=== PATIENT | female | born 1945 | race Caucasian/White ===

== ENCOUNTER → 2016-04-27 | Outpatient (CLI) | payer MEDICARE ==
[2016-04-27 14:48] LABS: Basophils % (A) 1 %; CHCM 33.2; Eosinophils # (A) 0.2 k/uL (0-0.7); Eosinophils % (A) 3 %; HCT 42.5 % (34.0-46.0); HDW 2.74; HGB 13.9 gm/dL (11.4-16.0); Luc # (Auto) 0.14; Luc % (Auto) 3; Lymphocytes # (A) 1.5 k/uL (1.0-4.8); Lymphocytes % (A) 27 %; MCH 29.8 pg (25.0-35.0); MCHC 32.8 g/dL (31.0-37.0); MCV 90.8 fL (80.0-100.0); Mean Platelet Volume 7.3; Monocytes # (A) 0.3 k/uL (0-1.0); Monocytes % (A) 6 %; Neutrophils # (A) 3.3 k/uL (1.3-7.7); Neutrophils % (A) 61 %; RBC 4.68 m/uL (3.80-5.40); RDW 13.5 % (11.5-15.5); WBC 5.5 k/uL (3.8-10.6); WBC (Perox) 5.78
[2016-04-27 15:21] LABS: Appearance,Urine Clear (Clear); Bilirubin,Urine Negative (Negative); Glucose,Urine (UA) 2+ (Negative); Ketones,Urine Negative (Negative); Leukocyte Esterase,Urine Moderate (Negative); Nitrite,Urine Negative (Negative); Particle Count 1279; Protein,Urine Negative (Negative); RBC,Urine <1 /hpf (0-5); Specific Gravity,Urine 1.007 (1.001-1.035); Squamous Epithelial Cell,Urine <1 /hpf (0-4); UA Billing (MACRO vs. MICRO) MICRO; Urobilinogen,Urine <2.0 mg/dL (<2.0); WBC,Urine 5 /hpf (0-5)
[2016-04-27 16:38] LABS: Calcium 9.2 mg/dL (8.4-10.2); Magnesium 2.1 mg/dL (1.6-2.3); Phosphorous 3.7 mg/dL (2.5-4.5); Potassium 4.6 mmol/L (3.5-5.1); Uric Acid 5.9 mg/dL (3.7-7.4)
[2016-04-27 16:49] LABS: % Iron Saturation 23.9 % (20-50)
== END | disposition home or self-care (01) ==
LOC: LABWHC1 14:14
PROVIDERS: ATTEND Internal Medicine Nephrology
DX: N39.0 Urinary tract infection, site not specified (principal); N18.3 Chronic kidney disease, stage 3 (moderate); D64.9 Anemia, unspecified; E55.9 Vitamin D deficiency, unspecified; E21.3 Hyperparathyroidism, unspecified; M10.9 Gout, unspecified
CPT/HCPCS: 36415; 80048; 81001; 82040; 82306; 82728; 83540; 83550; 83735; 83970; 84100; 84550; 85025; 87086

== ENCOUNTER → 2016-09-28 | Outpatient (CLI) | payer MEDICARE ==
[2016-09-28 13:48] LABS: Basophils # (A) 0.1 k/uL (0-0.2); Basophils % (A) 1 %; CH 30.5; CHCM 33.5; Eosinophils # (A) 0.2 k/uL (0-0.7); Eosinophils % (A) 3 %; HCT 44.8 % (34.0-46.0); HDW 2.69; HGB 14.9 gm/dL (11.4-16.0); Luc # (Auto) 0.12; Luc % (Auto) 2; Lymphocytes # (A) 1.3 k/uL (1.0-4.8); Lymphocytes % (A) 24 %; MCH 30.4 pg (25.0-35.0); MCHC 33.2 g/dL (31.0-37.0); MCV 91.7 fL (80.0-100.0); Mean Platelet Volume 7.2; Monocytes # (A) 0.4 k/uL (0-1.0); Monocytes % (A) 6 %; Neutrophils # (A) 3.6 k/uL (1.3-7.7); Neutrophils % (A) 64 %; RBC 4.89 m/uL (3.80-5.40); RDW 14.2 % (11.5-15.5); WBC 5.6 k/uL (3.8-10.6); WBC (Perox) 5.52
[2016-09-28 13:51] LABS: Appearance,Urine Clear (Clear); Bacteria,Urine Rare /hpf; Bilirubin,Urine Negative (Negative); Glucose,Urine (UA) 2+ (Negative); Ketones,Urine Negative (Negative); Leukocyte Esterase,Urine Large (Negative); Mucus,Urine Rare /hpf; Nitrite,Urine Negative (Negative); Particle Count 2951; Protein,Urine Negative (Negative); Specific Gravity,Urine 1.005 (1.001-1.035); Squamous Epithelial Cell,Urine 1 /hpf (0-4); UA Billing (MACRO vs. MICRO) MICRO; Urobilinogen,Urine <2.0 mg/dL (<2.0); WBC,Urine 5 /hpf (0-5)
[2016-09-28 14:05] LABS: Calcium 9.8 mg/dL (8.4-10.2); Magnesium 1.9 mg/dL (1.6-2.3); Phosphorous 4.2 mg/dL (2.5-4.5); Potassium 4.8 mmol/L (3.5-5.1); Uric Acid 6.2 mg/dL (3.7-7.4)
[2016-09-28 14:13] LABS: % Iron Saturation 23.9 % (20-50)
== END ==
LOC: LABWHC1 13:16
PROVIDERS: ATTEND Internal Medicine Nephrology
DX: E55.9 Vitamin D deficiency, unspecified (principal); D63.1 Anemia in chronic kidney disease; N18.3 Chronic kidney disease, stage 3 (moderate); M10.9 Gout, unspecified; N39.0 Urinary tract infection, site not specified
CPT/HCPCS: 36415; 80048; 81001; 82306; 82728; 83540; 83550; 83735; 83970; 84100; 84550; 85025

== ENCOUNTER → 2017-04-04 | Outpatient (CLI) | payer MEDICARE ==
[2017-04-04 14:29] LABS: Basophils # (A) 0.1 k/uL (0-0.2); Basophils % (A) 1 %; Eosinophils # (A) 0.2 k/uL (0-0.7); Eosinophils % (A) 3 %; HGB 14.6 gm/dL (11.4-16.0); Lymphocytes # (A) 1.5 k/uL (1.0-4.8); Lymphocytes % (A) 24 %; MCH 30.9 pg (25.0-35.0); MCHC 33.3 g/dL (31.0-37.0); MCV 92.9 fL (80.0-100.0); Mean Platelet Volume 6.9; Monocytes # (A) 0.3 k/uL (0-1.0); Monocytes % (A) 5 %; Neutrophils % (A) 65 %; Platelet Count 287 k/uL (150-450); RBC 4.74 m/uL (3.80-5.40); RDW 13.2 % (11.5-15.5); WBC 6.1 k/uL (3.8-10.6)
[2017-04-04 14:45] LABS: Calcium 9.4 mg/dL (8.4-10.2); Magnesium 1.8 mg/dL (1.6-2.3); Phosphorus 4.3 mg/dL (2.5-4.5); Potassium 4.4 mmol/L (3.5-5.1); Uric Acid 6.6 mg/dL (3.7-7.4)
[2017-04-04 15:07] LABS: Appearance,Urine Cloudy (Clear); Bacteria,Urine Many /hpf; Bilirubin,Urine Negative (Negative); Blood,Urine Negative (Negative); Color,Urine Yellow; Glucose,Urine (UA) 4+ (Negative); Hyaline Casts,Urine 19 /lpf (0-2); Ketones,Urine Negative (Negative); Leukocyte Esterase,Urine Moderate (Negative); Mucus,Urine Rare /hpf; Nitrite,Urine Negative (Negative); PH, Urine 5.5 (5.0-8.0); Protein,Urine Trace (Negative); RBC,Urine 1 /hpf (0-5); Squamous Epithelial Cell,Urine 9 /hpf (0-4); Urobilinogen,Urine <2.0 mg/dL (<2.0); WBC,Urine 10 /hpf (0-5)
[2017-04-04 18:58] LABS: Iron Saturation 16.67 (12.00-45.00)
[2017-04-04 20:25] LABS: Parathyroid Hormone Intact 74.2 pg/mL (14.0-72.0)
== END | disposition home or self-care (01) ==
LOC: LABWHC1 13:45
PROVIDERS: ATTEND Internal Medicine Nephrology
DX: N39.0 Urinary tract infection, site not specified (principal); D64.9 Anemia, unspecified; E55.9 Vitamin D deficiency, unspecified; E21.3 Hyperparathyroidism, unspecified; M10.9 Gout, unspecified; N18.3 Chronic kidney disease, stage 3 (moderate)
CPT/HCPCS: 36415; 80048; 81001; 82306; 82728; 83540; 83550; 83735; 83970; 84100; 84550; 85025

== ENCOUNTER → 2017-04-05 | Outpatient (CLI) | payer MEDICARE ==
--- NOTE | 2017-04-05 14:10 | XR ---
EXAMINATION TYPE: XR wrist limited LT DATE OF EXAM: 04/05/2017 CLINICAL HISTORY: Palpable mass of the left lateral aspect of the distal forearm and wrist with known arthritis. TECHNIQUE: Frontal and lateral views of the left wrist were obtained. COMPARISON: None FINDINGS: There is no acute fracture/dislocation evident in the left wrist. There is symmetric mild soft tissue swelling of the left wrist medially and laterally with obscuration of the fat planes at t he volar aspect of the wrist due to soft tissue swelling. No focal identifiable mass is noted within the soft tissues. Severe joint space narrowing, osteophytes, opposing surface sclerosis and [id number] articulation a re seen at the first carpometacarpal joint of the left hand with intercarpal distance narrowing and s mall carpal bone osseous cystic changes. Osseous subchondral cysts are also seen of the distal radius . No erosions or periosteal reaction. IMPRESSION: 1. Generalized mild soft tissue swelling of the left wrist acute fracture or dislocation. No focal so ft tissue mass. MR could be performed to evaluate for the soft tissues and further characterize the p alpable mass. 2. Extensive arthropathy of the left wrist with findings favoring osteoarthritis.
== END | disposition home or self-care (01) ==
LOC: RADXRMAIN 13:06
PROVIDERS: ATTEND Family Medicine
DX: M12.832 Other specific arthropathies, not elsewhere classified, left wrist (principal)

== ENCOUNTER → 2017-05-02 | Outpatient (CLI) | payer MEDICARE | END | disposition home or self-care (01) | LOC: RADECHMAIN 12:47 | PROVIDERS: ATTEND Family Medicine | DX: R00.2 Palpitations (principal) | CPT/HCPCS: 93270; 93271 ==

== ENCOUNTER → 2017-08-09 | Outpatient (CLI) | payer MEDICARE ==
[2017-08-09 16:24] LABS: Basophils # (A) 0.1 k/uL (0-0.2); Basophils % (A) 1 %; Eosinophils # (A) 0.3 k/uL (0-0.7); Eosinophils % (A) 4 %; HCT 38.4 % (34.0-46.0); HGB 13.1 gm/dL (11.4-16.0); Lymphocytes # (A) 1.9 k/uL (1.0-4.8); Lymphocytes % (A) 31 %; MCH 30.2 pg (25.0-35.0); MCHC 34.3 g/dL (31.0-37.0); MCV 88.2 fL (80.0-100.0); Mean Platelet Volume 6.4; Monocytes # (A) 0.4 k/uL (0-1.0); Monocytes % (A) 6 %; Neutrophils # (A) 3.3 k/uL (1.3-7.7); Neutrophils % (A) 55 %; Platelet Count 237 k/uL (150-450); RBC 4.35 m/uL (3.80-5.40); RDW 14.3 % (11.5-15.5)
[2017-08-09 16:50] LABS: Calcium 9.5 mg/dL (8.4-10.2); Potassium 4.4 mmol/L (3.5-5.1); Uric Acid 6.1 mg/dL (3.7-7.4)
[2017-08-09 16:54] LABS: Amorphous Sediment,Urine Rare /hpf; Appearance,Urine Cloudy (Clear); Bacteria,Urine Many /hpf; Bilirubin,Urine Negative (Negative); Blood,Urine Negative (Negative); Color,Urine Light Yellow; Glucose,Urine (UA) Negative (Negative); Hyaline Casts,Urine 5 /lpf (0-2); Ketones,Urine Negative (Negative); Leukocyte Esterase,Urine Moderate (Negative); Mucus,Urine Rare /hpf; Nitrite,Urine Negative (Negative); PH, Urine 5.5 (5.0-8.0); Protein,Urine Negative (Negative); Specific Gravity,Urine 1.006 (1.001-1.035); Squamous Epithelial Cell,Urine 5 /hpf (0-4); Urobilinogen,Urine <2.0 mg/dL (<2.0); WBC,Urine 18 /hpf (0-5)
[2017-08-10 01:07] LABS: Iron Saturation 16.09 (12.00-45.00)
[2017-08-10 01:11] LABS: Parathyroid Hormone Intact 56.3 pg/mL (14.0-72.0)
[2017-08-10 01:17] LABS: Vitamin D 25 Hydroxy 37.6 ng/mL (30.0-100.0)
== END | disposition home or self-care (01) ==
LOC: LABWHC1 15:21
PROVIDERS: ATTEND Nurse Practitioner Family
DX: E55.9 Vitamin D deficiency, unspecified (principal); D63.1 Anemia in chronic kidney disease; N18.3 Chronic kidney disease, stage 3 (moderate); M10.9 Gout, unspecified
CPT/HCPCS: 36415; 80048; 81001; 82306; 82728; 83540; 83550; 83970; 84550; 85025

== ENCOUNTER → 2018-07-26 | Outpatient (CLI) | payer MEDICARE ==
--- NOTE | 2018-07-27 09:11 | MM ---
Reason for exam: clinical finding. History: Patient is postmenopausal and history of other cancer. Benign excisional biopsy of the right breast, 1970. Took hormonal contraceptives for 9 years. Physical Findings: Nurse Summary: 2cm nodule in the right breast at 12 o'clock and a 2cm nodule int he left breast at 1 o'clock (nurse dw). MG 3D Diag Mammo W/Cad ARTHUR Bilateral CC and MLO view(s) were taken. No prior studies available for comparison. No comparisons. Bilateral circumscribed nodules. These results were verbally communicated with the patient and result sheet given to the patient on 07/26/18. ASSESSMENT: Incomplete: need additional imaging evaluation, BI-RAD 0 RECOMMENDATION: Ultrasound of both breasts.
--- NOTE | 2018-07-27 09:12 | USB ---
Reason for exam: additional evaluation requested from abnormal screening. History: Patient is postmenopausal and history of other cancer. Benign excisional biopsy of the right breast, 1970. Took hormonal contraceptives for 9 years. US Breast Limited BILAT Right limited breast ultrasound including focal area of concern, retroareolar and axilla demonstrates a 0.6 x 0.6 x 0.5cm oval node at 10 o'clock. Left limited breast ultrasound including focal area of concern, retroareolar and axilla demonstrates a 0.7 x 0.7 x 0.5cm oval node at 1 o'clock. These results were verbally communicated with the patient and result sheet given to the patient on 07/26/18. ASSESSMENT: Benign, BI-RAD 2 RECOMMENDATION: Routine screening mammogram of both breasts in 1 year. Manage patient on a clinical basis.
== END | disposition home or self-care (01) ==
LOC: RADMAMWWP 13:46
PROVIDERS: ATTEND Family Medicine
DX: N63.0 Unspecified lump in unspecified breast (principal); R92.8 Other abnormal and inconclusive findings on diagnostic imaging of breast
CPT/HCPCS: 77066; 76642; G0279; 77062

== ENCOUNTER → 2020-06-12 | Outpatient (CLI) | payer MEDICARE ==
--- NOTE | 2020-06-14 19:05 | US ---
EXAMINATION TYPE: US kidneys/renal and bladder DATE OF EXAM: 06/12/2020 COMPARISON: 09/11/2015 CLINICAL HISTORY: 75-year-old female N18.3 CKD stage 3. EXAM MEASUREMENTS: Right Kidney: 9.3 x 4.1 x 4.6 cm Left Kidney: 9.8 x 4.6 x 4.0 cm Right Kidney: Similar lobulated contour. No hydronephrosis. Some mild perinephric edema is noted. Left Kidney: lobular contour, prominent 1.5 cm midpole cortical lobulation, appears similar to previo us ultrasound. Given a more hypoechoic appearance here now, precautionary 6 month follow-up is recomm ended. No hydronephrosis. Bladder: wnl IMPRESSION: 1. Mild perinephric edema which may be seen with senescent change or chronic kidney disease. 2. No hydronephrosis. 3. Focal 1.5 cm mid pole contour lobulation of the left kidney. There was a similar morphology previo usly. Precautionary six-month follow-up recommended as the area appears more hypoechoic, probably on a technical basis.
== END | disposition home or self-care (01) ==
LOC: RADUSWWP 13:40
PROVIDERS: ATTEND Internal Medicine Nephrology
DX: N18.30 Chronic kidney disease, stage 3 unspecified (principal); Q63.1 Lobulated, fused and horseshoe kidney
CPT/HCPCS: 76770

== ENCOUNTER → 2020-07-22 | Outpatient (CLI) | payer MEDICARE ==
[2020-07-23 03:32] LABS: African American GFR (CKD) 29.2 (60.0-200.0); Anion Gap 10.8 mmol/L (4.00-12.00); Calcium 8.7 mg/dL (8.7-10.3); Carbon Dioxide 24.2 mmol/L (21.6-31.8); Non-African American GFR(CKD) 25.2 (60.0-200.0); Potassium 5.1 mmol/L (3.5-5.5)
== END | disposition home or self-care (01) ==
LOC: LABWHC1 13:08
PROVIDERS: ATTEND Internal Medicine Interventional Cardiology
DX: I27.20 Pulmonary hypertension, unspecified (principal); I25.10 Atherosclerotic heart disease of native coronary artery without angina pectoris
CPT/HCPCS: 36415; 80048

== ENCOUNTER → 2020-12-18 | Outpatient (CLI) | payer MEDICARE ==
--- NOTE | 2020-12-18 13:24 | XR ---
EXAMINATION TYPE: XR Hip Complete RT DATE OF EXAM: 12/18/2020 CLINICAL HISTORY: pain TECHNIQUE: AP and frogleg views of the right hip are obtained. COMPARISON: None. FINDINGS: There is no acute fracture/dislocation evident. The joint space appears within normal li mits. The overlying soft tissue appears unremarkable. IMPRESSION: 1. There is no acute fracture or dislocation. ICD 10 NO FRACTURE, INITIAL EVALUATION
== END | disposition home or self-care (01) ==
LOC: RADXRMAIN 12:53
PROVIDERS: ATTEND Family Medicine
DX: M25.551 Pain in right hip (principal)
CPT/HCPCS: 73502

== ENCOUNTER → 2021-02-25 | Outpatient (CLI) | payer MEDICARE ==
--- NOTE | 2021-02-25 19:32 | US ---
EXAMINATION TYPE: US kidneys/renal and bladder DATE OF EXAM: 02/25/2021 COMPARISON: 06/12/2020 CLINICAL HISTORY: 75-year-old female N18.30 Chronic kidney disease, stage III. TECHNIQUE: Multiple sonographic images of the kidneys and bladder are obtained. FINDINGS: EXAM MEASUREMENTS: Right Kidney: 9.1x5.2x4.2 cm Left Kidney: 11.0x5.8x4.8 cm Right Kidney: No hydronephrosis. Left Kidney: No hydronephrosis. There is a 2.2x1.5x1.4cm hypoechoic cortical lesion at the midpole, p reviously measured 1.4 cm. Bladder: wnl Bilateral Jets seen: Yes IMPRESSION: 1. Unable to exclude interval enlargement of a hypoechoic cortical lobulation at the left kidney midp ole from 1.4 cm now measuring 2.2 cm. Indolent neoplasm/RCC should be excluded. Recommend contrast en hanced renal mass protocol CT or MRI. 2. No hydronephrosis.
== END | disposition home or self-care (01) ==
LOC: RADUSWWP 14:45
PROVIDERS: ATTEND Family Medicine
DX: N18.30 Chronic kidney disease, stage 3 unspecified (principal)
CPT/HCPCS: 76770

== ENCOUNTER → 2021-03-08 | Outpatient (CLI) | payer MEDICARE | END | disposition home or self-care (01) | LOC: LABWHC1 11:53 | PROVIDERS: ATTEND Family Medicine | DX: Z20.822 Contact with and (suspected) exposure to COVID-19 (principal); J06.9 Acute upper respiratory infection, unspecified ==

== ENCOUNTER → 2021-06-24 | Outpatient (CLI) | payer MEDICARE ==
--- NOTE | 2021-06-24 16:36 | US ---
EXAMINATION TYPE: US kidneys/renal and bladder DATE OF EXAM: 06/24/2021 COMPARISON: CT abdomen 2016. Most recent ultrasound February 25, 2021 CLINICAL HISTORY: R31.9 Hematuria. Hematuria EXAM MEASUREMENTS: Right Kidney: 8.6 x 3.4 x 3.9 cm Left Kidney: 9.6 x 3.9 x 3.4 cm Right Kidney: No hydronephrosis or masses seen Left Kidney: Hypoechoic area seen upper pole measuring 2.2 x 1.3 x 1.7 cm. Bladder: anechoic Bilateral Jets seen: Yes There is no evidence for hydronephrosis at this point in time. Cortical thinning in the left kidney. Redemonstration isoechoic area laterally mid pole level left kidney felt to reflect lobulated cortex on image [address] coronal image 59. The urinary bladder is satisfactorily distended. B ilateral ureteral jets are seen. IMPRESSION: Source of hematuria is not identified. If symptoms persist further investigation with verito al protocol contrast enhanced CT or MRI would be advised.
== END | disposition home or self-care (01) ==
LOC: RADUSWWP 14:11
PROVIDERS: ATTEND Internal Medicine Nephrology
DX: R31.9 Hematuria, unspecified (principal)
CPT/HCPCS: 76770

== ENCOUNTER 2022-07-05 13:24 | Inpatient (IN) | payer MEDICARE ==
[2022-07-05] MEDS ORDERED: SODIUM CHLORIDE 0.9% 1,000 ML IV STA (14:29)
[2022-07-05] MEDS ORDERED: PANTOPRAZOLE 40 MG/10 ML VIAL IVP STA (14:30)
[2022-07-05 15:00] LABS: Anisocytosis Slight; Basophils % (A) 1 %; Eosinophils # (A) 0.3 k/uL (0-0.7); Eosinophils % (A) 5 %; HCT 22.8 % (34.0-46.0); HGB 7.2 gm/dL (11.4-16.0); Hypochromasia Marked; Lymphocytes # (A) 1.2 k/uL (1.0-4.8); Lymphocytes % (A) 23 %; MCH 31.6 pg (25.0-35.0); MCHC 31.8 g/dL (31.0-37.0); MCV 99.3 fL (80.0-100.0); Macrocytosis Slight; Mean Platelet Volume 8.2; Monocytes # (A) 0.3 k/uL (0-1.0); Monocytes % (A) 6 %; Neutrophils # (A) 3.5 k/uL (1.3-7.7); Neutrophils % (A) 64 %; Platelet Count 331 k/uL (150-450); RBC 2.29 m/uL (3.80-5.40); WBC 5.5 k/uL (3.8-10.6)
[2022-07-05] MEDS ORDERED: GABAPENTIN 100 MG CAP PO STA (15:09)
[2022-07-05] MEDS ORDERED: oxyCODONE-APAP 10-325MG 1 EACH TAB PO STA (15:09)
[2022-07-05 15:13] LABS: Albumin 3.7 g/dL (3.5-5.0); Calcium 8.1 mg/dL (8.4-10.2); Potassium 4.3 mmol/L (3.5-5.1); Total Bilirubin 0.6 mg/dL (0.2-1.3); Total Protein 6.5 g/dL (6.3-8.2)
[2022-07-05 15:15] LABS: INR 0.9 (<1.2); Partial Thromboplastin Time 20.4 sec (22.0-30.0)
[2022-07-05 15:18] LABS: Prothrombin Time 9.9 sec (9.0-12.0)
[2022-07-05] MEDS ORDERED: NALOXONE 0.4 MG/ML 1 ML VIAL IV PRN (16:54)
[2022-07-05] MEDS ORDERED: SODIUM CHLORIDE 0.9% 1,000 ML IV SCH (17:00)
--- NOTE | 2022-07-05 17:04 | ED ---
GI Bleed HPI - General Chief complaint: GI Bleed Stated complaint: Abnormal Labs Time Seen by Provider: 07/05/22 14:29 Source: patient Mode of arrival: ambulatory Limitations: no limitations - History of Present Illness Initial comments: Patient is a 77-year-old female presents to the emergency department for rectal bleeding. Patient was evaluated at [facility] on 06/23/22 for rectal bleeding. At this time hemoglobin was 7.8, very decreased from her previous on 06/16 at 11.4. Patient was given a unit of blood. Her warfarin and Plavix were stopped. Patient CT of the abdomen and pelvis which showed no acute changes. She had EGD and colonoscopy showing nonbleeding gastric ulcer, antral gastritis, non-bleeding peptic ulcer, diverticulosis, internal hemorrhoid. Apparently they did not have capsule endoscopy to visualize the small bowel. Patient was referred to Rachel Matias she has not arranged a set appointment yet. Patient continues to have intermittent rectal bleeding that she describes as bright red streaks in her stool and sometimes in the toilet. Patient has generalized pain in her abdomen which she states is unchanged. Overall patient feels very fatigued and weak. She denies fever, chills, nausea, vomiting. Patient is on Protonix. She currently is not on her warfarin or Plavix. Yesterday she got labs drawn her primary care provider she was called today and told her hemoglobin was 6.9 instructed to come to the emergency department. - Related Data Home Medications Medication Instructions Recorded Confirmed Bimatoprost [Lumigan 0.01% Ophth 1 drop BOTH EYES DAILY 06/07/21 04/29/22 Soln] Bumetanide [Bumex] 1 mg PO BID 06/07/21 04/29/22 DULoxetine HCL [Cymbalta] 60 mg PO HS 06/07/21 04/29/22 Ergocalciferol [Vitamin D2 (1250 1,250 mcg PO Q14D 06/07/21 04/29/22 Mcg = 19321 Iu)] Gabapentin [Neurontin] 100 mg PO TID 06/07/21 04/29/22 INSULIN LISPRO (humaLOG) [humaLOG] 7 units SQ AC-TID 06/07/21 04/29/22 Insulin Glargine,Hum.rec.anlog 40 units SQ HS 06/07/21 04/29/22 [Peri Duquear] Isosorbide Mononitrate ER [Imdur] 60 mg PO DAILY 06/07/21 04/29/22 Nitroglycerin 0.4 mg SUBLINGUAL Q5M PRN 06/07/21 04/29/22 Potassium Chloride ER [K-Dur 20] 20 meq PO MOWEFR 06/07/21 04/29/22 Timolol [Betimol 0.5% Ophth Soln] 1 drop RIGHT EYE BID 06/07/21 04/29/22 oxyCODONE-APAP 10-325MG [Percocet 1 tab PO Q8HR PRN 06/07/21 04/29/22 10-325 mg] calcitrioL [Calcitriol] 0.25 mcg PO WEEKLY 04/04/22 04/29/22 Cyanocobalamin (Vitamin B-12) 1,000 mcg PO DAILY 07/05/22 07/05/22 [Vitamin B-12] Pantoprazole Sodium [Protonix] 40 mg PO AC-BID 07/05/22 07/05/22 Rosuvastatin Calcium 5 mg PO DAILY 07/05/22 07/05/22 carvediloL [Coreg] 3.125 mg PO BID 07/05/22 07/05/22 Allergies Allergy/AdvReac Type Severity Reaction Status Date / Time levofloxacin Allergy Unknown Verified 07/05/22 16:25 Penicillins Allergy Rash/Hives Verified 07/05/22 16:25 pistachio nut Allergy Dyspnea Verified 07/05/22 16:25 Wyooily-EHX-GyI Reductase Allergy Unknown Verified 07/05/22 16:25 Inhibitor Sulfa (Sulfonamide Allergy Rash/Hives Verified 07/05/22 16:25 Antibiotics) Review of Systems ROS Statement: Those systems with pertinent positive or pertinent negative responses have been documented in the HPI. ROS Other: All systems not noted in ROS Statement are negative. Past Medical History Past Medical History: Diabetes Mellitus, GERD/Reflux, GI Bleed, Myocardial Infarction (MS), Osteoarthritis (OA) Additional Past Medical History / Comment(s): CHRONIC BACK PAIN. Type 2 Diabetes Last Myocardial Infarction Date:: 05/11/2021 History of Any Multi-Drug Resistant Organisms: None Reported Past Surgical History: Back Surgery, Heart Catheterization With Stent, Hernia Repair, Joint Replacement, Orthopedic Surgery Additional Past Surgical History / Comment(s): L4, L5 LAMI WITH HARDWARE. RIGHT THORACIC STEAL. LEFT HEEL SPUR. RIGHT BACKERS CYST. BILATERAL KNEE ARTHROS COPIES. LEFT CHARLY. RIGHT ACHILLES TENDON REPAIR. BILATERAL CARPAL TUNNELS. BILATERAL CATARACTS. RIGHT TOTAL KNEE REPLACEMENT. LEFT ROTATOR CUFF AND BICEP REPAIR. Cardiac cath- RCA, LAD, CIRC. 05/13/2021. Past Anesthesia/Blood Transfusion Reactions: No Reported Reaction Date of Last Stent Placement:: 05/11/2021 Past Psychological History: No Psychological Hx Reported Smoking Status: Former smoker Past Alcohol Use History: None Reported Past Drug Use History: None Reported General Exam Limitations: no limitations General appearance: alert, in no apparent distress Head exam: Present: atraumatic, normocephalic, normal inspection Eye exam: Present: normal appearance, PERRL, EOMI. Absent: scleral icterus, conjunctival injection, periorbital swelling Respiratory exam: Present: normal lung sounds bilaterally. Absent: respiratory distress, wheezes, rales, rhonchi, stridor Cardiovascular Exam: Present: regular rate, normal rhythm, normal heart sounds. Absent: systolic murmur, diastolic murmur, rubs, gallop, clicks GI/Abdominal exam: Present: soft, normal bowel sounds. Absent: distended, tenderness, guarding, rebound, rigid Rectal exam: Present: normal rectal tone, bloody stool, hemorrhoids Neurological exam: Present: alert, oriented X3, CN II-XII intact Psychiatric exam: Present: normal affect, normal mood Skin exam: Present: warm, dry, intact, normal color. Absent: rash Course Vital Signs 07/05/22 07/05/22 07/05/22 13:40 15:02 16:15 Temperature 97.7 F 98.0 F Pulse Rate 69 80 66 Respiratory 20 17 Rate Blood Pressure 116/52 160/73 O2 Sat by Pulse 100 99 Oximetry 07/05/22 17:05 Temperature 97.9 F Pulse Rate 65 Respiratory 18 Rate Blood Pressure 158/69 O2 Sat by Pulse 98 Oximetry Medical Decision Making - Medical Decision Making Was pt. sent in by a medical professional or institution (, PA, TREASURY CONSULTANT, urgent care, hospital, or fpc...) When possible be specific @ -No Did you speak to anyone other than the patient for history (EMS, parent, family, police, friend...)? What history was obtained from this source @ -No Did you review nursing and triage notes (agree or disagree)? Why? @ -I reviewed and agree with nursing and triage notes Were old charts reviewed (outside hosp., previous admission, EMS record, old EKG, old radiological studies, urgent care reports/EKG's, fpc records)? Report findings @ -Reviewed previous colonoscopy by Dr. Dyer in April after positive cologuard which showed diverticulosis Differential Diagnosis (chest pain, altered mental status, abdominal pain women, abdominal pain men, vaginal bleeding, weakness, fever, dyspnea, syncope, headache, dizziness, GI bleed, back pain, seizure, CVA, palpatations, mental health)? @ -Differential GI Bleed: Esophageal varices, aortoenteric fistula, Juju-Murphy, gastritis, peptic ulcer disease, diverticulosis, inflammatory bowel disease, hemorrhoids, fissure, colitis, malignancy, Meckels diverticulum, this is not meant to be an all- inclusive list. EKG interpreted by me (3pts min.). @ -As above X-rays interpreted by me (1pt min.). @ -None done CT interpreted by me (1pt min.). @ -None done U/S interpreted by me (1pt. min.). @ -None done What testing was considered but not performed or refused? (CT, X-rays, U/S, labs)? Why? @ -Considered CT imaging Lewis patient has mild abdominal pain unchanged with no abdominal tenderness What meds were considered but not given or refused? Why? @ -None Did you discuss the management of the patient with other professionals (pr ofessionals i.e. , PA, TREASURY CONSULTANT, lab, RT, psych nurse, social psychologist, culinary director, teacher, logistics officer, rehabilitation caseworker)? Give summary @ -Yes, Dr. Dyer. See hospital course. Was smoking cessation discussed for >3mins.? @ -No Was critical care preformed (if so, how long)? @ -No Were there social determinants of health that impacted care today? How? (Homelessness, low income, unemployed, alcoholism, drug addiction, transportation, low edu. Level, literacy, decrease access to med. care, half-way, rehab)? @ -No Was there de-escalation of care discussed even if they declined (Discuss DNR or withdrawal of care, Hospice)? DNR status @ -No What co-morbidities impacted this encounter? (DM, HTN, Smoking, COPD, CAD, Cance r, CVA, ARF, Chemo, Hep., AIDS, mental health diagnosis, sleep apnea, morbid obesity)? @ -None Was patient admitted / discharged? Hospital course, mention meds given and route, prescriptions, significant lab abnormalities, going to OR and other pertinent info. @ -Patient presenting for GI bleed. Patient resting comfortably she is hemodynamically stable. Active bleeding visualized on rectal exam. Laboratory studies obtained. Hemoglobin is 7.2. Kidney function consistent with chronic kidney disease. Patient given Protonix and IV fluids she remained stable. Discussed case with Dr. Dyer who will perform scope. Case discussed with Riana Arce from [facility] who accepts admission Dr. Dyer is on consult Undiagnosed new problem with uncertain prognosis? @ -No Drug Therapy requiring intensive monitoring for toxicity (Heparin, Nitro, Insulin, Cardizem)? @ -No Were any procedures done? @ -No Diagnosis/symptom? @ -GI bleed Acute, or Chronic, or Acute on Chronic? @ -acute Uncomplicated (without systemic symptoms) or Complicated (systemic symptoms)? @ -complicated Side effects of treatment? @ -No Exacerbation, Progression, or Severe Exacerbation? @ -No Poses a threat to life or bodily function? How? (Chest pain, USA, MS, pneumonia, PE, COPD, DKA, ARF, appy, cholecystitis, CVA, Diverticulitis, Homicidal, S uicidal, threat to staff... and all critical care pts) @ -No Dr. Horner is my attending - Lab Data Result diagrams: 07/05/22 14:50 07/05/22 14:50 Lab Results 07/05/22 07/05/22 07/05/22 Range/Units 14:50 14:50 14:50 WBC 5.5 (3.8-10.6) k/uL RBC 2.29 L (3.80-5.40) m/uL Hgb 7.2 L (11.4-16.0) gm/dL Hct 22.8 L (34.0-46.0) % MCV 99.3 (80.0-100.0) fL MCH 31.6 (25.0-35.0) pg MCHC 31.8 (31.0-37.0) g/dL RDW 17.0 H (11.5-15.5) % Plt Count 331 (150-450) k/uL MPV 8.2 Neutrophils % 64 % Lymphocytes % 23 % Monocytes % 6 % Eosinophils % 5 % Basophils % 1 % Neutrophils # 3.5 (1.3-7.7) k/uL Lymphocytes # 1.2 (1.0-4.8) k/uL Monocytes # 0.3 (0-1.0) k/uL Eosinophils # 0.3 (0-0.7) k/uL Basophils # 0.0 (0-0.2) k/uL Hypochromasia Marked Anisocytosis Slight Macrocytosis Slight PT 9.9 (9.0-12.0) sec INR 0.9 (<1.2) APTT 20.4 L (22.0-30.0) sec Sodium 138 (137-145) mmol/L Potassium 4.3 (3.5-5.1) mmol/L Chloride 101 (98-107) mmol/L Carbon Dioxide 29 (22-30) mmol/L Anion Gap 8 mmol/L BUN 23 H (7-17) mg/dL Creatinine 1.94 H (0.52-1.04) mg/dL Est GFR (CKD-EPI)AfAm 28 (>60 ml/min/1.73 sqM) Est GFR (CKD-EPI)NonAf 24 (>60 ml/min/1.73 sqM) Glucose 84 (74-99) mg/dL Calcium 8.1 L (8.4-10.2) mg/dL Total Bilirubin 0.6 (0.2-1.3) mg/dL AST 32 (14-36) U/L ALT 16 (4-34) U/L Alkaline Phosphatase 50 (38-126) U/L Total Protein 6.5 (6.3-8.2) g/dL Albumin 3.7 (3.5-5.0) g/dL Stool Occult Blood (Negative) Blood Type Blood Type Confirm Blood Type Recheck Bld Type Recheck Status Antibody Screen Spec Expiration Date 07/05/22 07/05/22 07/05/22 Range/Units 14:50 15:02 15:10 WBC (3.8-10.6) k/uL RBC (3.80-5.40) m/uL Hgb (11.4-16.0) gm/dL Hct (34.0-46.0) % MCV (80.0-100.0) fL MCH (25.0-35.0) pg MCHC (31.0-37.0) g/dL RDW (11.5-15.5) % Plt Count (150-450) k/uL MPV Neutrophils % % Lymphocytes % % Monocytes % % Eosinophils % % Basophils % % Neutrophils # (1.3-7.7) k/uL Lymphocytes # (1.0-4.8) k/uL Monocytes # (0-1.0) k/uL Eosinophils # (0-0.7) k/uL Basophils # (0-0.2) k/uL Hypochromasia Anisocytosis Macrocytosis PT (9.0-12.0) sec INR (<1.2) APTT (22.0-30.0) sec Sodium (137-145) mmol/L Potassium (3.5-5.1) mmol/L Chloride (98-107) mmol/L Carbon Dioxide (22-30) mmol/L Anion Gap mmol/L BUN (7-17) mg/dL Creatinine (0.52-1.04) mg/dL Est GFR (CKD-EPI)AfAm (>60 ml/min/1.73 sqM) Est GFR (CKD-EPI)NonAf (>60 ml/min/1.73 sqM) Glucose (74-99) mg/dL Calcium (8.4-10.2) mg/dL Total Bilirubin (0.2-1.3) mg/dL AST (14-36) U/L ALT (4-34) U/L Alkaline Phosphatase (38-126) U/L Total Protein (6.3-8.2) g/dL Albumin (3.5-5.0) g/dL Stool Occult Blood Positive H (Negative) Blood Type A Negative Blood Type Confirm A Negative Blood Type Recheck No Previous Record Bld Type Recheck Status CABO Indicated Antibody Screen NEGATIVE Spec Expiration Date 07/08/2022 - 2349 Disposition Clinical Impression: GI bleed Disposition: ADMITTED IP TO THIS [facility] Condition: Stable Referrals: Chet Ndiaye DO [Primary Care Provider] - 1-2 days
[2022-07-05] MEDS ORDERED: NITROGLYCERIN SL TABS 0.4 MG TAB SUBLINGUAL PRN (17:20)
[2022-07-05] MEDS ORDERED: ERGOCALCIFEROL 1,250 MCG (50,000 IU) CAPSULE PO SCH (17:30)
[2022-07-05] MEDS: INSULIN ASPART (NovoLOG) 100 UNIT/ML VIAL SQ SCH (18:35)
[2022-07-05] MEDS: PANTOPRAZOLE 40 MG TABLET PO SCH (18:35)
[2022-07-05 18:39] LABS: Glucose,Whole Blood 68 mg/dL (70-110)
[2022-07-05] MEDS: DEXTROSE 5%-0.9% NACL 1,000 ML IV SCH (21:28)
[2022-07-05 21:32] LABS: Glucose,Whole Blood 128 mg/dL (70-110)
[2022-07-05] MEDS: oxyCODONE-APAP 10-325MG 1 EACH TAB PO PRN (21:32)
[2022-07-05] MEDS: GABAPENTIN 100 MG CAP PO SCH (21:32)
[2022-07-05] MEDS: DULoxetine HCL 60 MG CAPSULE.DR PO SCH (21:32)
[2022-07-05] MEDS: carvediloL 3.125 MG TAB PO SCH (21:32)
[2022-07-05] MEDS: TIMOLOL 0.5% OPHTH DROPS 5 ML BTL RIGHT EYE SCH (21:33)
[2022-07-05] MEDS: LATANOPROST 0.005% OPHTH DROPS 2.5 ML BTL BOTH EYES SCH (21:33)
[2022-07-05] MEDS: INSULIN DETEMIR (LEVEMIR) 100 UNIT/ML SYR SQ SCH (22:52)
[2022-07-06] MEDS: DEXTROSE 5%-0.9% NACL 1,000 ML IV SCH ×2 (04:25→23:59)
[2022-07-06 05:42] LABS: Anisocytosis Slight; Basophils % (A) 0 %; Eosinophils # (A) 0.2 k/uL (0-0.7); Eosinophils % (A) 4 %; HCT 22.9 % (34.0-46.0); HGB 7.1 gm/dL (11.4-16.0); Hypochromasia Marked; Lymphocytes # (A) 1.5 k/uL (1.0-4.8); Lymphocytes % (A) 26 %; MCH 31.8 pg (25.0-35.0); MCV 102.5 fL (80.0-100.0); Macrocytosis Moderate; Mean Platelet Volume 8.7; Monocytes # (A) 0.3 k/uL (0-1.0); Monocytes % (A) 5 %; Neutrophils # (A) 3.7 k/uL (1.3-7.7); Neutrophils % (A) 63 %; Platelet Count 295 k/uL (150-450); RBC 2.23 m/uL (3.80-5.40); RDW 17.2 % (11.5-15.5); WBC 5.9 k/uL (3.8-10.6)
[2022-07-06 05:55] LABS: Glucose,Whole Blood 192 mg/dL (70-110)
[2022-07-06] MEDS: PANTOPRAZOLE 40 MG TABLET PO SCH ×2 (06:13→17:12)
[2022-07-06] MEDS: BUMETANIDE 1 MG TAB PO SCH ×2 (06:13→17:17)
[2022-07-06] MEDS: oxyCODONE-APAP 10-325MG 1 EACH TAB PO PRN ×2 (06:18→17:12)
[2022-07-06] MEDS: INSULIN ASPART (NovoLOG) 100 UNIT/ML VIAL SQ SCH ×3 (06:46→17:13)
[2022-07-06] MEDS: CYANOCOBALAMIN 500 MCG TAB PO SCH (08:09)
[2022-07-06] MEDS: ATORVASTATIN 10 MG TAB PO SCH (08:09)
[2022-07-06] MEDS: ISOSORBIDE MONONITRATE ER 60 MG TAB.ER.24H PO SCH (08:09)
[2022-07-06] MEDS: GABAPENTIN 100 MG CAP PO SCH ×3 (08:10→21:33)
[2022-07-06] MEDS: carvediloL 3.125 MG TAB PO SCH ×2 (08:10→21:33)
[2022-07-06] MEDS: TIMOLOL 0.5% OPHTH DROPS 5 ML BTL RIGHT EYE SCH ×2 (08:10→21:38)
[2022-07-06] MEDS ORDERED: MAGNESIUM CITRATE 296 ML BOTTLE PO ONE (09:43)
--- NOTE | 2022-07-06 10:21 | P.CONS ---
History of Present Illness - Reason for Consult Consult date: 07/06/22 GI bleed Requesting physician: Colby Horner - Chief Complaint weakness, black stools - History of Present Illness This pleasant 77-year-old female with a past medical history including diabetes mellitus, hypertension, hyperlipidemia, coronary artery disease who was previously on Plavix and Coumadin. Patient presented to the emergency department as directed by her primary care physician for low hemoglobin. Patient states she's been feeling weak and fatigued. Was recently hospitalized at [facility] June 25 through 06/28/2022 for GI bleed. States she had been having dark bloody and black stool. She had a significant drop in her hemoglobin and was given 1 unit of blood as well as was seen by general surgery Dr. Espinoza and underwent EGD and colonoscopy. EGD with findings of a nonbleeding gastric ulcer, nonbleeding peptic ulcer, and antral gastritis. Colonoscopy with findings of diverticulosis and internal hemorrhoid. Patient also had a screening colonoscopy on 04/29/[address] Dyer that showed scattered diverticulosis without any neoplasia. Patient has not taken any anticoagulation or Plavix since 06/22/2022. She denies NSAID use. Patient states she had 2 black tarry stools this week. She states she has a history of constipation and irregular bowel movements. States she usually has a bowel movement every 3-4 days. She is denying any abdominal pain at this time however states during her last hospitalization she had abdominal discomfort more on the lateral sides of her abdomen and some in the upper abdomen. She denies any nausea or vomiting, no fevers or chills. Denies chest pain or shortness of breath. Today's labs WBC 5.9 hemoglobin 7.1 hematocrit 22 platelet count 295,000 INR 0.9 sodium 138 potassium 4.3 BUN 23 creatinine 1.9 total bilirubin 0.6 AST 32 ALT 16 alkaline phosphatase 50. Stool occult blood positive Review of Systems REVIEW OF SYSTEMS: CARDIOPULMONARY: No chest pain or shortness of breath. Gastrointestinal: No abdominal pain. No nausea or vomiting. No hematemesis, coffee-ground emesis. Black tarry stool. GENITOURINARY: No dysuria or hematuria. MUSCULOSKELETAL: Reports normal range of motion. Joint pain. SKIN: No rashes. No jaundice. ENDOCRINE: No chills, fevers. No excessive weight gain or loss. No polydipsia or polyuria. PSYCHIATRIC: Unremarkable. NEUROLOGY: No change in mental status. Denies headache. ENT: Vision unremarkable. CONSTITUTIONAL: No recent weight loss. No fever, chills, night sweats. Increased weakness and fatigue. Dizziness. Past Medical History Past Medical History: Coronary Artery Disease (CAD), Heart Failure, Diabetes Mellitus, GERD/Reflux, GI Bleed, Myocardial Infarction (ME), Osteoarthritis (OA), Renal Disease Additional Past Medical History / Comment(s): CHRONIC BACK PAIN. Type 2 Diabetes, ME 05/18 Last Myocardial Infarction Date:: 05/11/2021 History of Any Multi-Drug Resistant Organisms: None Reported Past Surgical History: Back Surgery, Heart Catheterization With Stent, Hernia Repair, Joint Replacement, Orthopedic Surgery Additional Past Surgical History / Comment(s): L3-S1 LAMI WITH HARDWARE. RIGHT THORACIC STEAL. LEFT HEEL SPUR. RIGHT BAKERS CYST. BILATERAL KNEE ARTHROSCOPIES. LEFT TKA. RIGHT ACHILLES TENDON REPAIR. BILATERAL CARPAL TUNNELS. BILATERAL CATARACTS. RIGHT TOTAL KNEE REPLACEMENT. LEFT ROTATOR CUFF AND BICEP REPAIR. Cardiac cath- RCA, LAD, CIRC. 05/13/2021. Past Anesthesia/Blood Transfusion Reactions: No Reported Reaction Date of Last Stent Placement:: 05/11/2021 Past Psychological History: Depression Smoking Status: Former smoker Past Alcohol Use History: None Reported Past Drug Use History: None Reported Medications and Allergies Home Medications Medication Instructions Recorded Confirmed Type Bimatoprost [Lumigan 0.01% Ophth 1 drop BOTH EYES HS 06/07/21 07/05/22 History Soln] Bumetanide [Bumex] 1 mg PO BID@0600,1600 06/07/21 07/05/22 History DULoxetine HCL [Cymbalta] 60 mg PO HS 06/07/21 07/05/22 History Ergocalciferol [Vitamin D2 (1250 1,250 mcg PO Q14D 06/07/21 07/05/22 History Mcg = 14522 Iu)] Gabapentin [Neurontin] 100 mg PO TID 06/07/21 07/05/22 History INSULIN LISPRO (humaLOG) [humaLOG] 7 units SQ AC-TID 06/07/21 07/05/22 History Insulin Glargine,Hum.rec.anlog 50 units SQ HS 06/07/21 07/05/22 History [Toueryn Solostar] Isosorbide Mononitrate ER [Imdur] 60 mg PO DAILY 06/07/21 07/05/22 History Nitroglycerin 0.4 mg SUBLINGUAL Q5M PRN 06/07/21 07/05/22 History Potassium Chloride ER [K-Dur 20] 20 meq PO MOWEFR 06/07/21 07/05/22 History Timolol [Betimol 0.5% Ophth Soln] 1 drop RIGHT EYE BID 06/07/21 07/05/22 History oxyCODONE-APAP 10-325MG [Percocet 1 tab PO Q6H PRN 06/07/21 07/05/22 History 10-325 mg] calcitrioL [Calcitriol] 0.25 mcg PO MOFR 04/04/22 07/05/22 History Cyanocobalamin (Vitamin B-12) 1,000 mcg PO DAILY 07/05/22 07/05/22 History [Vitamin B-12] Pantoprazole Sodium [Protonix] 40 mg PO AC-BID 07/05/22 07/05/22 History Rosuvastatin Calcium 5 mg PO DAILY 07/05/22 07/05/22 History carvediloL [Coreg] 3.125 mg PO BID 07/05/22 07/05/22 History Allergies Allergy/AdvReac Type Severity Reaction Status Date / Time levofloxacin Allergy Unknown Verified 07/05/22 16:25 Penicillins Allergy Rash/Hives Verified 07/05/22 16:25 pistachio nut Allergy Dyspnea Verified 07/05/22 16:25 Flghady-ZAO-FnT Reductase Allergy Unknown Verified 07/05/22 16:25 Inhibitor Sulfa (Sulfonamide Allergy Rash/Hives Verified 07/05/22 16:25 Antibiotics) Physical Exam Vitals: Vital Signs Temp Pulse Pulse Resp BP BP Pulse Ox 07/06/22 07:05 98.7 F 63 16 127/66 93 L 07/06/22 01:43 98.4 F 84 18 125/69 88 L 07/05/22 22:15 98.2 F 70 18 163/70 96 07/05/22 20:00 96.6 F L 70 16 165/66 95 07/05/22 19:05 98.7 F 65 17 165/74 95 07/05/22 18:12 97.7 F 72 16 145/61 95 07/05/22 17:05 97.9 F 65 18 158/69 98 07/05/22 16:15 98.0 F 66 17 160/73 99 07/05/22 15:02 80 07/05/22 13:40 97.7 F 69 20 116/52 100 Intake and Output 07/05/22 07/06/22 07/06/22 22:59 06:59 14:59 Output Total 200 Balance -200 Output: Urine 200 Other: Voiding Method Toilet # Voids 3 Weight 90.718 kg 93.3 kg General appearance: The patient is alert, oriented, appears in no acute distress. HET: Head is normocephalic and atraumatic. Conjunctiva pink. Sclera anicteric. Neck: Supple without lymphadenopathy. Trachea midline. Heart: S1 S2. Regular rate and rhythm. Lungs: Clear to auscultation. Abdomen: Soft, nontender, nondistended with bowel sounds. No guarding or rigidity. Skin: No rashes. No jaundice. Extremities: Normal skin color and turgor. No pedal edema. Neurological: No focal deficits. Alert and oriented x3. Results CBC & Chem 7: 07/06/22 05:17 07/05/22 14:50 Labs: Abnormal Lab Results - Last 24 Hours (Table) 07/05/22 07/05/22 07/05/22 Range/Units 14:50 14:50 14:50 RBC 2.29 L (3.80-5.40) m/uL Hgb 7.2 L (11.4-16.0) gm/dL Hct 22.8 L (34.0-46.0) % MCV (80.0-100.0) fL RDW 17.0 H (11.5-15.5) % APTT 20.4 L (22.0-30.0) sec BUN 23 H (7-17) mg/dL Creatinine 1.94 H (0.52-1.04) mg/dL POC Glucose (mg/dL) (70-110) mg/dL Calcium 8.1 L (8.4-10.2) mg/dL Stool Occult Blood (Negative) 07/05/22 07/05/22 07/05/22 Range/Units 15:02 18:35 21:31 RBC (3.80-5.40) m/uL Hgb (11.4-16.0) gm/dL Hct (34.0-46.0) % MCV (80.0-100.0) fL RDW (11.5-15.5) % APTT (22.0-30.0) sec BUN (7-17) mg/dL Creatinine (0.52-1.04) mg/dL POC Glucose (mg/dL) 68 L 128 H (70-110) mg/dL Calcium (8.4-10.2) mg/dL Stool Occult Blood Positive H (Negative) 07/06/22 07/06/22 Range/Units 05:17 05:53 RBC 2.23 L (3.80-5.40) m/uL Hgb 7.1 L (11.4-16.0) gm/dL Hct 22.9 L (34.0-46.0) % MCV 102.5 H (80.0-100.0) fL RDW 17.2 H (11.5-15.5) % APTT (22.0-30.0) sec BUN (7-17) mg/dL Creatinine (0.52-1.04) mg/dL POC Glucose (mg/dL) 192 H (70-110) mg/dL Calcium (8.4-10.2) mg/dL Stool Occult Blood (Negative) Assessment and Plan (1) GI bleed Narrative/Plan: 77-year-old female history coronary artery disease who had previously been on Plavix and Coumadin for cardiac stents and atrial fibrillation was seen a little over a week ago at a outside hospital for concerns for GI bleed. At that time she had been reporting dark bloody stools and was noted to be anemic. She was given a unit of blood and underwent EGD colonoscopy with Dr. Espinoza. She had outpatient blood work and her physician and told her to come to the emergency department due to low hemoglobin. She continues to have symptomatic anemia and black tarry stools. Noted to have a hemoglobin of 7.1 on admission. Concerns for small bowel bleed noted and patient's discharge paperwork. We'll proceed with small bowel capsule endoscopy. Further recommendations forthcoming based on study findings. Current Visit: Yes Status: Acute Code(s): K92.2 - GASTROINTESTINAL HEMORRHAGE, UNSPECIFIED SNOMED Code(s): 43309645 (2) Coronary artery disease Current Visit: Yes Status: Acute Code(s): I25.10 - ATHSCL HEART DISEASE OF [place] CORONARY ARTERY W/O ANG PCTRS SNOMED Code(s): 87533338 (3) Symptomatic anemia Current Visit: Yes Status: Acute Code(s): D64.9 - ANEMIA, UNSPECIFIED SNOMED Code(s): 846187093 (4) Type 2 diabetes mellitus Current Visit: Yes Status: Acute Code(s): E11.9 - TYPE 2 DIABETES MELLITUS WITHOUT COMPLICATIONS SNOMED Code(s): 36569664 Plan: 1. Continue symptomatic and supportive care 2. Keep nothing by mouth other than magnesium citrate. May have clear liquid diet 2 hours post start of small bowel capsule study 3. M and just keepagnesium citrate ordered 4. Continue to hold anticoagulation/antiplatelet 5. Patient will undergo small bowel video capsule endoscopy this afternoon 6. Further recommendations forthcoming based on findings Thank you for this consultation, we will continue to follow. Dr. Slim Dyer I agree with the dictator's note, documented as a scribe by Iza Molina.
[2022-07-06] MEDS ORDERED: FUROSEMIDE 10 MG/ML 2 ML VIAL IV ONE ×2 (10:30→15:30)
[2022-07-06 11:24] LABS: Glucose,Whole Blood 185 mg/dL (70-110)
[2022-07-06] MEDS ORDERED: SIMETHICONE 40 MG/0.6 ML DROPS 2,000 MG/30 ML BOTTLE PO ONE (12:26)
--- NOTE | 2022-07-06 12:47 | HP ---
HISTORY AND PHYSICAL CHIEF COMPLAINT: History of GI bleed. HISTORY OF PRESENT ILLNESS: This is a 77-year-old woman with a past medical history of multiple medical problems including CAD, diabetes mellitus, GERD, being followed by Dr. Chet Ndiaye. The patient was recently admitted to [facility] for GI bleed. Dr. Granados performed EGD colonoscopy. Colonoscopy apparently showed some polyps. The patient is now admitted to [facility] with complaints of rectal bleeding. Hemoglobin was found to be 7.1, previously it was 7.8. There is no history of any fever, rigors, or chills. Gastroenterology is following the patient, planning a capsule endoscopy. PAST MEDICAL HISTORY: Reviewed include CAD, recent history of GI bleed, rest of the history and rest of the chart is also reviewed. HOME MEDICATIONS: Reviewed include oxycodone, dose and rest of medications noted. ALLERGIES: Reviewed include penicillin. FAMILY HISTORY: No history of heart disease or strokes in the family. SOCIAL HISTORY: Previous history of smoking. REVIEW OF SYSTEMS: A 14-point review is negative except as mentioned earlier. PHYSICAL EXAMINATION: VITAL SIGNS: Pulse 63, blood pressure 110/69, respirations 16. HEENT: Conjunctivae normal. NECK: No jugular venous distention. CARDIOVASCULAR: S1, S2 muffled. RESPIRATIONS: Diminished at the bases. No rhonchi, no crackles. ABDOMEN: Soft, nontender. No masses palpable. LEGS: No edema, no swelling. NERVOUS SYSTEM: No focal deficit. SKIN: No ulcer, rash, bleeding. JOINTS: No active deforming arthropathy. LABORATORY DATA: Hemoglobin 7.1, labs are noted. ASSESSMENT AND PLAN: 1. GI bleed with acute blood loss anemia with acute on chronic GI bleed, history of recent colonoscopy showing colonic polyps. 2. History of coronary artery disease. 3. History of DJD. 4. History of chronic back pain. RECOMMENDATIONS AND DISCUSSION: This 77-year-old woman presented with multiple complex medical issues, we will monitor the patient closely, continue the current medications, monitor the patient closely. I would recommend 1 unit transfusion. GI consultation, capsule endoscopy. Hold antiplatelet agents for now. Otherwise, guarded prognosis because of multiple complex medical issues. Further recommendations to follow. Home medication will be resumed once they are confirmed. MMODL / IJN: [id number] /
[2022-07-06 16:19] LABS: Glucose,Whole Blood 184 mg/dL (70-110)
[2022-07-06] MEDS ORDERED: POTASSIUM CHLORIDE ER 20 MEQ TAB.ER PO SCH (17:20)
[2022-07-06 19:23] LABS: Glucose,Whole Blood 198 mg/dL (70-110)
[2022-07-06] MEDS: INSULIN DETEMIR (LEVEMIR) 100 UNIT/ML SYR SQ SCH (21:33)
[2022-07-06] MEDS: DULoxetine HCL 60 MG CAPSULE.DR PO SCH (21:33)
[2022-07-06] MEDS: LATANOPROST 0.005% OPHTH DROPS 2.5 ML BTL BOTH EYES SCH (21:38)
[2022-07-07] MEDS: oxyCODONE-APAP 10-325MG 1 EACH TAB PO PRN ×2 (01:19→15:43)
[2022-07-07 05:59] LABS: Glucose,Whole Blood 110 mg/dL (70-110)
[2022-07-07] MEDS: DEXTROSE 5%-0.9% NACL 1,000 ML IV SCH (06:02)
[2022-07-07] MEDS: PANTOPRAZOLE 40 MG TABLET PO SCH (06:59)
[2022-07-07] MEDS: BUMETANIDE 1 MG TAB PO SCH ×2 (06:59→15:43)
[2022-07-07] MEDS: INSULIN ASPART (NovoLOG) 100 UNIT/ML VIAL SQ SCH ×3 (07:06→16:57)
[2022-07-07] MEDS: ATORVASTATIN 10 MG TAB PO SCH (08:13)
[2022-07-07] MEDS: CYANOCOBALAMIN 500 MCG TAB PO SCH (08:13)
[2022-07-07] MEDS: GABAPENTIN 100 MG CAP PO SCH ×2 (08:13→15:43)
[2022-07-07] MEDS: ISOSORBIDE MONONITRATE ER 60 MG TAB.ER.24H PO SCH (08:13)
[2022-07-07] MEDS: carvediloL 3.125 MG TAB PO SCH (08:13)
[2022-07-07] MEDS: TIMOLOL 0.5% OPHTH DROPS 5 ML BTL RIGHT EYE SCH (08:14)
[2022-07-07 10:01] LABS: HCT 23.9 % (37.2-46.3); HGB 7.1 g/dL (12.0-15.0); MCH 29.7 pg (27.0-32.0); MCHC 29.7 g/dL (32.0-37.0); Mean Platelet Volume 10.1 fL (9.5-12.2); NRBC Per 100 WBC 0 /100 WBCS (0.0-0.0); Platelet Count 232 X 10*3/uL (140-440); RBC 2.39 X 10*6/uL (4.10-5.20); RDW 18.5 % (11.5-14.5); WBC 7.35 X 10*3/uL (4.50-10.00)
[2022-07-07 10:34] LABS: African American GFR (CKD) 30.7 (60.0-200.0); BUN/Creat Ratio 9.61 Ratio (12.00-20.00); Blood Urea Nitrogen 17.3 mg/dL (9.0-27.0); Calcium 8.4 mg/dL (8.7-10.3); Non-African American GFR(CKD) 26.5 (60.0-200.0); Potassium 4.2 mmol/L (3.5-5.5)
[2022-07-07 11:08] LABS: Glucose,Whole Blood 103 mg/dL (70-110)
--- NOTE | 2022-07-07 12:20 | P.PN ---
Subjective Progress Note Date: 07/07/22 Principal diagnosis: GI bleed This pleasant 77-year-old female with a past medical history including diabetes mellitus, hypertension, hyperlipidemia, coronary artery disease who was previously on Plavix and Coumadin. Patient presented to the emergency department as directed by her primary care physician for low hemoglobin. Patient states she's been feeling weak and fatigued. Was recently hospitalized at [facility] June 25 through 06/28/2022 for GI bleed. States she had been having dark bloody and black stool. She had a significant drop in her hemoglobin and was given 1 unit of blood as well as was seen by general surgery Dr. Espinoza and underwent EGD and colonoscopy. EGD with findings of a nonbleeding gastric ulcer, nonbleeding peptic ulcer, and antral gastritis. Colonoscopy with findings of diverticulosis and internal hemorrhoid. Patient al so had a screening colonoscopy on 04/29/[address] Dyer that showed scattered diverticulosis without any neoplasia. Patient has not taken any anticoagulation or Plavix since 06/22/2022. She denies NSAID use. Patient states she had 2 black tarry stools this week. She states she has a history of constipation and irregular bowel movements. States she usually has a bowel movement every 3-4 days. She is denying any abdominal pain at this time however states during her last hospitalization she had abdominal discomfort more on the lateral sides of her abdomen and some in the upper abdomen. She denies any nausea or vomiting, no fevers or chills. Denies chest pain or shortness of breath. Today's labs WBC 5.9 hemoglobin 7.1 hematocrit 22 platelet count 295,000 INR 0.9 sodium 138 potassium 4.3 BUN 23 creatinine 1.9 total bilirubin 0.6 AST 32 ALT 16 alkaline phosphatase 50. Stool occult blood positive 07/07/2022: Patient was seen and examined today as a follow-up. Yesterday she underwent small bowel capsule endoscopy. She states she's had some loose stool following her magnesium citrate which were still dark. She received 1 unit of blood yesterday afternoon. She states she was feeling pretty good until she ate this morning and then she felt very tired. Repeat hemoglobin today 7.1. She denies any abdominal pain, nausea vomiting. Small bowel video capsule endoscopy revealed active bleeding in the distal small bowel/jejunum and proximal ileum. Objective - Vital Signs Vital signs: Vital Signs Temp 98.6 F 07/07/22 07:10 Pulse 71 07/07/22 07:10 Resp 16 07/07/22 07:10 BP 152/62 07/07/22 07:10 Pulse Ox 96 07/07/22 07:10 FiO2 Intake & Output 07/06/22 07/07/22 07/07/22 18:59 06:59 18:59 Intake Total 310 Balance 310 Intake: Blood Product 310 Rc As-1 Unit 310 [id number] Other: Voiding Method Toilet # Voids 1 2 - Exam General appearance: The patient is alert, oriented, appears in no acute distress. HET: Head is normocephalic and atraumatic. Conjunctiva pink. Sclera anicteric. Neck: Supple without lymphadenopathy. Abdomen: Soft, nontender, nondistended with bowel sounds. No guarding or rigidity. Extremities: Normal skin color and turgor. No pedal edema Skin: No rashes, no jaundice Neurological: No focal deficits. Alert and oriented. - Labs CBC & Chem 7: 07/07/22 03:58 07/07/22 03:58 Labs: Abnormal Lab Results - Last 24 Hours (Table) 07/05/22 07/06/22 07/06/22 Range/Units 14:50 16:18 19:22 RBC (4.10-5.20) X 10*6/uL Hgb (12.0-15.0) g/dL Hct (37.2-46.3) % MCV (80.0-97.0) fL MCHC (32.0-37.0) g/dL RDW (11.5-14.5) % Carbon Dioxide (20.0-27.5) mmol/L Anion Gap (10.00-18.00) mmol/L Creatinine (0.6-1.5) mg/dL Est GFR (CKD-EPI)AfAm (60.0-200.0) Est GFR (CKD-EPI)NonAf (60.0-200.0) BUN/Creatinine Ratio (12.00-20.00) Ratio POC Glucose (mg/dL) 184 H 198 H (70-110) mg/dL Calcium (8.7-10.3) mg/dL Crossmatch See Detail 07/07/22 07/07/22 Range/Units 03:58 03:58 RBC 2.39 L (4.10-5.20) X 10*6/uL Hgb 7.1 L (12.0-15.0) g/dL Hct 23.9 L (37.2-46.3) % MCV 100.0 H (80.0-97.0) fL MCHC 29.7 L (32.0-37.0) g/dL RDW 18.5 H (11.5-14.5) % Carbon Dioxide 28.0 H (20.0-27.5) mmol/L Anion Gap 9.00 L (10.00-18.00) mmol/L Creatinine 1.8 H (0.6-1.5) mg/dL Est GFR (CKD-EPI)AfAm 30.7 L (60.0-200.0) Est GFR (CKD-EPI)NonAf 26.5 L (60.0-200.0) BUN/Creatinine Ratio 9.61 L (12.00-20.00) Ratio POC Glucose (mg/dL) (70-110) mg/dL Calcium 8.4 L (8.7-10.3) mg/dL Crossmatch Assessment and Plan (1) GI bleed Narrative/Plan: 77-year-old female history coronary artery disease who had previously been on Plavix and Coumadin for cardiac stents and atrial fibrillation was seen a little over a week ago at a outside hospital for concerns for GI bleed. At that time she had been reporting dark bloody stools and was noted to be anemic. She was given a unit of blood and underwent EGD colonoscopy with Dr. Espinoza. She had outpatient blood work and her physician and told her to come to the emergency department due to low hemoglobin. She continues to have symptomatic anemia and black tarry stools. Noted to have a hemoglobin of 7.1 on admission. Concerns for small bowel bleed noted and patient's discharge paperwork. We'll proceed with small bowel capsule endoscopy. Further recommendations forthcoming based on study findings. Small bowel video capsule endoscopy with active bleeding in the distal small bowel/jejunum, proximal ileum. Recommend transfer to tertiary center for advanced gastroenterology services and possible CT angiogram with interventional radiology for embolization. Will transfuse 1 unit, continue to hold any anticoagulation. Current Visit: Yes Status: Acute Code(s): K92.2 - GASTROINTESTINAL HEMORRHAGE, UNSPECIFIED SNOMED Code(s): 63170403 (2) Coronary artery disease Current Visit: Yes Status: Acute Code(s): I25.10 - ATHSCL HEART DISEASE OF [place] CORONARY ARTERY W/O ANG PCTRS SNOMED Code(s): 81517671 (3) Symptomatic anemia Current Visit: Yes Status: Acute Code(s): D64.9 - ANEMIA, UNSPECIFIED SNOMED Code(s): 772871567 (4) Type 2 diabetes mellitus Current Visit: Yes Status: Acute Code(s): E11.9 - TYPE 2 DIABETES MELLITUS WITHOUT COMPLICATIONS SNOMED Code(s): 63022567 Plan: 1. Continue symptomatic and supportive care 2. Clear liquid diet 3. Daily CBC, transfuse for hemoglobin less than 7 4. Transfuse 1 unit of blood 5. Continue to hold anticoagulation 6. Patient is status post small bowel video capsule endoscopy with active bleeding in the distal small bowel. Discussed with primary medicine recommend transfer to tertiary center with advanced gastroenterology and interventional radiology for possible embolization. Patient agreeable for transfer. Thank you for this consultation, we will continue to follow. Dr. Slim Dyer I agree with the dictator's note, documented as a scribe by Iza Molina.
[2022-07-07 13:53] VITALS: RESP 16
[2022-07-07] MEDS ORDERED: FUROSEMIDE 10 MG/ML 2 ML VIAL IV ONE (14:22)
--- NOTE | 2022-07-07 14:32 | P.DS ---
Providers Date of admission: 07/06/22 10:30 Expected date of discharge: 07/07/22 Attending physician: Malia Whatley Consults: 07/05/22 16:54 Consult Physician Routine Consulting Provider: Waleska Dyer Consult Reason/Comments: GI bleed Do you want consulting provider notified?: Already Contacted Primary care physician: Chet Senthil [facility] Course: Final diagnosis GI bleed with acute blood loss anemia with acute on chronic GI bleed, history of recent colonoscopy showing colonic polyps, internal hemorrhoid Status post small bowel capsule study showing active bleeding in the distal small bowel/jejunum and proximal ileum History of coronary artery disease history of degenerative joint disease History of chronic back pain Diabetes mellitus, type II, insulin-dependent History of heart failure, unknown EF GERD Chronic renal disease History of depression GI prophylaxis DVT prophylaxis Full code Discharge disposition Patient is being transferred in a stable condition with guarded prognosis to [facility]. Patient has been accepted by Dr. Castelan and will be evaluated by GI with interventional radiology. Patient will follow-up with Dr. Ndiaye in the outpatient setting upon discharge. Patient is to currently to continue holding Plavix and Coumadin. Total time taken is greater than 35 minutes. Hospital course This is a 77-year-old female who was recently admitted with lower abdominal pain dark stools and GI bleed. Patient recently was at [facility] and discharged after surgery evaluated and underwent EGD/colonoscopy showing gastritis with duodenal ulcer nonbleeding and had been instructed to hold Coumadin and Plavix. Patient was having repeat labs and a follow-up for low hemoglobin and sent to the hospital for further evaluation. Hemoglobin was 7.1 and received 1 unit of PRBCs yesterday. Patient underwent small Bowel Study Showing an Active Distal Small Bowel Bleed at the Proximal Ileum and GI Dr. Dyer agreeable and recommending transfer to tertiary treatment center for possible interventional radiology embolization with advanced GI services. Transfer team was contacted and transfer was initiated for [facility] and accepted by Dr. Castelan. Currently awaiting a bed assignment. Patient's hemoglobin today is 7.1 again and currently receiving a unit of PRBC and will follow-up on repeat he moglobin and will continue to monitor closely and transfuse. Patients vitals are currently stable and patient does have some dull aching although denies pain at this time. Patient is maintained on IV Protonix twice daily and will continue with close monitoring of hemoglobin. Currently no reports of chest pain, shortness of breath, or palpitations. Patient is afebrile. No reports of nausea or vomiting and patient is tolerating clear liquid diet. Patient will be transferred to [facility] once a bed becomes available. Transfer team will contact unit when a bed is available. Physical exam: Gen: This is a 77-year-old female who is awake, alert and oriented 3, well- developed, well-nourished, obese HEENT: Head is atraumatic, normocephalic. Pupils equal, round. Sclerae is a nicteric. NECK: Supple. No JVD. No lymphadenopathy. No thyromegaly. LUNGS: Clear to auscultation. No wheezes or rhonchi. No intercostal retractions. HEART: S1, S2 are muffled ABDOMEN: Soft. Bowel sounds are present. No masses. No tenderness. EXTREMITIES: No pedal edema. No calf tenderness. NEUROLOGICAL: Patient is awake, alert and oriented x3. Cranial nerves 2 through 12 are grossly intact. Please refer to medication reconciliation sheet for a list of medications. The impression and plan of care has been dictated by Alina Frausto, Nurse Practitioner as directed. Dr. Chacorta MD I have performed a history and examination and MDM of this patient, discussed the same with the dictator, and agree with the dictator's assessment and plan as written ,documented as a scribe. Based on total visit time, I have performed more than 50% of the visit. Patient Condition at Discharge: Stable Plan - Discharge Summary Discharge Rx Participant: No New Discharge Prescriptions: No Action Insulin Glargine,Hum.rec.anlog [Toubarbrao Solostar] 50 units SQ HS INSULIN LISPRO (humaLOG) [humaLOG] 7 units SQ AC-TID oxyCODONE-APAP 10-325MG [Percocet 10-325 mg] 1 tab PO Q6H PRN PRN Reason: Pain Potassium Chloride ER [K-Dur 20] 20 meq PO MOWEFR DULoxetine HCL [Cymbalta] 60 mg PO HS calcitrioL [Calcitriol] 0.25 mcg PO MOFR carvediloL [Coreg] 3.125 mg PO BID Cyanocobalamin (Vitamin B-12) [Vitamin B-12] 1,000 mcg PO DAILY Nitroglycerin 0.4 mg SUBLINGUAL Q5M PRN PRN Reason: Chest Pain Gabapentin [Neurontin] 100 mg PO TID Ergocalciferol [Vitamin D2 (1250 Mcg = 47210 Iu)] 1,250 mcg PO Q14D Isosorbide Mononitrate ER [Imdur] 60 mg PO DAILY Bumetanide [Bumex] 1 mg PO BID@0600,1600 Timolol [Betimol 0.5% Ophth Soln] 1 drop RIGHT EYE BID Bimatoprost [Lumigan 0.01% Ophth Soln] 1 drop BOTH EYES HS Rosuvastatin Calcium 5 mg PO DAILY Pantoprazole Sodium [Protonix] 40 mg PO AC-BID Discharge Medication List Bimatoprost [Lumigan 0.01% Ophth Soln] 1 drop BOTH EYES HS 06/07/21 [History] Bumetanide [Bumex] 1 mg PO BID@0600,1600 06/07/21 [History] DULoxetine HCL [Cymbalta] 60 mg PO HS 06/07/21 [History] Ergocalciferol [Vitamin D2 (1250 Mcg = 32012 Iu)] 1,250 mcg PO Q14D 06/07/21 [History] Gabapentin [Neurontin] 100 mg PO TID 06/07/21 [History] INSULIN LISPRO (humaLOG) [humaLOG] 7 units SQ AC-TID 06/07/21 [History] Insulin Glargine,Hum.rec.anlog [Toujeo Solostar] 50 units SQ HS 06/07/21 [History] Isosorbide Mononitrate ER [Imdur] 60 mg PO DAILY 06/07/21 [History] Nitroglycerin 0.4 mg SUBLINGUAL Q5M PRN 06/07/21 [History] Potassium Chloride ER [K-Dur 20] 20 meq PO MOWEFR 06/07/21 [History] Timolol [Betimol 0.5% Ophth Soln] 1 drop RIGHT EYE BID 06/07/21 [History] oxyCODONE-APAP 10-325MG [Percocet 10-325 mg] 1 tab PO Q6H PRN 06/07/21 [History] calcitrioL [Calcitriol] 0.25 mcg PO MOFR 04/04/22 [History] Cyanocobalamin (Vitamin B-12) [Vitamin B-12] 1,000 mcg PO DAILY 07/05/22 [History] Pantoprazole Sodium [Protonix] 40 mg PO AC-BID 07/05/22 [History] Rosuvastatin Calcium 5 mg PO DAILY 07/05/22 [History] carvediloL [Coreg] 3.125 mg PO BID 07/05/22 [History] Follow up Appointment(s)/Referral(s): Chet Ndiaye DO [Primary Care Provider] - 07/14/22 1:30 pm Discharge Disposition: OTHER INSTITUTION NOT DEFINED
[2022-07-07 15:47] VITALS: BP 171/70; PULSE 68; TEMP 98
[2022-07-07 16:16] LABS: Glucose,Whole Blood 181 mg/dL (70-110)
[2022-07-07 17:02] LABS: Anisocytosis Slight; Basophils % (A) 1 %; Eosinophils # (A) 0.2 k/uL (0-0.7); Eosinophils % (A) 3 %; HCT 28.5 % (34.0-46.0); Hypochromasia Moderate; Lymphocytes # (A) 1.2 k/uL (1.0-4.8); Lymphocytes % (A) 18 %; MCH 30.5 pg (25.0-35.0); MCHC 32.1 g/dL (31.0-37.0); Macrocytosis Slight; Mean Platelet Volume 8.8; Monocytes # (A) 0.5 k/uL (0-1.0); Monocytes % (A) 7 %; Neutrophils # (A) 4.8 k/uL (1.3-7.7); Neutrophils % (A) 70 %; Platelet Count 282 k/uL (150-450); Poikilocytosis Slight; RBC 3.01 m/uL (3.80-5.40); RDW 16.9 % (11.5-15.5); WBC 6.9 k/uL (3.8-10.6)
[2022-07-07 17:04] LABS: HGB 9.2 gm/dL (11.4-16.0)
[2022-07-07] MEDS ORDERED: PANTOPRAZOLE 40 MG/10 ML VIAL IVP SCH (21:00)
== END 2022-07-07 18:51 | disposition short-term general hospital (02) | DRG 378 ==
LOC: EC 13:24 → 4SSUR 17:42 → OBSVTOIN 07-06 10:30
PROVIDERS: ADMIT Hospitalist; ATTEND Hospitalist
PROC: 30233N1 Transfusion of Nonautologous Red Blood Cells into Peripheral Vein, Percutaneous Approach (ICD-10-PCS; 2022-07-06)
PROC: 0DJ07ZZ Inspection of Upper Intestinal Tract, Via Natural or Artificial Opening (ICD-10-PCS; principal; 2022-07-07)
DX: K92.2 Gastrointestinal hemorrhage, unspecified (principal); D62 Acute posthemorrhagic anemia; I13.0 Hypertensive heart and chronic kidney disease with heart failure and stage 1 through stage 4 chronic kidney disease, or unspecified chronic kidney disease; I50.9 Heart failure, unspecified; E11.22 Type 2 diabetes mellitus with diabetic chronic kidney disease; F32.A Depression, unspecified; K92.1 Melena; N18.9 Chronic kidney disease, unspecified; G89.29 Other chronic pain; I25.10 Atherosclerotic heart disease of native coronary artery without angina pectoris; K21.9 Gastro-esophageal reflux disease without esophagitis; M19.90 Unspecified osteoarthritis, unspecified site; K59.00 Constipation, unspecified; I48.91 Unspecified atrial fibrillation; E78.5 Hyperlipidemia, unspecified; K64.8 Other hemorrhoids; K63.5 Polyp of colon; M54.9 Dorsalgia, unspecified; Z96.653 Presence of artificial knee joint, bilateral; Z87.891 Personal history of nicotine dependence; I25.2 Old myocardial infarction; Z88.2 Allergy status to sulfonamides; Z88.0 Allergy status to penicillin; Z91.018 Allergy to other foods; Z88.8 Allergy status to other drugs, medicaments and biological substances; Z79.899 Other long term (current) drug therapy; Z79.4 Long term (current) use of insulin; Z79.891 Long term (current) use of opiate analgesic; Z87.19 Personal history of other diseases of the digestive system; Z95.5 Presence of coronary angioplasty implant and graft
CPT/HCPCS: 36415; 80048; 80053; 82272; 85025; 85027; 85610; 85730; 86850; 86900; 86901; 86920; 87635; 91110; 96361; 96374; 99285

== ENCOUNTER 2023-03-21 13:02 | Inpatient (IN) | payer MEDICARE ==
--- NOTE | 2023-03-21 13:53 | ED ---
General Adult HPI - General Chief complaint: Weakness Stated complaint: SOB weakness Time Seen by Provider: 03/21/23 13:25 Source: patient, family, RN notes reviewed, old records reviewed Mode of arrival: wheelchair Limitations: no limitations - History of Present Illness Initial comments: This is a 77-year-old female who presents to the emergency department complaining of generalized weakness and shortness of breath. Patient states she was just released from [facility] yesterday he she was admitted there overnight for lip cellulitis as well as a urinary tract infection. Patient is currently on antibiotics for urinary tract infection. Patient is so weak it is hard for her to even get up and help her daughter move her around. Patient states she is much more short of breath with any exertion. Patient denies any chest pain or palpitations. Patient has abdominal pain patient is nausea vomiting diarrhea. Patient denies any headache patient has numbness weakness - Related Data Home Medications Medication Instructions Recorded Confirmed Bimatoprost [Lumigan 0.01% Ophth 1 drop BOTH EYES HS 06/07/21 07/05/22 Soln] Bumetanide [Bumex] 1 mg PO BID@0600,1600 06/07/21 07/05/22 DULoxetine HCL [Cymbalta] 60 mg PO HS 06/07/21 07/05/22 Ergocalciferol [Vitamin D2 (1250 1,250 mcg PO Q14D 06/07/21 07/05/22 Mcg = 16775 Iu)] Gabapentin [Neurontin] 100 mg PO TID 06/07/21 07/05/22 INSULIN LISPRO (humaLOG) [humaLOG] 7 units SQ AC-TID 06/07/21 07/05/22 Insulin Glargine,Hum.rec.anlog 50 units SQ HS 06/07/21 07/05/22 [Peri Goinsostjeanna] Isosorbide Mononitrate ER [Imdur] 60 mg PO DAILY 06/07/21 07/05/22 Nitroglycerin 0.4 mg SUBLINGUAL Q5M PRN 06/07/21 07/05/22 Potassium Chloride ER [K-Dur 20] 20 meq PO MOWEFR 06/07/21 07/05/22 Timolol [Betimol 0.5% Ophth Soln] 1 drop RIGHT EYE BID 06/07/21 07/05/22 oxyCODONE-APAP 10-325MG [Percocet 1 tab PO Q6H PRN 06/07/21 07/05/22 10-325 mg] calcitrioL [Calcitriol] 0.25 mcg PO MOFR 04/04/22 07/05/22 Cyanocobalamin (Vitamin B-12) 1,000 mcg PO DAILY 07/05/22 07/05/22 [Vitamin B-12] Pantoprazole Sodium [Protonix] 40 mg PO AC-BID 07/05/22 07/05/22 Rosuvastatin Calcium 5 mg PO DAILY 07/05/22 07/05/22 carvediloL [Coreg] 3.125 mg PO BID 07/05/22 07/05/22 Allergies Allergy/AdvReac Type Severity Reaction Status Date / Time levofloxacin Allergy Unknown Verified 03/21/23 13:09 Penicillins Allergy Rash/Hives Verified 03/21/23 13:09 pistachio nut Allergy Dyspnea Verified 03/21/23 13:09 Imimcie-XJO-ZeC Reductase Allergy Unknown Verified 03/21/23 13:09 Inhibitor Sulfa (Sulfonamide Allergy Rash/Hives Verified 03/21/23 13:09 Antibiotics) Review of Systems ROS Statement: Those systems with pertinent positive or pertinent negative responses have been documented in the HPI. ROS Other: All systems not noted in ROS Statement are negative. Past Medical History Past Medical History: Coronary Artery Disease (CAD), Heart Failure, Diabetes Mellitus, GERD/Reflux, GI Bleed, Myocardial Infarction (VA), Osteoarthritis (OA), Renal Disease Additional Past Medical History / Comment(s): CHRONIC BACK PAIN. Type 2 Diabetes, VA 05/18 Last Myocardial Infarction Date:: 05/11/2021 History of Any Multi-Drug Resistant Organisms: None Reported Past Surgical History: Back Surgery, Heart Catheterization With Stent, Hernia Repair, Joint Replacement, Orthopedic Surgery Additional Past Surgical History / Comment(s): L3-S1 LAMI WITH HARDWARE. RIGHT THORACIC STEAL. LEFT HEEL SPUR. RIGHT BAKERS CYST. BILATERAL KNEE ARTHROSCOPIES. LEFT TKA. RIGHT ACHILLES TENDON REPAIR. BILATERAL CARPAL TUNNELS. BILATERAL CATARACTS. RIGHT TOTAL KNEE REPLACEMENT. LEFT ROTATOR CUFF AND BICEP REPAIR. Cardiac cath- RCA, LAD, CIRC. 05/13/2021. Past Anesthesia/Blood Transfusion Reactions: No Reported Reaction Date of Last Stent Placement:: 05/11/2021 Past Psychological History: Depression Smoking Status: Former smoker Past Alcohol Use History: None Reported Past Drug Use History: None Reported General Exam - General Exam Comments Initial Comments: GENERAL: Patient is well-developed and well-nourished. Patient is nontoxic and well-hydr ated and is in mild distress. ENT: Neck is soft and supple. No significant lymphadenopathy is noted. Oropharynx is clear. Moist mucous membranes. Neck has full range of motion without eliciting any pain. EYES: The sclera were anicteric and conjunctiva were pink and moist. Extraocular movements were intact and pupils were equal round and reactive to light. Eyelids were unremarkable. PULMONARY: Unlabored respirations. Good breath sounds bilaterally. Patient has crackles in the bases bilaterally CARDIOVASCULAR: There is a regular rate and rhythm without any murmurs gallops or rubs. ABDOMEN: Soft and nontender with normal bowel sounds. No palpable organomegaly was noted. There is no palpable pulsatile mass. SKIN: Skin is clear with no lesions or rashes and otherwise unremarkable. NEUROLOGIC: Patient is alert and oriented x3. Cranial nerves II through XII are grossly int act. Motor and sensory are also intact. Normal speech, volume and content. Symmetrical smile. MUSCULOSKELETAL: Normal extremities with adequate strength and full range of motion. LYMPHATICS: No significant lymphadenopathy is noted PSYCHIATRIC: Normal psychiatric evaluation. Limitations: no limitations Course Vital Signs 03/21/23 13:09 Temperature 97.4 F L Pulse Rate 104 H Respiratory 18 Rate Blood Pressure 153/78 O2 Sat by Pulse 96 Oximetry Medical Decision Making - Medical Decision Making EKG as interpreted by myself EKG shows atrial fibrillation at 88 bpm QRS 95 QT interval 374 QTc is 420. Patient's EKG shows no ST segment ovation or depression. Was pt. sent in by a medical professional or institution (, PA, COMPUTER REPAIR INSTRUCTOR, urgent care, hospital, or [facility]...) When possible be specific @ -No Did you speak to anyone other than the patient for history (EMS, parent, family, police, friend...)? What history was obtained from this source @ -Patient's daughter gave most of the history Did you review nursing and triage notes (agree or disagree)? Why? @ -I reviewed and agree with nursing and triage notes Were old charts reviewed (outside hosp., previous admission, EMS record, old EKG, old radiological studies, urgent care reports/EKG's, [facility] records)? Report findings @ -I reviewed prior charts and lab work on the patient Differential Diagnosis (chest pain, altered mental status, abdominal pain women, abdominal pain men, vaginal bleeding, weakness, fever, dyspnea, syncope, headache, dizziness, GI bleed, back pain, seizure, CVA, palpatations, mental health, musculoskeletal)? @ -Differential Weakness: Hypoglycemia, shock, sepsis, hyponatremia, anemia, infection, VA, ETOH, adverse medicine reaction, overdose, stroke, this is not meant to be an all-inclusive list. Differential Dyspnea: Coronary syndrome, arrhythmia, tamponade, asthma, COPD, pulmonary embolism, pneumonia, pneumothorax, pulmonary effusion, anaphylaxis, diabetic ketoacidosis, flailed chest, pulmonary contusion, diaphragmatic rupture, anemia, ne uromuscular, this is not meant to be an all-inclusive list. EKG interpreted by me (3pts min.). @ -As above X-rays interpreted by me (1pt min.). @ -Patient's chest x-ray is consistent with pulmonary edema CT interpreted by me (1pt min.). @ -None done U/S interpreted by me (1pt. min.). @ -None done What testing was considered but not performed or refused? (CT, X-rays, U/S, labs)? Why? @ -None What meds were considered but not given or refused? Why? @ -None Did you discuss the management of the patient with other professionals (professionals i.e. , PA, COMPUTER REPAIR INSTRUCTOR, lab, RT, psych nurse, social scientist, insurance commissioner, teacher, admissions officer, caseworker)? Give summary @ -I spoke with Dr. Hartley he agreed to admit the patient admit the patient wrote awaiting Was smoking cessation discussed for >3mins.? @ -No Was critical care preformed (if so, how long)? @ -35 minutes Were there social determinants of health that impacted care today? How? (Homelessness, low income, unemployed, alcoholism, drug addiction, transportation, low edu. Level, literacy, decrease access to med. care, care home, rehab)? @ -No Was there de-escalation of care discussed even if they declined (Discuss DNR or withdrawal of care, Hospice)? DNR status @ -No What co-morbidities impacted this encounter? (DM, HTN, Smoking, COPD, CAD, C ancer, CVA, ARF, Chemo, Hep., AIDS, mental health diagnosis, sleep apnea, morbid obesity)? @ -None Was patient admitted / discharged? Hospital course, mention meds given and route, prescriptions, significant lab abnormalities, going to OR and other pertinent info. @ -Patient was given Lasix for the congestive heart failure and placed nitroglycerin. Patient also had A-fib which she states is new onset. Patient did not want to start on blood thinners until she spoke with cardiology because she had a GI bleed in the past which was quite significant. Patient also has influenza A. Undiagnosed new problem with uncertain prognosis? @ -No Drug Therapy requiring intensive monitoring for toxicity (Heparin, Nitro, Insulin, Cardizem)? @ -No Were any procedures done? @ -No Diagnosis/symptom? @ -Influenza A Acute, or Chronic, or Acute on Chronic? @ -Acute Uncomplicated (without systemic symptoms) or Complicated (systemic symptoms)? @ -Uncomplicated Side effects of treatment? @ -No Exacerbation, Progression, or Severe Exacerbation? @ -No Poses a threat to life or bodily function? How? (Chest pain, USA, VA, pneumonia, PE, COPD, DKA, ARF, appy, cholecystitis, CVA, Diverticulitis, Homicidal, Suic idal, threat to staff... and all critical care pts) @ -No Diagnosis/symptom? @ -Acute pulmonary edema Acute, or Chronic, or Acute on Chronic? @ -Acute Uncomplicated (without systemic symptoms) or Complicated (systemic symptoms)? @ -Complicated Side effects of treatment? @ -None Exacerbation, Progression, or Severe Exacerbation] @ -No Poses a threat to life or bodily function? @ -Yes this can lead to hypoxia and endorgan dysfunction Diagnosis/symptom? @ -New onset A-fib Acute, or Chronic, or Acute on Chronic? @ -Acute Uncomplicated (without systemic symptoms) or Complicated (systemic symptoms)? @ -Complicated Side effects of treatment? @ -None Exacerbation, Progression, or Severe Exacerbation] @ -No Poses a threat to life or bodily function? @ -Yes this could lead to the production of blood clots and possible stroke - Lab Data Result diagrams: 03/21/23 13:56 03/21/23 13:56 Lab Results 03/21/23 03/21/23 03/21/23 Range/Units 13:56 13:56 13:56 WBC 10.8 H (3.8-10.6) k/uL RBC 3.84 (3.80-5.40) m/uL Hgb 11.5 (11.4-16.0) gm/dL Hct 35.7 (34.0-46.0) % MCV 93.0 (80.0-100.0) fL MCH 30.1 (25.0-35.0) pg MCHC 32.3 (31.0-37.0) g/dL RDW 15.4 (11.5-15.5) % Plt Count 306 (150-450) k/uL MPV 7.5 Neutrophils % 86 % Lymphocytes % 6 % Monocytes % 5 % Eosinophils % 2 % Basophils % 0 % Neutrophils # 9.3 H (1.3-7.7) k/uL Lymphocytes # 0.6 L (1.0-4.8) k/uL Monocytes # 0.5 (0-1.0) k/uL Eosinophils # 0.3 (0-0.7) k/uL Basophils # 0.0 (0-0.2) k/uL Hypochromasia Moderate PT 11.9 (10.0-12.5) sec INR 1.1 (<1.2) APTT 24.7 (22.0-30.0) sec D-Dimer 2.41 H (<0.60) mg/L FEU Sodium 135 L (137-145) mmol/L Potassium 4.5 (3.5-5.1) mmol/L Chloride 103 (98-107) mmol/L Carbon Dioxide 21 L (22-30) mmol/L Anion Gap 11 mmol/L BUN 53 H (7-17) mg/dL Creatinine 2.61 H (0.52-1.04) mg/dL Est GFR (CKD-EPI)AfAm 20 (>60 ml/min/1.73 sqM) Est GFR (CKD-EPI)NonAf 17 (>60 ml/min/1.73 sqM) Glucose 177 H (74-99) mg/dL Plasma Lactic Acid Walt (0.7-2.0) mmol/L Calcium 7.8 L (8.4-10.2) mg/dL Magnesium 2.2 (1.6-2.3) mg/dL Total Bilirubin 0.6 (0.2-1.3) mg/dL AST 38 H (14-36) U/L ALT 47 H (4-34) U/L Alkaline Phosphatase 101 (38-126) U/L Troponin I (0.000-0.034) ng/mL NT-Pro-B Natriuret Pep 09573 pg/mL Total Protein 6.7 (6.3-8.2) g/dL Albumin 3.4 L (3.5-5.0) g/dL Influenza Type A (PCR) (Not Detectd) Influenza Type B (PCR) (Not Detectd) RSV (PCR) (Not Detectd) SARS-CoV-2 (PCR) (Not Detectd) 03/21/23 03/21/23 03/21/23 Range/Units 13:56 13:56 13:56 WBC (3.8-10.6) k/uL RBC (3.80-5.40) m/uL Hgb (11.4-16.0) gm/dL Hct (34.0-46.0) % MCV (80.0-100.0) fL MCH (25.0-35.0) pg MCHC (31.0-37.0) g/dL RDW (11.5-15.5) % Plt Count (150-450) k/uL MPV Neutrophils % % Lymphocytes % % Monocytes % % Eosinophils % % Basophils % % Neutrophils # (1.3-7.7) k/uL Lymphocytes # (1.0-4.8) k/uL Monocytes # (0-1.0) k/uL Eosinophils # (0-0.7) k/uL Basophils # (0-0.2) k/uL Hypochromasia PT (10.0-12.5) sec INR (<1.2) APTT (22.0-30.0) sec D-Dimer (<0.60) mg/L FEU Sodium (137-145) mmol/L Potassium (3.5-5.1) mmol/L Chloride (98-107) mmol/L Carbon Dioxide (22-30) mmol/L Anion Gap mmol/L BUN (7-17) mg/dL Creatinine (0.52-1.04) mg/dL Est GFR (CKD-EPI)AfAm (>60 ml/min/1.73 sqM) Est GFR (CKD-EPI)NonAf (>60 ml/min/1.73 sqM) Glucose (74-99) mg/dL Plasma Lactic Acid Walt 1.1 (0.7-2.0) mmol/L Calcium (8.4-10.2) mg/dL Magnesium (1.6-2.3) mg/dL Total Bilirubin (0.2-1.3) mg/dL AST (14-36) U/L ALT (4-34) U/L Alkaline Phosphatase (38-126) U/L Troponin I <0.012 (0.000-0.034) ng/mL NT-Pro-B Natriuret Pep pg/mL Total Protein (6.3-8.2) g/dL Albumin (3.5-5.0) g/dL Influenza Type A (PCR) Detected A (Not Detectd) Influenza Type B (PCR) Not Detected (Not Detectd) RSV (PCR) Not Detected (Not Detectd) SARS-CoV-2 (PCR) Not Detected (Not Detectd) Critical Care Time Critical Care Time: Yes Total Critical Care Time: 35 Disposition Clinical Impression: Acute pulmonary edema, Influenza, New onset a-fib, Acute on chronic renal failure Disposition: ADMITTED IP TO THIS HOSP Referrals: Chet Ndiaye DO [Primary Care Provider] - 1-2 days Time of Disposition: 14:59
[2023-03-21 14:07] LABS: Basophils % (A) 0 %; Eosinophils # (A) 0.3 k/uL (0-0.7); Eosinophils % (A) 2 %; HCT 35.7 % (34.0-46.0); HGB 11.5 gm/dL (11.4-16.0); Hypochromasia Moderate; Lymphocytes # (A) 0.6 k/uL (1.0-4.8); Lymphocytes % (A) 6 %; MCH 30.1 pg (25.0-35.0); MCHC 32.3 g/dL (31.0-37.0); Mean Platelet Volume 7.5; Monocytes # (A) 0.5 k/uL (0-1.0); Monocytes % (A) 5 %; Neutrophils # (A) 9.3 k/uL (1.3-7.7); Neutrophils % (A) 86 %; Platelet Count 306 k/uL (150-450); RBC 3.84 m/uL (3.80-5.40); RDW 15.4 % (11.5-15.5); WBC 10.8 k/uL (3.8-10.6)
[2023-03-21 14:21] LABS: INR 1.1 (<1.2); Partial Thromboplastin Time 24.7 sec (22.0-30.0); Prothrombin Time 11.9 sec (10.0-12.5)
[2023-03-21 14:23] LABS: ALT 47 U/L (4-34); AST 38 U/L (14-36); African American GFR (CKD) 20 (>60 ml/min/1.73 sqM); Albumin 3.4 g/dL (3.5-5.0); Alkaline Phosphatase 101 U/L (38-126); Anion Gap 11 mmol/L; Blood Urea Nitrogen 53 mg/dL (7-17); Calcium 7.8 mg/dL (8.4-10.2); Carbon Dioxide 21 mmol/L (22-30); Chloride 103 mmol/L (98-107); Glucose 177 mg/dL (74-99); Magnesium 2.2 mg/dL (1.6-2.3); Non-African American GFR(CKD) 17 (>60 ml/min/1.73 sqM); Potassium 4.5 mmol/L (3.5-5.1); Sodium 135 mmol/L (137-145); Total Bilirubin 0.6 mg/dL (0.2-1.3); Total Protein 6.7 g/dL (6.3-8.2)
[2023-03-21 14:32] LABS: NT-Pro-B-Type Natriuretic Pept 20100 pg/mL
--- NOTE | 2023-03-21 14:34 | XR ---
EXAMINATION TYPE: XR chest 2V DATE OF EXAM: 03/21/2023 2:09 PM CLINICAL INDICATION:Female, 77 years old with history of Weakness; COMPARISON: Chest radiographs from 03/21/2014 TECHNIQUE: XR chest 2V Frontal and lateral views of the chest. FINDINGS: Lungs/Pleura: There is no evidence of pleural effusion, focal consolidation, or pneumothorax. Pulmonary vascularity: Unremarkable. Heart/mediastinum: Cardiomediastinal silhouette is enlarged and stable. Musculoskeletal: No acute osseous pathology. IMPRESSION: Low lung volumes with a generalized hazy appearance which could represent atelectasis versus pulmonar y edema correlate with serum BNP.
[2023-03-21] MEDS ORDERED: FUROSEMIDE 10 MG/ML 4 ML VIAL IV STA (14:44)
[2023-03-21] MEDS: FUROSEMIDE 10 MG/ML 4 ML VIAL IV SCH (15:13)
[2023-03-21 17:13] LABS: Glucose,Whole Blood 147 mg/dL (70-110)
[2023-03-21] MEDS ORDERED: FERROUS SULFATE 325 MG TAB PO PRN (18:55)
[2023-03-21] MEDS ORDERED: guaiFENesin SYRUP 100MG/5ML 200 MG/10 ML CUP PO PRN (18:57)
[2023-03-21] MEDS ORDERED: ONDANSETRON 4 MG/2 ML VIAL IVP PRN (18:57)
[2023-03-21] MEDS ORDERED: ACETAMINOPHEN TAB 325 MG TAB PO PRN (18:57)
[2023-03-21] MEDS ORDERED: DEXTROSE 50% SYRINGE 50 ML IVP PRN ×2 (18:58)
[2023-03-21] MEDS ORDERED: ERGOCALCIFEROL 1,250 MCG (50,000 IU) CAPSULE PO SCH (19:00)
[2023-03-21 20:02] LABS: Glucose,Whole Blood 159 mg/dL (70-110)
[2023-03-21] MEDS ORDERED: carvediloL 6.25 MG TAB PO SCH (21:00)
[2023-03-21] MEDS ORDERED: TIMOLOL 0.5% OPHTH DROPS 5 ML BTL RIGHT EYE SCH (21:00)
[2023-03-21] MEDS: NON FORMULARY DRUG (Rosuvastatin Calcium [Rosuvastatin Calcium] 5 MG Tablet) PO SCH (21:08)
[2023-03-21] MEDS: INSULIN ASPART (NovoLOG) 100 UNIT/ML VIAL SQ SCH (21:11)
[2023-03-21] MEDS: DULoxetine HCL 60 MG CAPSULE.DR PO SCH (21:11)
[2023-03-21] MEDS: GABAPENTIN 100 MG CAP PO SCH (21:11)
[2023-03-21] MEDS: LATANOPROST 0.005% OPHTH DROPS 2.5 ML BTL BOTH EYES SCH (21:11)
[2023-03-21] MEDS: HEPARIN SODIUM,PORCINE 5,000 UNIT/ML 1 ML VIAL SQ SCH (21:12)
[2023-03-21] MEDS: INSULIN DETEMIR (LEVEMIR) 100 UNIT/ML SYR SQ SCH (21:12)
[2023-03-21] MEDS: TIMOLOL 0.25% OPHTH DROPS 5 ML BTL BOTH EYES SCH (21:19)
[2023-03-22] MEDS: FUROSEMIDE 10 MG/ML 4 ML VIAL IV SCH ×3 (00:17→17:20)
--- NOTE | 2023-03-22 00:41 | P.HPIM ---
History of Present Illness H&P Date: 03/21/23 Chief Complaint: Shortness of breath Patient is a 77-year-old female with a past medical history of coronary artery disease status post stent placement, hypertension, diabetes type 2 insulin- dependent, history of GI bleed, osteoarthritis, chronic back pain, depression prior history of smoking presents to ER with complaints of generalized weakness and shortness of breath. Patient states that she was released from [facility] yesterday. She was admitted overnight for lip cellulitis as well as urinary tract infection. Patient is currently on Keflex for urinary tract infection. Patient went home and felt very weak and unable to get out of the bed With the help of her daughter. She became more short of breath especially with exertion. Denies any chest pain or palpitations. No nausea vomiting or diarrhea. No fever no chills. Chest x-ray showed low lung volumes with generalized hazy appearance which could represent atelectasis versus pulmonary edema correlate with serum BNP. EKG showed atrial fibrillation with low voltage QRS. Ventricular rate 88. Laboratory data showed WBC 10.8 hemoglobin 11.5 and platelets 306 D-dimer 2.41, sodium 135 potassium 4.5 chloride 103 BUN 53 and creatinine 2.61 and blood sugar 177 AST 38 ALT 47 alk phos 101 troponin x 1 [place] [id number] Influenza A detected. Review of Systems Constitutional: Patient denies any fever or chills . Generalized weakness and fatigue.. Abdomen: Patient denied any nausea or vomiting or abd. pain Cardiovascular: Patient denies any chest pain. Patient does have short of breath no palpitations. No leg swelling. Respiratory: patient does have cough without o sputum production. Positive for shortness of breath Neurologic: Patient denied any numbness or tingling or headache. Musculoskeletal: Patient denies any complaints of joint swelling or deformity. Skin: Negative Psychiatric: Negative Endocrine: No heat or cold intolerance. No recent weight gain. Genitourinary: No dysuria or hematuria. All other 14 point ROS negative except the above Past Medical History Past Medical History: Coronary Artery Disease (CAD), Heart Failure, Diabetes Mellitus, GERD/Reflux, GI Bleed, Myocardial Infarction (MD), Osteoarthritis (OA), Renal Disease Additional Past Medical History / Comment(s): CHRONIC BACK PAIN. Type 2 Diabetes, [place] 05/18 Last Myocardial Infarction Date:: 05/11/2021 History of Any Multi-Drug Resistant Organisms: None Reported Past Surgical History: Back Surgery, Heart Catheterization With Stent, Hernia Repair, Joint Replacement, Orthopedic Surgery Additional Past Surgical History / Comment(s): L3-S1 LAMI WITH HARDWARE. RIGHT THORACIC STEAL. LEFT HEEL SPUR. RIGHT BAKERS CYST. BILATERAL KNEE ARTHROSCOPIES. LEFT TKA. RIGHT ACHILLES TENDON REPAIR. BILATERAL CARPAL TUNNELS. BILATERAL CATARACTS. RIGHT TOTAL KNEE REPLACEMENT. LEFT ROTATOR CUFF AND BICEP REPAIR. Cardiac cath- RCA, LAD, CIRC. 05/13/2021. Past Anesthesia/Blood Transfusion Reactions: No Reported Reaction Date of Last Stent Placement:: 05/11/2021 Past Psychological History: Depression Smoking Status: Former smoker Past Alcohol Use History: None Reported Past Drug Use History: None Reported - Past Family History Father Family Medical History: Liver Disease Additional Family Medical History / Comment(s): Liver cirrhosis Mother Family Medical History: Congestive Heart Failure (CHF), Renal Disease Medications and Allergies Home Medications Medication Instructions Recorded Confirmed Type Bimatoprost [Lumigan 0.01% Ophth 1 drop BOTH EYES HS 06/07/21 03/21/23 History Soln] Bumetanide [Bumex] 1 mg PO BID@0600,1600 06/07/21 03/21/23 History DULoxetine HCL [Cymbalta] 60 mg PO HS 06/07/21 03/21/23 History INSULIN LISPRO (humaLOG) [humaLOG] 7 - 10 units SQ AC-TID 06/07/21 03/21/23 History Isosorbide Mononitrate ER [Imdur] 60 mg PO DAILY 06/07/21 03/21/23 History Nitroglycerin 0.4 mg SL Q5M PRN 06/07/21 03/21/23 History Potassium Chloride ER [K-Dur 20] 20 meq PO MOWEFR 06/07/21 03/21/23 History Timolol [Betimol 0.5% Ophth Soln] 1 drop RIGHT EYE BID 06/07/21 03/21/23 History oxyCODONE-APAP 10-325MG [Percocet 1 tab PO Q6H PRN 06/07/21 03/21/23 History 10-325 mg] calcitrioL [Calcitriol] 0.25 mcg PO MOWEFR 04/04/22 03/21/23 History Rosuvastatin Calcium 5 mg PO HS 05/09/23 01/23/24 History Aspirin EC [Ecotrin Low Dose] 81 mg PO DAILY 03/21/23 03/21/23 History Cephalexin [Keflex] 500 mg PO BID 03/21/23 03/21/23 History Cetirizine HCl 10 mg PO DAILY 03/21/23 03/21/23 History Cholecalciferol (Vitamin D3) 1,250 mcg PO Q7D 03/21/23 03/21/23 History [Vitamin D3] Clopidogrel [Plavix] 75 mg PO DAILY 03/21/23 03/21/23 History Ferrous Sulfate [Feosol] 325 mg PO DAILY PRN 03/21/23 03/21/23 History Gabapentin 300 mg PO TID@0600,1400,2200 03/21/23 03/21/23 History Insulin Glargine,Hum.rec.anlog 40 units PO HS 03/21/23 03/21/23 History [Toujeo Max Solostar] Metoprolol Succinate (ER) [Toprol 50 mg PO DAILY 03/21/23 03/21/23 History Xl] NIFEdipine XL [Procardia Xl] 30 mg PO DAILY 03/21/23 03/21/23 History Pantoprazole Sodium [Protonix] 20 mg PO DAILY 03/21/23 03/21/23 History carvediloL [Coreg] 6.25 mg PO HS 03/21/23 03/21/23 History carvediloL [Coreg] 12.5 mg PO DAILY 03/21/23 03/21/23 History clindamycin HCL 300 mg PO Q6H 03/21/23 03/21/23 History timoloL maleate [timoloL maleate 1 drop BOTH EYES BID 03/21/23 03/21/23 History 0.25%] Allergies Allergy/AdvReac Type Severity Reaction Status Date / Time levofloxacin Allergy Unknown Verified 03/21/23 17:01 Penicillins Allergy Rash/Hives Verified 03/21/23 17:01 pistachio nut Allergy Dyspnea Verified 03/21/23 17:01 [id number] Reductase Allergy Unknown Verified 03/21/23 17:01 Inhibitor Sulfa (Sulfonamide Allergy Rash/Hives Verified 03/21/23 17:01 Antibiotics) Physical Exam Vitals: Vital Signs Temp Pulse Resp BP Pulse Ox 03/21/23 15:00 99.5 F 87 18 142/83 03/21/23 13:09 97.4 F L 104 H 18 153/78 96 Intake and Output 03/21/23 03/21/23 03/21/23 06:59 14:59 22:59 Other: Weight 86.183 kg PHYSICAL EXAMINATION: Patient is lying in the bed , no acute distress, awake alert and oriented.. HEENT: Normocephalic. Neck is supple. Pupils reactive. Nostrils clear. Oral cavity is moist. Neck reveals no JVD, carotid bruits, or thyromegaly. CHEST EXAMINATION: Trachea is central. Symmetrical expansion. Patient does have diffuse crackles and coarse breath sounds. Nonlabored breathing. CARDIAC: Normal S1, S2 with no gallops. No murmurs ABDOMEN: Soft. Bowel sounds present. Nontender. No organomegaly. No abdominal bruits. Extremities: reveal no edema. No clubbing or cyanosis Neurologically awake, alert, oriented x2-3. No gross focal deficits noted Skin: No rash or skin lesions. Psychiatric: Coperative. Nonsuicidal, Musculoskeletal: No joint swelling or deformity. Normal range of motion. Results CBC & Chem 7: 03/21/23 13:56 03/21/23 13:56 Labs: Abnormal Lab Results - Last 24 Hours (Table) 03/21/23 03/21/23 03/21/23 Range/Units 13:56 13:56 13:56 WBC 10.8 H (3.8-10.6) k/uL Neutrophils # 9.3 H (1.3-7.7) k/uL Lymphocytes # 0.6 L (1.0-4.8) k/uL D-Dimer 2.41 H (<0.60) mg/L FEU Sodium 135 L (137-145) mmol/L Carbon Dioxide 21 L (22-30) mmol/L BUN 53 H (7-17) mg/dL Creatinine 2.61 H (0.52-1.04) mg/dL Glucose 177 H (74-99) mg/dL Calcium 7.8 L (8.4-10.2) mg/dL AST 38 H (14-36) U/L ALT 47 H (4-34) U/L Albumin 3.4 L (3.5-5.0) g/dL Influenza Type A (PCR) (Not Detectd) 03/21/23 Range/Units 13:56 WBC (3.8-10.6) k/uL Neutrophils # (1.3-7.7) k/uL Lymphocytes # (1.0-4.8) k/uL D-Dimer (<0.60) mg/L FEU Sodium (137-145) mmol/L Carbon Dioxide (22-30) mmol/L BUN (7-17) mg/dL Creatinine (0.52-1.04) mg/dL Glucose (74-99) mg/dL Calcium (8.4-10.2) mg/dL AST (14-36) U/L ALT (4-34) U/L Albumin (3.5-5.0) g/dL Influenza Type A (PCR) Detected A (Not Detectd) Thrombosis Risk Factor Assmnt - DVT/VTE Prophylaxis DVT/VTE Prophylaxis: Pharmacologic Prophylaxis ordered Assessment and Plan Assessment: Acute influenza A infection Acute CHF. Ejection fraction not known. Atrial fibrillation. New onset. Heart rate controlled. Acute on chronic renal disease stage IV. Baseline creatinine 1.8 and creatinine 2.61 on admission History of GI bleed in June 2022 Coronary artery disease with history of stent placement on 05/11/2021 Diabetes type 2 insulin-dependent Uncontrolled hypertension GERD History of MD Osteoarthritis Depression Prior history of smoking Chronic back pain DVT prophylaxis with heparin subcu. GI prophylax with PPI Plan: Patient will be continued on telemonitoring. Continue with IV diuresis and monitor renal function closely. Patient was started back on blood pressure medications Coreg, nifedipine. Currently dizziness sliding scale and Levemir. Patient does not want to be anticoagulated due to history of prior GI bleed. Cardiology was consulted for evaluation. Continue to follow closely. Prognosis is guarded. Time with Patient: Greater than 30
[2023-03-22 06:09] LABS: Glucose,Whole Blood 156 mg/dL (70-110)
[2023-03-22 06:29] LABS: Appearance,Urine Clear (Clear); Bilirubin,Urine Negative (Negative); Blood,Urine Trace (Negative); Color,Urine Colorless; Glucose,Urine (UA) 3+ (Negative); Ketones,Urine Negative (Negative); Leukocyte Esterase,Urine Negative (Negative); Nitrite,Urine Negative (Negative); PH, Urine 6.5 (5.0-8.0); Protein,Urine 3+ (Negative); RBC,Urine 2 /hpf (0-5); Specific Gravity,Urine 1.012 (1.001-1.035); Squamous Epithelial Cell,Urine <1 /hpf (0-4); Urobilinogen,Urine <2.0 mg/dL (<2.0); WBC,Urine 3 /hpf (0-5)
[2023-03-22] MEDS: PANTOPRAZOLE 40 MG TABLET PO SCH (06:34)
[2023-03-22] MEDS: INSULIN ASPART (NovoLOG) 100 UNIT/ML VIAL SQ SCH ×4 (06:34→20:47)
[2023-03-22 08:18] LABS: Basophils % (A) 0 %; Eosinophils # (A) 0.1 k/uL (0-0.7); Eosinophils % (A) 1 %; HGB 11.4 gm/dL (11.4-16.0); Hypochromasia Moderate; Lymphocytes # (A) 0.5 k/uL (1.0-4.8); Lymphocytes % (A) 5 %; MCH 29.4 pg (25.0-35.0); MCHC 31.6 g/dL (31.0-37.0); MCV 93.1 fL (80.0-100.0); Mean Platelet Volume 7.8; Monocytes # (A) 0.5 k/uL (0-1.0); Monocytes % (A) 5 %; Neutrophils # (A) 9.3 k/uL (1.3-7.7); Neutrophils % (A) 88 %; Platelet Count 234 k/uL (150-450); RBC 3.87 m/uL (3.80-5.40); RDW 15.7 % (11.5-15.5); WBC 10.5 k/uL (3.8-10.6)
[2023-03-22 08:35] LABS: African American GFR (CKD) 21 (>60 ml/min/1.73 sqM); Anion Gap 8 mmol/L; Blood Urea Nitrogen 49 mg/dL (7-17); Calcium 7.8 mg/dL (8.4-10.2); Carbon Dioxide 25 mmol/L (22-30); Chloride 101 mmol/L (98-107); Glucose 167 mg/dL (74-99); Non-African American GFR(CKD) 18 (>60 ml/min/1.73 sqM); Potassium 3.8 mmol/L (3.5-5.1); Sodium 134 mmol/L (137-145)
--- NOTE | 2023-03-22 08:37 | CT ---
EXAMINATION TYPE: CT brain wo con DATE OF EXAM: 03/21/2023 COMPARISON: None INDICATION: Confusion, AMS, headache DLP: 1183.4 mGycm, Automated exposure control for dose reduction was used. CONTRAST: None CT of the brain is performed utilizing 3 mm thick sections through the posterior fossa and 3 mm thick sections through the remaining calvarium. Study is performed within 24 hours of arrival to the hosp ital. No abnormal hyperdensity is present to suggest an acute intracranial hemorrhage. No mass lesion is evident. No acute infarcts are evident. There may be some mild periventricular white matter hypodensity, likel y on the basis of chronic white matter ischemic changes. Ventricles and sulci are appropriate for the patient age. Paranasal sinuses and mastoid air cells within the [id number] are clear. IMPRESSION: 1. Suggestion of mild chronic-appearing periventricular white matter ischemic changes. 2. No acute intracranial process. Follow-up MRI can be performed as clinically indicated.
[2023-03-22] MEDS ORDERED: METOPROLOL SUCCINATE (ER) 50 MG TAB.ER.24H PO SCH (09:00)
[2023-03-22] MEDS ORDERED: carvediloL 12.5 MG TAB PO SCH (09:00)
--- NOTE | 2023-03-22 09:01 | P.CRDCN ---
History of Present Illness History of present illness: HISTORY OF PRESENT ILLNESS: This is a 77-year-old female with a past medical history significant for hypertension, hyperlipidemia, atrial fibrillation, congestive heart failure, GI bleed, coronary artery disease with previous stenting, and recent Watchman device. Patient follows with a assistant federal public defender at [facility]. We have been asked to see the patient in consultation for congestive heart failure. Patient examined at the bedside. Patient's daughter is at the bedside and providing the majority of the history as the patient is feeling unwell this morning. Patient's daughter states that she was hospitalized at [facility] a couple days ago for cellulitis of the lip versus angioedema. She was treated with antibiotic therapy. She also reports she had altered mental status at that time and was treated for urinary tract infection. She was discharged home in stable condition. The daughter states yesterday the patient became very weak and lethargic and was feeling generally unwell. They state that she was complaining of shortness of breath. She was brought to the emergency room for further evaluation. She was found to be positive for influenza A. Patient does report shortness of breath this morning. She denies any chest pain or pressure. Telemetry reveals atrial fibrillation with controlled ventricular rate. Patient's blood pressures have been elevated since admission with systolics ranging between [id number]. The patient's daughter reports that she had a Watchman procedure performed at [facility] approximately 5 months ago. She states that she was told to continue her Aspirin and Plavix for 1 more month by her assistant federal public defender. She denies ever having an ablation or cardioversion. She does report having stents in her heart with the last one being placed in 2021. She denies any history of cardiomyopathy to her knowledge. DIAGNOSTICS: EKG reveals atrial fibrillation with controlled ventricular rate Chest xray low lung volumes with generalized hazy appearance which could represent atelectasis versus pulmonary edema Laboratory data: WBC 10.5. Hemoglobin 11.4. Platelet count 234. Sodium 134. Potassium 3.8. BUN 49. Creatinine 2.49. Troponin negative x 1. proBNP 20,100. Current home cardiac medications include carvedilol 6.25 mg at night and 12.5 mg in the morning, rosuvastatin 5 mg at night, nifedipine 30 mg daily, metoprol ol succinate 50 mg daily, Imdur 60 mg daily, Plavix 75 mg daily, Bumex 1 mg twice a day, and aspirin 81 mg daily REVIEW OF SYSTEMS: At the time of my exam: CONSTITUTIONAL: Denies fever or chills. Reports feeling unwell HEENT: Denies blurred vision, vision changes, or eye pain. Denies hemoptysis CARDIOVASCULAR: Denies chest pain. Denies orthopnea. Denies PND. Denies palpitations RESPIRATORY: Reports shortness of breath. GASTROINTESTINAL: Denies abdominal pain. Denies nausea or vomiting. HEMATOLOGIC: Denies bleeding disorders. GENITOURINARY: Denies any blood in urine. SKIN: Denies pruitis. Denies rash. PHYSICAL EXAM: VITAL SIGNS: Reviewed. GENERAL: Well-developed in no acute distress. Diaphoretic. HEENT: Head is normocephalic. Pupils are equal, round. Sclerae anicteric. Mucous membranes of the mouth are moist. Neck supple. No JVD or thyromegaly LUNGS: Respirations even and unlabored. Lungs diminished with expiratory wheezing and rhonchi noted. Bibasilar crackles. HEART: Irregular rate and rhythm. S1 and S2 heard. ABDOMEN: Soft. Nondistended. Nontender. EXTREMITIES: Normal range of motion. No clubbing or cyanosis. Peripheral pulses intact. Bilateral lower extremity edema noted, worse at the ankles NEUROLOGIC: Awake and alert. Oriented x 3. ASSESSMENT: Shortness of breath Acute influenza A Acute on chronic heart failure, EF unknown, echo pending Acute on chronic kidney disease Atrial fibrillation with controlled ventricular rate, paroxysmal versus persistent History of recent Watchman device Coronary artery disease with previous PCI, most recently in 2021 Hypertension Hyperlipidemia History of GI bleeding PLAN: Obtain 2D echo to assess cardiac structure and function Resume home cardiac medications Increase carvedilol to 12.5 mg twice a day Continue telemetry monitoring Add hydralazine 25 mg 3 times daily for optimal blood pressure control Would benefit from Farxiga when AUDREY improves Nephrology has been consulted for evaluation. Await recommendations Continue with aspirin and Plavix at this time. Patient does not require anticoagulation due to recent Watchman procedure performed at [facility] Obtain records from patients primary assistant federal public defender Further recommendations pending patient course Nurse practitioner note has been reviewed by physician. Signing provider agrees with the documented findings, assessment, and plan of care documented by [employer] as a scribe. Past Medical History Past Medical History: Coronary Artery Disease (CAD), Heart Failure, Diabetes Mellitus, GERD/Reflux, GI Bleed, Myocardial Infarction (NC), Osteoarthritis (OA), Renal Disease Additional Past Medical History / Comment(s): CHRONIC BACK PAIN. Type 2 Diabetes, [place] 05/18 Last Myocardial Infarction Date:: 05/11/2021 History of Any Multi-Drug Resistant Organisms: None Reported Past Surgical History: Back Surgery, Heart Catheterization With Stent, Hernia Repair, Joint Replacement, Orthopedic Surgery Additional Past Surgical History / Comment(s): L3-S1 LAMI WITH HARDWARE. RIGHT THORACIC STEAL. LEFT HEEL SPUR. RIGHT BAKERS CYST. BILATERAL KNEE ARTHROSCOPIES. LEFT TKA. RIGHT ACHILLES TENDON REPAIR. BILATERAL CARPAL TUNNELS. BILATERAL CATARACTS. RIGHT TOTAL KNEE REPLACEMENT. LEFT ROTATOR CUFF AND BICEP REPAIR. Cardiac cath- RCA, LAD, CIRC. 05/13/2021. Past Anesthesia/Blood Transfusion Reactions: No Reported Reaction Date of Last Stent Placement:: 05/11/2021 Past Psychological History: Depression Smoking Status: Former smoker Past Alcohol Use History: None Reported Past Drug Use History: None Reported - Past Family History Father Family Medical History: Liver Disease Additional Family Medical History / Comment(s): Liver cirrhosis Mother Family Medical History: Congestive Heart Failure (CHF), Renal Disease Medications and Allergies Home Medications Medication Instructions Recorded Confirmed Type Bimatoprost [Lumigan 0.01% Ophth 1 drop BOTH EYES HS 06/07/21 03/21/23 History Soln] Bumetanide [Bumex] 1 mg PO BID@0600,1600 06/07/21 03/21/23 History DULoxetine HCL [Cymbalta] 60 mg PO HS 06/07/21 03/21/23 History INSULIN LISPRO (humaLOG) [humaLOG] 7 - 10 units SQ AC-TID 06/07/21 03/21/23 History Isosorbide Mononitrate ER [Imdur] 60 mg PO DAILY 06/07/21 03/21/23 History Nitroglycerin 0.4 mg SL Q5M PRN 06/07/21 03/21/23 History Potassium Chloride ER [K-Dur 20] 20 meq PO MOWEFR 06/07/21 03/21/23 History Timolol [Betimol 0.5% Ophth Soln] 1 drop RIGHT EYE BID 06/07/21 03/21/23 History oxyCODONE-APAP 10-325MG [Percocet 1 tab PO Q6H PRN 06/07/21 03/21/23 History 10-325 mg] calcitrioL [Calcitriol] 0.25 mcg PO MOWEFR 04/04/22 03/21/23 History Rosuvastatin Calcium 5 mg PO HS 07/05/22 03/21/23 History Aspirin EC [Ecotrin Low Dose] 81 mg PO DAILY 03/21/23 03/21/23 History Cephalexin [Keflex] 500 mg PO BID 03/21/23 03/21/23 History Cetirizine HCl 10 mg PO DAILY 03/21/23 03/21/23 History Cholecalciferol (Vitamin D3) 1,250 mcg PO Q7D 03/21/23 03/21/23 History [Vitamin D3] Clopidogrel [Plavix] 75 mg PO DAILY 03/21/23 03/21/23 History Ferrous Sulfate [Feosol] 325 mg PO DAILY PRN 03/21/23 03/21/23 History Gabapentin 300 mg PO TID@0600,1400,2200 03/21/23 03/21/23 History Insulin Glargine,Hum.rec.anlog 40 units PO HS 03/21/23 03/21/23 History [Toujeo Max Solostar] Metoprolol Succinate (ER) [Toprol 50 mg PO DAILY 03/21/23 03/21/23 History Xl] NIFEdipine XL [Procardia Xl] 30 mg PO DAILY 03/21/23 03/21/23 History Pantoprazole Sodium [Protonix] 20 mg PO DAILY 03/21/23 03/21/23 History carvediloL [Coreg] 6.25 mg PO HS 03/21/23 03/21/23 History carvediloL [Coreg] 12.5 mg PO DAILY 03/21/23 03/21/23 History clindamycin HCL 300 mg PO Q6H 03/21/23 03/21/23 History timoloL maleate [timoloL maleate 1 drop BOTH EYES BID 03/21/23 03/21/23 History 0.25%] Allergies Allergy/AdvReac Type Severity Reaction Status Date / Time levofloxacin Allergy Unknown Verified 03/21/23 17:01 Penicillins Allergy Rash/Hives Verified 03/21/23 17:01 pistachio nut Allergy Dyspnea Verified 03/21/23 17:01 [id number] Reductase Allergy Unknown Verified 03/21/23 17:01 Inhibitor Sulfa (Sulfonamide Allergy Rash/Hives Verified 03/21/23 17:01 Antibiotics) Physical Exam Vitals: Vital Signs Temp Pulse Pulse Resp BP BP Pulse Ox 03/22/23 04:00 98.3 F 87 18 161/84 96 03/22/23 00:00 98.2 F 92 18 159/84 95 03/21/23 20:00 98.6 F 101 H 18 180/100 96 03/21/23 16:16 98.0 F 75 18 169/92 99 03/21/23 15:00 99.5 F 87 18 142/83 03/21/23 13:09 97.4 F L 104 H 18 153/78 96 Intake and Output 03/21/23 03/22/23 03/22/23 22:59 06:59 14:59 Intake Total 118 Output Total 1200 Balance 118 -1200 Intake: Oral 118 Output: Urine 1200 Other: Voiding Method External Catheter External Catheter # Voids 1 1 Weight 86.183 kg 91 kg Results 03/22/23 07:38 03/22/23 07:38 Cardiac Enzymes 03/21/23 03/21/23 Range/Units 13:56 13:56 AST 38 H (14-36) U/L Troponin I <0.012 (0.000-0.034) ng/mL Coagulation 03/21/23 Range/Units 13:56 PT 11.9 (10.0-12.5) sec APTT 24.7 (22.0-30.0) sec CBC 03/21/23 Range/Units 13:56 WBC 10.8 H (3.8-10.6) k/uL RBC 3.84 (3.80-5.40) m/uL Hgb 11.5 (11.4-16.0) gm/dL Hct 35.7 (34.0-46.0) % Plt Count 306 (150-450) k/uL Comprehensive Metabolic Panel 03/21/23 Range/Units 13:56 Sodium 135 L (137-145) mmol/L Potassium 4.5 (3.5-5.1) mmol/L Chloride 103 (98-107) mmol/L Carbon Dioxide 21 L (22-30) mmol/L BUN 53 H (7-17) mg/dL Creatinine 2.61 H (0.52-1.04) mg/dL Glucose 177 H (74-99) mg/dL Calcium 7.8 L (8.4-10.2) mg/dL AST 38 H (14-36) U/L ALT 47 H (4-34) U/L Alkaline Phosphatase 101 (38-126) U/L Total Protein 6.7 (6.3-8.2) g/dL Albumin 3.4 L (3.5-5.0) g/dL Current Medications Generic Name Dose Route Start Last Admin Trade Name Freq PRN Reason Stop Dose Admin Acetaminophen 650 mg 03/21/23 18:57 03/22/23 06:34 Acetaminophen Tab 325 Mg Tab PO 650 mg Q6HR PRN Administration Fever and/ or Pain Aspirin 81 mg 03/22/23 09:00 Aspirin 81 Mg PO DAILY HUANG Benzocaine/Menthol 1 each 03/21/23 18:57 Benzocaine/Menthol Lozeng 1 Each Lozenge MUCOUS MEM Q4HR PRN Cough Calcitriol 0.25 mcg 03/22/23 09:00 Calcitriol 0.25 Mcg Cap PO MOWEFR [facility] Carvedilol 6.25 mg 03/21/23 21:00 03/21/23 21:11 Carvedilol 6.25 Mg Tab PO 6.25 mg HS HUANG Administration Carvedilol 12.5 mg 03/22/23 09:00 Carvedilol 12.5 Mg Tab PO DAILY HUANG Clopidogrel Bisulfate 75 mg 03/22/23 09:00 Clopidogrel 75 Mg Tab PO DAILY HUANG Dextrose/Water 25 ml 03/21/23 18:58 Dextrose 50% Syringe 50 Ml IVP PER PROTOCOL PRN Hypoglycemia Protocol Dextrose/Water 50 ml 03/21/23 18:58 Dextrose 50% Syringe 50 Ml IVP PER PROTOCOL PRN Hypoglycemia Protocol Duloxetine HCl 60 mg 03/21/23 21:00 03/21/23 21:11 Duloxetine Hcl 60 Mg Capsule.Dr PO 60 mg HS HUANG Administration Ergocalciferol 1,250 mcg 03/21/23 19:00 03/21/23 21:19 Ergocalciferol 1,250 Mcg (50,000 Iu) Capsule PO 1,250 mcg Q7D HUANG Administration Ferrous Sulfate 325 mg 03/21/23 18:55 Ferrous Sulfate 325 Mg Tab PO DAILY PRN supplement Furosemide 40 mg 03/21/23 16:00 03/22/23 00:17 Furosemide 10 Mg/Ml 4 Ml Vial IV 40 mg Q8H HUANG Administration Gabapentin 100 mg 03/21/23 21:00 03/21/23 21:11 Gabapentin 100 Mg Cap PO 100 mg BID [facility] Administration Guaifenesin 200 mg 03/21/23 18:57 Guaifenesin Syrup 100mg/5ml 200 Mg/10 Ml Cup PO Q6HR PRN Cough Heparin Sodium (Porcine) 5,000 unit 03/21/23 21:00 03/21/23 21:12 Heparin Sodium,Porcine 5,000 Unit/Ml 1 Ml Vial SQ 5,000 unit Q12HR [facility] Administration Insulin Aspart 0 unit 03/21/23 21:00 03/22/23 06:34 Insulin Aspart (Novolog) 100 Unit/Ml Vial SQ 1 unit ACHS [facility] Administration Protocol Insulin Detemir 12 unit 03/21/23 21:00 03/21/23 21:12 Insulin Detemir (Levemir) 100 Unit/Ml Syr SQ 12 unit HS [facility] Administration Isosorbide Mononitrate 60 mg 03/22/23 09:00 Isosorbide Mononitrate Er 60 Mg Tab.Er.24h PO DAILY [facility] Latanoprost 1 drops 03/21/23 21:00 03/21/23 21:11 Latanoprost 0.005% Ophth Drops 2.5 Ml Btl BOTH EYES 1 drops HS [facility] Administration Loratadine 10 mg 03/22/23 09:00 Loratadine 10 Mg Tab PO DAILY [facility] Nifedipine 30 mg 03/22/23 09:00 Nifedipine Xl 30 Mg Tab.Er.24 PO DAILY [facility] Nitroglycerin 1 inch 03/22/23 18:00 Nitroglycerin Oint 1 Inch/Gm Packet TOPICAL QID [facility] Non-Formulary Medication 5 mg 03/21/23 21:00 03/21/23 21:08 Rosuvastatin Calcium [Rosuvastatin Calcium] PO Not Given HS [facility] Ondansetron HCl 4 mg 03/21/23 18:57 Ondansetron 4 Mg/2 Ml Vial IVP Q6HR PRN Nausea And Vomiting Oxycodone/Acetaminophen 1 each 03/21/23 18:55 Oxycodone-Apap 10-325mg 1 Each Tab PO Q6H PRN Pain Pantoprazole Sodium 40 mg 03/22/23 07:30 03/22/23 06:34 Pantoprazole 40 Mg Tablet PO 40 mg [id number] HUANG Administration Timolol Maleate 1 drops 03/21/23 21:00 03/21/23 21:19 Timolol 0.25% Ophth Drops 5 Ml Btl BOTH EYES 1 drops BID HUANG Administration Intake and Output 03/21/23 03/22/23 03/22/23 22:59 06:59 14:59 Intake Total 118 Output Total 1200 Balance 118 -1200 Intake: Oral 118 Output: Urine 1200 Other: Voiding Method External Catheter External Catheter # Voids 1 1 Weight 86.183 kg 91 kg 03/21/23 13:56 03/21/23 13:56
[2023-03-22] MEDS: CLOPIDOGREL 75 MG TAB PO SCH (09:09)
[2023-03-22] MEDS: NIFEdipine XL 30 MG TAB.ER.24 PO SCH (09:09)
[2023-03-22] MEDS: GABAPENTIN 100 MG CAP PO SCH ×2 (09:09→20:47)
[2023-03-22] MEDS: ASPIRIN 81 MG PO SCH (09:09)
[2023-03-22] MEDS: ISOSORBIDE MONONITRATE ER 60 MG TAB.ER.24H PO SCH (09:09)
[2023-03-22] MEDS: hydrALAZINE HCL 25 MG TAB PO SCH ×3 (09:09→20:48)
[2023-03-22] MEDS: LORATADINE 10 MG TAB PO SCH (09:09)
[2023-03-22] MEDS: HEPARIN SODIUM,PORCINE 5,000 UNIT/ML 1 ML VIAL SQ SCH ×2 (09:10→20:47)
[2023-03-22] MEDS: carvediloL 12.5 MG TAB PO SCH ×2 (09:12→17:20)
[2023-03-22] MEDS: TIMOLOL 0.25% OPHTH DROPS 5 ML BTL BOTH EYES SCH ×2 (09:13→20:48)
--- NOTE | 2023-03-22 09:23 | XR ---
EXAMINATION TYPE: XR chest 1V DATE OF EXAM: 03/22/2023 COMPARISON: 03/21/2023 HISTORY: 77-year-old female CHF TECHNIQUE: Single frontal view of the chest is obtained. FINDINGS: Some type of clips, stent material, or occluder device projects near the left AP window re gion. Clinically correlate. Low lung volumes. Heart mildly enlarged. Interstitial density persists. P atchy left basilar opacity is increased. No sizable pleural effusion. IMPRESSION: Hypoventilatory changes with ongoing mild pulmonary vascular congestion. Patchy densitie s have increased at the left base.
[2023-03-22 10:45] VITALS: BMI 34.4
--- NOTE | 2023-03-22 10:51 | P.NPCON ---
History of Present Illness - Reason for Consult chronic renal failure - History of Present Illness Patient is a 77-year-old female with CKD and Stage IV with baseline creatinine recently increased to around 2.8 to 3 mg/dL. Patient was recently discharged from [facility] after admission for lip cellulitis. Serum creatinine around the time of discharge was 3.2. Patient is readmitted here with complaints of shortness of breath. He has also been weak. Noted to be in fluid overload and is currently being diuresed. Serum creatinine was 2.6 yesterday and decreased to 2.49. Urine output charted at 1200 cc. Blood pressure is not low. Overall patient states she is feeling slightly better. Patient was scheduled for outpatient dialysis education. She is leaning towards PD. Review of Systems As per HPI Past Medical History Past Medical History: Coronary Artery Disease (CAD), Heart Failure, Diabetes Mellitus, GERD/Reflux, GI Bleed, Myocardial Infarction ([place]), Osteoarthritis (OA), Renal Disease Additional Past Medical History / Comment(s): CHRONIC BACK PAIN. Type 2 Diabetes, [place] 05/18 Last Myocardial Infarction Date:: 05/11/2021 History of Any Multi-Drug Resistant Organisms: None Reported Past Surgical History: Back Surgery, Heart Catheterization With Stent, Hernia Repair, Joint Replacement, Orthopedic Surgery Additional Past Surgical History / Comment(s): L3-S1 LAMI WITH HARDWARE. RIGHT THORACIC STEAL. LEFT HEEL SPUR. RIGHT BAKERS CYST. BILATERAL KNEE ARTHROSCOPIES. LEFT TKA. RIGHT ACHILLES TENDON REPAIR. BILATERAL CARPAL TUNNELS. BILATERAL CATARACTS. RIGHT TOTAL KNEE REPLACEMENT. LEFT ROTATOR CUFF AND BICEP REPAIR. Cardiac cath- RCA, LAD, CIRC. 05/13/2021. Past Anesthesia/Blood Transfusion Reactions: No Reported Reaction Date of Last Stent Placement:: 05/11/2021 Past Psychological History: Depression Smoking Status: Former smoker Past Alcohol Use History: None Reported Past Drug Use History: None Reported - Past Family History Father Family Medical History: Liver Disease Additional Family Medical History / Comment(s): Liver cirrhosis Mother Family Medical History: Congestive Heart Failure (CHF), Renal Disease Medications and Allergies Home Medications Medication Instructions Recorded Confirmed Type Bimatoprost [Lumigan 0.01% Ophth 1 drop BOTH EYES HS 06/07/21 03/21/23 History Soln] Bumetanide [Bumex] 1 mg PO BID@0600,1600 06/07/21 03/21/23 History DULoxetine HCL [Cymbalta] 60 mg PO HS 06/07/21 03/21/23 History INSULIN LISPRO (humaLOG) [humaLOG] 7 - 10 units SQ AC-TID 06/07/21 03/21/23 History Isosorbide Mononitrate ER [Imdur] 60 mg PO DAILY 06/07/21 03/21/23 History Nitroglycerin 0.4 mg SL Q5M PRN 06/07/21 03/21/23 History Potassium Chloride ER [K-Dur 20] 20 meq PO MOWEFR 06/07/21 03/21/23 History Timolol [Betimol 0.5% Ophth Soln] 1 drop RIGHT EYE BID 06/07/21 03/21/23 History oxyCODONE-APAP 10-325MG [Percocet 1 tab PO Q6H PRN 06/07/21 03/21/23 History 10-325 mg] calcitrioL [Calcitriol] 0.25 mcg PO MOWEFR 04/04/22 03/21/23 History Rosuvastatin Calcium 5 mg PO HS 07/05/22 03/21/23 History Aspirin EC [Ecotrin Low Dose] 81 mg PO DAILY 03/21/23 03/21/23 History Cephalexin [Keflex] 500 mg PO BID 03/21/23 03/21/23 History Cetirizine HCl 10 mg PO DAILY 03/21/23 03/21/23 History Cholecalciferol (Vitamin D3) 1,250 mcg PO Q7D 03/21/23 03/21/23 History [Vitamin D3] Clopidogrel [Plavix] 75 mg PO DAILY 03/21/23 03/21/23 History Ferrous Sulfate [Feosol] 325 mg PO DAILY PRN 03/21/23 03/21/23 History Gabapentin 300 mg PO TID@0600,1400,2200 03/21/23 03/21/23 History Insulin Glargine,Hum.rec.anlog 40 units PO HS 03/21/23 03/21/23 History [Toujeo Max Solostar] Metoprolol Succinate (ER) [Toprol 50 mg PO DAILY 03/21/23 03/21/23 History Xl] NIFEdipine XL [Procardia Xl] 30 mg PO DAILY 03/21/23 03/21/23 History Pantoprazole Sodium [Protonix] 20 mg PO DAILY 03/21/23 03/21/23 History carvediloL [Coreg] 6.25 mg PO HS 03/21/23 03/21/23 History carvediloL [Coreg] 12.5 mg PO DAILY 03/21/23 03/21/23 History clindamycin HCL 300 mg PO Q6H 03/21/23 03/21/23 History timoloL maleate [timoloL maleate 1 drop BOTH EYES BID 03/21/23 03/21/23 History 0.25%] Allergies Allergy/AdvReac Type Severity Reaction Status Date / Time levofloxacin Allergy Unknown Verified 03/21/23 17:01 Penicillins Allergy Rash/Hives Verified 03/21/23 17:01 pistachio nut Allergy Dyspnea Verified 03/21/23 17:01 [id number] Reductase Allergy Unknown Verified 03/21/23 17:01 Inhibitor Sulfa (Sulfonamide Allergy Rash/Hives Verified 03/21/23 17:01 Antibiotics) Physical Exam Vitals: Vital Signs Temp Pulse Pulse Resp BP BP Pulse Ox 03/22/23 08:00 98.6 F 77 16 141/68 97 03/22/23 04:00 98.3 F 87 18 161/84 96 03/22/23 00:00 98.2 F 92 18 159/84 95 03/21/23 20:00 98.6 F 101 H 18 180/100 96 03/21/23 16:16 98.0 F 75 18 169/92 99 03/21/23 15:00 99.5 F 87 18 142/83 03/21/23 13:09 97.4 F L 104 H 18 153/78 96 Intake and Output 03/21/23 03/22/23 03/22/23 22:59 06:59 14:59 Intake Total 118 110 Output Total 1200 Balance 118 -1200 110 Intake: Oral 118 110 Output: Urine 1200 Other: Voiding Method External Catheter External Catheter Toilet External Catheter # Voids 1 1 Weight 86.183 kg 91 kg 91 kg Patient is awake, comfortable, no acute distress Examination of the heart S1 and S2 Examination of the lungs bilateral breath sounds are heard Abdomen is soft nontender Examination lower extremity shows edema 2+ bilaterally BROADCASTER exam grossly intact Results - Lab Results Most recent lab results Calcium 7.8 mg/dL (8.4-10.2) L 03/22/23 07:38 Magnesium 2.2 mg/dL (1.6-2.3) 03/21/23 13:56 03/22/23 07:38 03/22/23 07:38 Assessment and Plan Assessment: 1. Chronic kidney disease and Stage IV with baseline creatinine recently around 3 mg/dL with plans for preparation for renal replacement therapy as outpatient. Serum creatinine this admission was 2.6 and decreased to 2.4 today. Currently patient is being diuresed. 2. Component of acute kidney injury mostly cardiorenal. 3. Status post recent hospitalization for lip cellulitis and urinary tract infection. Maintained on Keflex. 4. CKD mineral bone disorder 5. Hypertension with CKD stage IV 6. Volume overload 7. CHF acute on chronic with unknown ejection fraction Plan: Continue with current dose of Lasix Continue calcitriol Repeat labs in a.m. Monitor urine output closely Briefly discussed renal replacement therapy. At this time renal function is improving therefore we will continue to monitor. Thank you for the consultation. Will continue to follow the patient with you during her hospitalization.
[2023-03-22 11:30] LABS: Glucose,Whole Blood 218 mg/dL (70-110)
[2023-03-22] MEDS: IPRATROPIUM-ALBUTEROL 3 ML NEB INHALATION PRN (14:48)
[2023-03-22 16:21] LABS: Glucose,Whole Blood 162 mg/dL (70-110)
[2023-03-22] MEDS: AZITHROMYCIN 500 MG in SODIUM CHLORIDE 0.9% 250 ML IVPB SCH (17:20)
[2023-03-22] MEDS ORDERED: NITROGLYCERIN OINT 1 INCH/GM PACKET TOPICAL SCH (18:00)
[2023-03-22 20:19] LABS: Glucose,Whole Blood 225 mg/dL (70-110)
[2023-03-22] MEDS: INSULIN DETEMIR (LEVEMIR) 100 UNIT/ML SYR SQ SCH (20:46)
[2023-03-22] MEDS: oxyCODONE-APAP 10-325MG 1 EACH TAB PO PRN (20:47)
[2023-03-22] MEDS: DULoxetine HCL 60 MG CAPSULE.DR PO SCH (20:48)
[2023-03-22] MEDS: LATANOPROST 0.005% OPHTH DROPS 2.5 ML BTL BOTH EYES SCH (20:48)
[2023-03-22] MEDS: NON FORMULARY DRUG (Rosuvastatin Calcium [Rosuvastatin Calcium] 5 MG Tablet) PO SCH (20:49)
--- NOTE | 2023-03-22 22:04 | P.PN ---
Subjective Progress Note Date: 03/22/23 Patient is a 77-year-old female with a past medical history of coronary artery disease status post stent placement, hypertension, diabetes type 2 insulin- dependent, history of GI bleed, osteoarthritis, chronic back pain, depression prior history of smoking presents to ER with complaints of generalized weakness and shortness of breath. Patient states that she was released from [facility] yesterday. She was admitted overnight for lip cellulitis as well as urinary tract infection. Patient is currently on Keflex for urinary tract infection. Patient went home and felt very weak and unable to get out of the bed With the help of her daughter. She became more short of breath especially with exertion. Denies any chest pain or palpitations. No nausea vomiting or diarrhea. No fever no chills. Chest x-ray showed low lung volumes with generalized hazy appearance which could represent atelectasis versus pulmonary edema correlate with serum BNP. EKG showed atrial fibrillation with low voltage QRS. Ventricular rate 88. Laboratory data showed WBC 10.8 hemoglobin 11.5 and platelets 306 D-dimer 2.41, sodium 135 potassium 4.5 chloride 103 BUN 53 and creatinine 2.61 and blood sugar 177 AST 38 ALT 47 alk phos 101 troponin x 1 [place] [address] Influenza A detected. 03/22/2023 Patient is lying in the bed. Awake and alert seems to be lethargic. Able to open her eyes with verbal stimuli and follows simple commands. No complaints of chest pain. Shortness of breath is improving. Currently on room air. Otherwise patient has been afebrile. No nausea or vomiting.. Oral input is minimal. Leg swelling is much improved. Repeat chest x-ray this morning showed hypoventilatory changes with ongoing mild pulmonary vascular congestion. Patchy densities have increased at the lung base. CT head showed suggestion of mild chronic appearing periventricular white matter ischemic changes. No acute intracranial process. Laboratory showed WBC 10.5 hemoglobin 11.4 and platelets 234 BUN 49 creatinine 2.49, A1c 7.9 and calcium 7.8. Patient is being continued on IV Lasix changed to twice daily. Current medications reviewed. Objective - Vital Signs Vital signs: Vital Signs Temp 97.3 F L 03/22/23 11:59 Pulse 74 03/22/23 11:59 Resp 18 03/22/23 11:59 BP 110/54 03/22/23 11:59 Pulse Ox 100 03/22/23 11:59 FiO2 Intake & Output 03/21/23 03/22/23 03/22/23 18:59 06:59 18:59 Intake Total 118 110 Output Total 1200 Balance 118 -1200 110 Weight 86.183 kg 91 kg 91 kg Intake: Oral 118 110 Output: Urine 1200 Other: Voiding Method External Catheter Toilet External Catheter # Voids 1 1 - Exam PHYSICAL EXAMINATION: Patient is lying in the bed , no acute distress, awake alert but patient is lethargic and drowsy... HEENT: Normocephalic. Neck is supple. Pupils reactive. Nostrils clear. Oral cavity is moist. Neck reveals no JVD, carotid bruits, or thyromegaly. CHEST EXAMINATION: Trachea is central. Symmetrical expansion. Bibasilar diminished sounds and scattered coarse sounds.. Nonlabored breathing. CARDIAC: Normal S1, S2 with no gallops. No murmurs ABDOMEN: Soft. Bowel sounds present. Nontender. No organomegaly. No abdominal bruits. Extremities: reveal no edema. No clubbing or cyanosis Neurologically awake, alert, oriented x2-3. No gross focal deficits noted Skin: No rash or skin lesions. Psychiatric: Coperative. Could not patient is completely, Musculoskeletal: No joint swelling or deformity. - Labs CBC & Chem 7: 03/22/23 07:38 03/22/23 07:38 Labs: Abnormal Lab Results - Last 24 Hours (Table) 03/21/23 03/21/23 03/21/23 Range/Units 13:56 13:56 13:56 WBC 10.8 H (3.8-10.6) k/uL RDW (11.5-15.5) % Neutrophils # 9.3 H (1.3-7.7) k/uL Lymphocytes # 0.6 L (1.0-4.8) k/uL D-Dimer 2.41 H (<0.60) mg/L FEU Sodium 135 L (137-145) mmol/L Carbon Dioxide 21 L (22-30) mmol/L BUN 53 H (7-17) mg/dL Creatinine 2.61 H (0.52-1.04) mg/dL Glucose 177 H (74-99) mg/dL POC Glucose (mg/dL) (70-110) mg/dL Hemoglobin A1c (<=6.0) % Calcium 7.8 L (8.4-10.2) mg/dL AST 38 H (14-36) U/L ALT 47 H (4-34) U/L Albumin 3.4 L (3.5-5.0) g/dL Procalcitonin (0.02-0.09) ng/mL Urine Protein (Negative) Urine Glucose (UA) (Negative) Urine Blood (Negative) Influenza Type A (PCR) (Not Detectd) 03/21/23 03/21/23 03/21/23 Range/Units 13:56 17:11 19:58 WBC (3.8-10.6) k/uL RDW (11.5-15.5) % Neutrophils # (1.3-7.7) k/uL Lymphocytes # (1.0-4.8) k/uL D-Dimer (<0.60) mg/L FEU Sodium (137-145) mmol/L Carbon Dioxide (22-30) mmol/L BUN (7-17) mg/dL Creatinine (0.52-1.04) mg/dL Glucose (74-99) mg/dL POC Glucose (mg/dL) 147 H 159 H (70-110) mg/dL Hemoglobin A1c (<=6.0) % Calcium (8.4-10.2) mg/dL AST (14-36) U/L ALT (4-34) U/L Albumin (3.5-5.0) g/dL Procalcitonin (0.02-0.09) ng/mL Urine Protein (Negative) Urine Glucose (UA) (Negative) Urine Blood (Negative) Influenza Type A (PCR) Detected A (Not Detectd) 03/22/23 03/22/23 03/22/23 Range/Units 00:59 05:23 06:05 WBC (3.8-10.6) k/uL RDW (11.5-15.5) % Neutrophils # (1.3-7.7) k/uL Lymphocytes # (1.0-4.8) k/uL D-Dimer (<0.60) mg/L FEU Sodium (137-145) mmol/L Carbon Dioxide (22-30) mmol/L BUN (7-17) mg/dL Creatinine (0.52-1.04) mg/dL Glucose (74-99) mg/dL POC Glucose (mg/dL) 156 H (70-110) mg/dL Hemoglobin A1c (<=6.0) % Calcium (8.4-10.2) mg/dL AST (14-36) U/L ALT (4-34) U/L Albumin (3.5-5.0) g/dL Procalcitonin 0.22 H (0.02-0.09) ng/mL Urine Protein 3+ H (Negative) Urine Glucose (UA) 3+ H (Negative) Urine Blood Trace H (Negative) Influenza Type A (PCR) (Not Detectd) 03/22/23 03/22/23 03/22/23 Range/Units 07:38 07:38 07:38 WBC (3.8-10.6) k/uL RDW 15.7 H (11.5-15.5) % Neutrophils # 9.3 H (1.3-7.7) k/uL Lymphocytes # 0.5 L (1.0-4.8) k/uL D-Dimer (<0.60) mg/L FEU Sodium 134 L (137-145) mmol/L Carbon Dioxide (22-30) mmol/L BUN 49 H (7-17) mg/dL Creatinine 2.49 H (0.52-1.04) mg/dL Glucose 167 H (74-99) mg/dL POC Glucose (mg/dL) (70-110) mg/dL Hemoglobin A1c 7.9 H (<=6.0) % Calcium 7.8 L (8.4-10.2) mg/dL AST (14-36) U/L ALT (4-34) U/L Albumin (3.5-5.0) g/dL Procalcitonin (0.02-0.09) ng/mL Urine Protein (Negative) Urine Glucose (UA) (Negative) Urine Blood (Negative) Influenza Type A (PCR) (Not Detectd) 03/22/23 Range/Units 11:29 WBC (3.8-10.6) k/uL RDW (11.5-15.5) % Neutrophils # (1.3-7.7) k/uL Lymphocytes # (1.0-4.8) k/uL D-Dimer (<0.60) mg/L FEU Sodium (137-145) mmol/L Carbon Dioxide (22-30) mmol/L BUN (7-17) mg/dL Creatinine (0.52-1.04) mg/dL Glucose (74-99) mg/dL POC Glucose (mg/dL) 218 H (70-110) mg/dL Hemoglobin A1c (<=6.0) % Calcium (8.4-10.2) mg/dL AST (14-36) U/L ALT (4-34) U/L Albumin (3.5-5.0) g/dL Procalcitonin (0.02-0.09) ng/mL Urine Protein (Negative) Urine Glucose (UA) (Negative) Urine Blood (Negative) Influenza Type A (PCR) (Not Detectd) Assessment and Plan Assessment: Acute influenza A infection Possible bacterial pneumonia. Chest x-ray showed patchy densities have increased to the lung base. Procalcitonin level 0.22. Acute CHF. Ejection fraction not known. Atrial fibrillation. New onset. Heart rate controlled. Acute on chronic renal disease stage IV. Baseline creatinine 1.8 and creatinine 2.61 on admission History of GI bleed in June 2022 Coronary artery disease with history of stent placement on 05/11/2021 Diabetes type 2 insulin-dependent Uncontrolled hypertension GERD History of MS Osteoarthritis Depression Prior history of smoking Chronic back pain DVT prophylaxis with heparin subcu. GI prophylax with PPI Plan: Patient will be continued on telemonitoring. Continue with IV diuresis and monitor renal function closely. Patient was started back on blood pressure medications Coreg, nifedipine. Currently insulin sliding scale and Levemir. Patient was started on Tamiflu 30 mg. Day 1 out of 5 Continue with antibiotics ceftriaxone azithromycin for 5 days. Encourage incentive spirometry Patient does not want to be anticoagulated due to history of prior GI bleed. Cardiology was consulted for evaluation. Continue to follow closely. Prognosis is guarded. Time with Patient: Greater than 30
[2023-03-22] MEDS: BENZOCAINE/MENTHOL LOZENG 1 EACH LOZENGE MUCOUS MEM PRN (22:20)
[2023-03-22] MEDS: OSELTAMIVIR 60 MG/10 ML ORAL SYRINGE PO SCH (22:25)
[2023-03-23] MEDS: IPRATROPIUM-ALBUTEROL 3 ML NEB INHALATION PRN ×5 (03:46→20:59)
[2023-03-23] MEDS: oxyCODONE-APAP 10-325MG 1 EACH TAB PO PRN ×2 (05:04→21:54)
[2023-03-23] MEDS: FUROSEMIDE 10 MG/ML 4 ML VIAL IV SCH (05:04)
[2023-03-23 06:07] LABS: Glucose,Whole Blood 113 mg/dL (70-110)
[2023-03-23] MEDS: INSULIN ASPART (NovoLOG) 100 UNIT/ML VIAL SQ SCH ×4 (06:09→21:03)
[2023-03-23] MEDS: PANTOPRAZOLE 40 MG TABLET PO SCH (06:38)
[2023-03-23] MEDS: carvediloL 12.5 MG TAB PO SCH ×2 (06:38→17:25)
[2023-03-23 07:47] LABS: Basophils % (A) 0 %; Eosinophils # (A) 0.2 k/uL (0-0.7); Eosinophils % (A) 4 %; HCT 33.2 % (34.0-46.0); HGB 10.5 gm/dL (11.4-16.0); Hypochromasia Moderate; Lymphocytes # (A) 0.5 k/uL (1.0-4.8); Lymphocytes % (A) 8 %; MCH 29.9 pg (25.0-35.0); MCHC 31.8 g/dL (31.0-37.0); Mean Platelet Volume 7.7; Monocytes # (A) 0.4 k/uL (0-1.0); Monocytes % (A) 6 %; Neutrophils # (A) 4.9 k/uL (1.3-7.7); Neutrophils % (A) 81 %; Platelet Count 217 k/uL (150-450); RBC 3.53 m/uL (3.80-5.40); RDW 15.6 % (11.5-15.5); WBC 6.1 k/uL (3.8-10.6)
[2023-03-23 07:53] LABS: African American GFR (CKD) 17 (>60 ml/min/1.73 sqM); Anion Gap 4 mmol/L; Blood Urea Nitrogen 49 mg/dL (7-17); Calcium 7.7 mg/dL (8.4-10.2); Carbon Dioxide 29 mmol/L (22-30); Chloride 101 mmol/L (98-107); Glucose 99 mg/dL (74-99); Non-African American GFR(CKD) 15 (>60 ml/min/1.73 sqM); Sodium 134 mmol/L (137-145)
[2023-03-23] MEDS: hydrALAZINE HCL 25 MG TAB PO SCH ×3 (09:11→21:04)
[2023-03-23] MEDS: ISOSORBIDE MONONITRATE ER 60 MG TAB.ER.24H PO SCH (09:11)
[2023-03-23] MEDS: NIFEdipine XL 30 MG TAB.ER.24 PO SCH (09:11)
[2023-03-23] MEDS: ASPIRIN 81 MG PO SCH (09:11)
[2023-03-23] MEDS: HEPARIN SODIUM,PORCINE 5,000 UNIT/ML 1 ML VIAL SQ SCH ×2 (09:11→21:03)
[2023-03-23] MEDS: LORATADINE 10 MG TAB PO SCH (09:11)
[2023-03-23] MEDS: GABAPENTIN 100 MG CAP PO SCH ×2 (09:11→21:04)
[2023-03-23] MEDS: CLOPIDOGREL 75 MG TAB PO SCH (09:11)
[2023-03-23] MEDS: TIMOLOL 0.25% OPHTH DROPS 5 ML BTL BOTH EYES SCH ×2 (09:12→21:04)
--- NOTE | 2023-03-23 10:26 | CA ---
Transthoracic Echo Report Name: Cinthia Anderson Age: 77 Gender: F : 1945 Exam Date: 03/22/2023 11:31 Exam Location: [facility] Ht (in): 64 Wt (lb): 200 Ordering Physician: Monalisa Dickerson Attending/Referring Phys: [id number], Tuan [employer] Suellen Gonzalez Procedure CPT: Indications: LV function, CHF, influenza A Cardiac Hx: Technical Quality: Fair Contrast 1: Total Dose (mL): Contrast 2: Total Dose (mL): MEASUREMENTS (Male / Female) Normal Values 2D ECHO LV Diastolic Diameter PLAX 4.7 cm 4.2 - 5.9 / 3.9 - 5.3 cm LV Systolic Diameter PLAX 3.3 cm IVS Diastolic Thickness 1.4 cm 0.6 - 1.0 / 0.6 - 0.9 cm LVPW Diastolic Thickness 1.2 cm 0.6 - 1.0 / 0.6 - 0.9 cm LV Relative Wall Thickness 0.5 RV Internal Dim ED PLAX 3.0 cm LVOT Diameter 2.0 cm Aortic Root Diameter 2.7 cm LA Systolic Diameter LX 2.9 cm 3.0 - 4.0 / 2.7 - 3.8 cm LV Diastolic Volume MOD BP 37.8 cm??? 67 - 155 / 56 - 104 cm??? LV Systolic Volume MOD BP 20.7 cm??? 22 - 58 / 19 - 49 cm??? LV Ejection Fraction MOD BP 45.1 % >= 55 % LV Cardiac Index MOD BP 579.6 cm???/min???m??? LV Diastolic Volume MOD 4C 42.6 cm??? LV Systolic Volume MOD 4C 25.1 cm??? LV Ejection Fraction MOD 4C 41.1 % LV Cardiac Index MOD 4C 593.9 cm???/min???m??? LV Diastolic Length 4C 5.9 cm LV Systolic Length 4C 5.3 cm LV Diastolic Volume MOD 2C 32.9 cm??? LV Systolic Volume MOD 2C 16.7 cm??? LV Ejection Fraction MOD 2C 49.4 % LV Cardiac Index MOD 2C 552.4 cm???/min???m??? LV Diastolic Length 2C 5.7 cm LV Systolic Length 2C 5.5 cm LA Volume 44.0 cm??? 18 - 58 / 22 - 52 cm??? LA Volume Index 21.3 cm???/m??? 16 - 28 cm???/m??? Ascending Aorta Diameter 2.7 cm DOPPLER AV Peak Velocity 108.6 cm/s AV Peak Gradient 4.7 mmHg AI Peak Velocity 257.8 cm/s AI Peak Gradient 26.6 mmHg AI Pressure Half Time 492.0 ms LVOT Peak Velocity 74.9 cm/s LVOT Peak Gradient 2.2 mmHg LVOT Velocity Time Integral 15.1 cm LVOT Stroke Volume 47.3 cm??? LVOT Stroke Volume Index 24.2 ml/m??? LVOT Cardiac Index 1606.3 cm???/min???m??? AV Area Cont Eq pk 2.2 cm??? MV Peak Velocity 103.1 cm/s MV Peak Gradient 4.3 mmHg MV Mean Velocity 50.1 cm/s MV Mean Gradient 1.4 mmHg MV Velocity Time Integral 22.5 cm MR Peak Velocity 381.3 cm/s MR Peak Gradient 58.2 mmHg Mitral E Point Velocity 90.2 cm/s Mitral A Point Velocity 29.8 cm/s Mitral E to A Ratio 3.0 MV Deceleration Time 229.3 ms TR Peak Velocity 247.5 cm/s TR Peak Gradient 24.5 mmHg Right Ventricular Systolic Press 34.5 mmHg PV Peak Velocity 72.8 cm/s PV Peak Gradient 2.1 mmHg FINDINGS Left Ventricle Normal LV size. Mild to moderate concentric LVH. Left ventricular ejection fraction is estimated at 50-55 %. Right Ventricle Dilated RV. RVSP= 34mmHg. Right Atrium Mild right atrial dilatation. Left Atrium Mild left atrial dilatation. LA volume index= 22ml/m2 Mitral Valve Structurally normal mitral valve. Moderate MR. Aortic Valve Trileaflet aortic valve. Mild to moderate calcification. Mild to moderate AI. Tricuspid Valve Structurally normal tricuspid valve. Moderate to severe TR. Pulmonic Valve Pulmonic valve not well visualized. No pulmonic regurgitation. Pericardium Normal pericardium. Aorta Normal size aortic root. CONCLUSIONS Technically difficult study for interpretation Normal LV systolic function Moderate mitral regurgitation Mild to moderate aortic insufficiency Mild pulmonary hypertension Dilated right ventricle Moderate tricuspid regurgitation Previewed by: Dr. Ike Quintero MD (Electronically Signed) Final Date: 23 March 2023 10:25
--- NOTE | 2023-03-23 11:23 | P.PN ---
Subjective Patient is seen for follow-up for chronic kidney disease and Stage IV. She is admitted to the hospital with weakness, shortness of breath and volume overload. Patient was maintained on IV Lasix. She has diuresed with improvement in volume status. Shortness of breath has improved. Weight is down by about 2 kg Serum creatinine has increased to 2.8 mg/dL. Patient's serum creatinine as outpatient was around 3 mg/dL prior to admission. Objective - Vital Signs Vital signs: Vital Signs Temp 96.3 F L 03/23/23 08:00 Pulse 80 03/23/23 08:06 Resp 16 03/23/23 08:00 BP 101/60 03/23/23 08:00 Pulse Ox 98 03/23/23 08:00 FiO2 Intake & Output 03/22/23 03/23/23 03/23/23 18:59 06:59 18:59 Intake Total 220 10 123 Output Total 1000 400 Balance -780 -390 123 Weight 91 kg 88.5 kg Intake: IV 10 5 Invasive Line 2 10 5 Oral 220 0 118 Output: Urine 1000 400 Other: Voiding Method Toilet Toilet Toilet External Catheter External Catheter - Exam Patient is awake, comfortable, no acute distress Examination of the heart S1 and S2 Examination of the lungs bilateral breath sounds are heard Abdomen is soft nontender Examination lower extremity shows edema 2+ bilaterally MEDICATION SPECIALIST exam grossly intact - Labs CBC & Chem 7: 03/23/23 07:05 03/23/23 07:05 Labs: Abnormal Lab Results - Last 24 Hours (Table) 03/22/23 03/22/23 03/22/23 Range/Units 11:29 16:17 20:18 RBC (3.80-5.40) m/uL Hgb (11.4-16.0) gm/dL Hct (34.0-46.0) % RDW (11.5-15.5) % Lymphocytes # (1.0-4.8) k/uL Sodium (137-145) mmol/L BUN (7-17) mg/dL Creatinine (0.52-1.04) mg/dL POC Glucose (mg/dL) 218 H 162 H 225 H (70-110) mg/dL Calcium (8.4-10.2) mg/dL 03/23/23 03/23/23 03/23/23 Range/Units 06:05 07:05 07:05 RBC 3.53 L (3.80-5.40) m/uL Hgb 10.5 L (11.4-16.0) gm/dL Hct 33.2 L (34.0-46.0) % RDW 15.6 H (11.5-15.5) % Lymphocytes # 0.5 L (1.0-4.8) k/uL Sodium 134 L (137-145) mmol/L BUN 49 H (7-17) mg/dL Creatinine 2.87 H (0.52-1.04) mg/dL POC Glucose (mg/dL) 113 H (70-110) mg/dL Calcium 7.7 L (8.4-10.2) mg/dL Assessment and Plan Assessment: 1. Chronic kidney disease and Stage IV with baseline creatinine recently around 3 mg/dL with plans for preparation for renal replacement therapy as outpatient. Serum creatinine this admission was 2.6 and decreased to 2.4. It is 2.8 today with diuresis.. Currently patient is being diuresed. 2. Component of acute kidney injury mostly cardiorenal. 3. Status post recent hospitalization for lip cellulitis and urinary tract infection. Maintained on Keflex. 4. CKD mineral bone disorder 5. Hypertension with CKD stage IV 6. Volume overload 7. CHF acute on chronic with ejection fraction of 50 to 55% 8. Influenza A infection Plan: IV Lasix has been switched to oral Bumex which we can continue for now. Patient remains with significant edema but improved from yesterday. Continue calcitriol Repeat labs in a.m. Monitor urine output closely Briefly discussed renal replacement therapy if renal function continues to worsen with no improvement in volume status.
[2023-03-23 11:49] LABS: Glucose,Whole Blood 192 mg/dL (70-110)
--- NOTE | 2023-03-23 12:32 | P.PN ---
Subjective HISTORY OF PRESENT ILLNESS: This is a 77-year-old female with a past medical history significant for hypertension, hyperlipidemia, atrial fibrillation, congestive heart failure, GI bleed, coronary artery disease with previous stenting, and recent Watchman device. Patient follows with a buffing wheel presser at [facility]. We have been asked to see the patient in consultation for congestive heart failure. Patient examined at the bedside. Patient's daughter is at the bedside and providing the majority of the history as the patient is feeling unwell this morning. Patient's daughter states that she was hospitalized at [facility] a couple days ago for cellulitis of the lip versus angioedema. She was treated with antibiotic therapy. She also reports she had altered mental status at that time and was treated for urinary tract infection. She was discharged home in stable condition. The daughter states yesterday the patient became very weak and lethargic and was feeling generally unwell. They state that she was complaining of shortness of breath. She was brought to the emergency room for further evaluation. She was found to be positive for influenza A. Patient does report shortness of breath this morning. She denies any chest pain or pressure. Telemetry reveals atrial fibrillation with controlled ventricular rate. Patien t's blood pressures have been elevated since admission with systolics ranging between [id number]. The patient's daughter reports that she had a Watchman procedure performed at [facility] approximately 5 months ago. She states that she was told to continue her Aspirin and Plavix for 1 more month by her buffing wheel presser. She denies ever having an ablation or cardioversion. She does report having stents in her heart with the last one being placed in 2021. She denies any history of cardiomyopathy to her knowledge. DIAGNOSTICS: EKG reveals atrial fibrillation with controlled ventricular rate Chest xray low lung volumes with generalized hazy appearance which could represent atelectasis versus pulmonary edema Laboratory data: WBC 10.5. Hemoglobin 11.4. Platelet count 234. Sodium 134. Potassium 3.8. BUN 49. Creatinine 2.49. Troponin negative x 1. proBNP 20,100. Current home cardiac medications include carvedilol 6.25 mg at night and 12.5 mg in the morning, rosuvastatin 5 mg at night, nifedipine 30 mg daily, metoprolol succinate 50 mg daily, Imdur 60 mg daily, Plavix 75 mg daily, Bumex 1 mg twice a day, and aspirin 81 mg daily August 22, 2023 Patient examined this morning. She sitting up in the chair. There is no family present. Patient clinically appears to be improving today. She denies any chest pain or pressure. She currently denies shortness of breath. Remains on IV diuretics. Vital signs are stable. Telemetry reveals atrial fibrillation with controlled ventricular rate. Blood pressure stable. Most recent reading 101/60. She is afebrile. Echocardiogram completed revealing ejection fraction 50 to 55%, mild to moderate aortic insufficiency, moderate MR, moderate to severe TR,, and mild pulmonary hypertension. Records from patient's primary buffing wheel presser, Dr. Mack, out of [facility] were received and have been reviewed. The patient did have an echocardiogram performed in 2021 with an EF of 35 to 40%, akinetic inferior septal and anterior septal wall, hypokinetic apex, and mild MR. She underwent cardiac catheterization in May 11, 2021 with PCI to the proximal LAD and ostial LAD. She also underwent stenting to the circumflex. She underwent repeat heart catheterization on May 13, 2021 with successful shockwave and PCI of the RCA. She underwent Watchman procedure in November 2022. She underwent MELISSA in December 2022 which revealed well-seated Watchman device questionable leak that was later ruled out. Ejection fraction 45%. PHYSICAL EXAM: VITAL SIGNS: Reviewed. GENERAL: Well-developed in no acute distress. HEENT: Head is normocephalic. Pupils are equal, round. Sclerae anicteric. Mucous membranes of the mouth are moist. Neck supple. No JVD or thyromegaly LUNGS: Respirations even and unlabored. Lungs diminished bilaterally. HEART: Irregular rate and rhythm. S1 and S2 heard. ABDOMEN: Soft. Nondistended. Nontender. EXTREMITIES: Normal range of motion. No clubbing or cyanosis. Peripheral pulses intact. 1-2+ bilateral lower extremity edema, improved from yesterday. NEUROLOGIC: Awake and alert. Oriented x 3. 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 Begin oral Bumex 1 mg twice a day Continue to monitor kidney function Continue additional cardiac medications Would benefit from Farxiga when AUDREY improves Continue with aspirin and Plavix at this time. Patient does not require anticoagulation due to recent Watchman procedure performed at [facility] Further recommendations pending patient course Nurse practitioner note has been reviewed by physician. Signing provider agrees with the documented findings, assessment, and plan of care documented by RADIO REPAIRER DOMESTIC as a scribe. Objective - Vital Signs Vital signs: Vital Signs Temp 96.3 F L 03/23/23 08:00 Pulse 80 03/23/23 08:06 Resp 16 03/23/23 08:00 BP 101/60 03/23/23 08:00 Pulse Ox 98 03/23/23 08:00 FiO2 Intake & Output 03/22/23 03/23/23 03/23/23 18:59 06:59 18:59 Intake Total 220 10 123 Output Total 1000 400 Balance -780 -390 123 Weight 91 kg 88.5 kg Intake: IV 10 5 Invasive Line 2 10 5 Oral 220 0 118 Output: Urine 1000 400 Other: Voiding Method Toilet Toilet Toilet External Catheter External Catheter - Labs CBC & Chem 7: 03/23/23 07:05 03/23/23 07:05 Labs: Abnormal Lab Results - Last 24 Hours (Table) 03/22/23 03/22/23 03/22/23 Range/Units 07:38 11:29 16:17 RBC (3.80-5.40) m/uL Hgb (11.4-16.0) gm/dL Hct (34.0-46.0) % RDW (11.5-15.5) % Lymphocytes # (1.0-4.8) k/uL Sodium (137-145) mmol/L BUN (7-17) mg/dL Creatinine (0.52-1.04) mg/dL POC Glucose (mg/dL) 218 H 162 H (70-110) mg/dL Hemoglobin A1c 7.9 H (<=6.0) % Calcium (8.4-10.2) mg/dL 03/22/23 03/23/23 03/23/23 Range/Units 20:18 06:05 07:05 RBC (3.80-5.40) m/uL Hgb (11.4-16.0) gm/dL Hct (34.0-46.0) % RDW (11.5-15.5) % Lymphocytes # (1.0-4.8) k/uL Sodium 134 L (137-145) mmol/L BUN 49 H (7-17) mg/dL Creatinine 2.87 H (0.52-1.04) mg/dL POC Glucose (mg/dL) 225 H 113 H (70-110) mg/dL Hemoglobin A1c (<=6.0) % Calcium 7.7 L (8.4-10.2) mg/dL 03/23/23 Range/Units 07:05 RBC 3.53 L (3.80-5.40) m/uL Hgb 10.5 L (11.4-16.0) gm/dL Hct 33.2 L (34.0-46.0) % RDW 15.6 H (11.5-15.5) % Lymphocytes # 0.5 L (1.0-4.8) k/uL Sodium (137-145) mmol/L BUN (7-17) mg/dL Creatinine (0.52-1.04) mg/dL POC Glucose (mg/dL) (70-110) mg/dL Hemoglobin A1c (<=6.0) % Calcium (8.4-10.2) mg/dL
[2023-03-23] MEDS: AZITHROMYCIN 500 MG in SODIUM CHLORIDE 0.9% 250 ML IVPB SCH (13:10)
[2023-03-23 16:59] LABS: Glucose,Whole Blood 261 mg/dL (70-110)
[2023-03-23] MEDS: BUMETANIDE 1 MG TAB PO SCH (17:25)
[2023-03-23 20:15] LABS: Glucose,Whole Blood 294 mg/dL (70-110)
[2023-03-23] MEDS: INSULIN DETEMIR (LEVEMIR) 100 UNIT/ML SYR SQ SCH (21:03)
[2023-03-23] MEDS: DULoxetine HCL 60 MG CAPSULE.DR PO SCH (21:03)
[2023-03-23] MEDS: NON FORMULARY DRUG (Rosuvastatin Calcium [Rosuvastatin Calcium] 5 MG Tablet) PO SCH (21:04)
[2023-03-23] MEDS: LATANOPROST 0.005% OPHTH DROPS 2.5 ML BTL BOTH EYES SCH (21:04)
[2023-03-23] MEDS ORDERED: BENZONATATE 100 MG CAP PO PRN (21:34)
[2023-03-23] MEDS: BENZOCAINE/MENTHOL LOZENG 1 EACH LOZENGE MUCOUS MEM PRN (21:54)
[2023-03-23] MEDS: OSELTAMIVIR 60 MG/10 ML ORAL SYRINGE PO SCH (21:55)
[2023-03-24] MEDS: carvediloL 12.5 MG TAB PO SCH ×2 (06:46→17:14)
[2023-03-24] MEDS: PANTOPRAZOLE 40 MG TABLET PO SCH (06:46)
[2023-03-24] MEDS: INSULIN ASPART (NovoLOG) 100 UNIT/ML VIAL SQ SCH ×7 (06:47→21:34)
[2023-03-24] MEDS: IPRATROPIUM-ALBUTEROL 3 ML NEB INHALATION PRN ×4 (09:13→22:10)
[2023-03-24 09:17] LABS: Basophils % (A) 1 %; Eosinophils # (A) 0.5 k/uL (0-0.7); Eosinophils % (A) 12 %; HCT 33.5 % (34.0-46.0); HGB 10.6 gm/dL (11.4-16.0); Hypochromasia Marked; Lymphocytes # (A) 0.7 k/uL (1.0-4.8); Lymphocytes % (A) 14 %; MCHC 31.5 g/dL (31.0-37.0); Mean Platelet Volume 8.5; Monocytes # (A) 0.3 k/uL (0-1.0); Monocytes % (A) 7 %; Neutrophils % (A) 64 %; Platelet Count 190 k/uL (150-450); RBC 3.52 m/uL (3.80-5.40); RDW 15.8 % (11.5-15.5); WBC 4.7 k/uL (3.8-10.6)
[2023-03-24] MEDS: oxyCODONE-APAP 10-325MG 1 EACH TAB PO PRN ×2 (09:44→21:40)
[2023-03-24] MEDS: HEPARIN SODIUM,PORCINE 5,000 UNIT/ML 1 ML VIAL SQ SCH ×2 (09:45→21:34)
[2023-03-24] MEDS: ISOSORBIDE MONONITRATE ER 60 MG TAB.ER.24H PO SCH (09:45)
[2023-03-24] MEDS: hydrALAZINE HCL 25 MG TAB PO SCH ×3 (09:45→21:34)
[2023-03-24] MEDS: BUMETANIDE 1 MG TAB PO SCH ×2 (09:45→16:07)
[2023-03-24] MEDS: GABAPENTIN 100 MG CAP PO SCH ×2 (09:45→21:34)
[2023-03-24] MEDS: NIFEdipine XL 30 MG TAB.ER.24 PO SCH (09:45)
[2023-03-24] MEDS: ASPIRIN 81 MG PO SCH (09:45)
[2023-03-24] MEDS: LORATADINE 10 MG TAB PO SCH (09:45)
[2023-03-24] MEDS: CLOPIDOGREL 75 MG TAB PO SCH (09:45)
[2023-03-24] MEDS: TIMOLOL 0.25% OPHTH DROPS 5 ML BTL BOTH EYES SCH ×2 (09:46→21:35)
[2023-03-24 10:12] LABS: African American GFR (CKD) 16 (>60 ml/min/1.73 sqM); Anion Gap 8 mmol/L; Blood Urea Nitrogen 48 mg/dL (7-17); Calcium 7.5 mg/dL (8.4-10.2); Carbon Dioxide 27 mmol/L (22-30); Chloride 101 mmol/L (98-107); Glucose 198 mg/dL (74-99); Non-African American GFR(CKD) 14 (>60 ml/min/1.73 sqM); Potassium 4.4 mmol/L (3.5-5.1); Sodium 136 mmol/L (137-145)
[2023-03-24 11:50] LABS: Glucose,Whole Blood 217 mg/dL (70-110)
[2023-03-24] MEDS: AZITHROMYCIN 500 MG in SODIUM CHLORIDE 0.9% 250 ML IVPB SCH (11:58)
--- NOTE | 2023-03-24 13:28 | P.PN ---
Subjective HISTORY OF PRESENT ILLNESS: This is a 77-year-old female with a past medical history significant for hypertension, hyperlipidemia, atrial fibrillation, congestive heart failure, GI bleed, coronary artery disease with previous stenting, and recent Watchman device. Patient follows with a community planning technician at [facility]. We have been asked to see the patient in consultation for congestive heart failure. Patient examined at the bedside. Patient's daughter is at the bedside and providing the majority of the history as the patient is feeling unwell this morning. Patient's daughter states that she was hospitalized at [facility] a couple days ago for cellulitis of the lip versus angioedema. She was treated with antibiotic therapy. She also reports she had altered mental status at that time and was treated for urinary tract infection. She was discharged home in stable condition. The daughter states yesterday the patient became very weak and lethargic and was feeling generally unwell. They state that she was complaining of shortness of breath. She was brought to the emergency room for further evaluation. She was found to be positive for influenza A. Patient does report shortness of breath this morning. She denies any chest pain or pressure. Telemetry reveals atrial fibrillation with controlled ventricular rate. Patien t's blood pressures have been elevated since admission with systolics ranging between [id number]. The patient's daughter reports that she had a Watchman procedure performed at [facility] approximately 5 months ago. She states that she was told to continue her Aspirin and Plavix for 1 more month by her community planning technician. She denies ever having an ablation or cardioversion. She does report having stents in her heart with the last one being placed in 2021. She denies any history of cardiomyopathy to her knowledge. DIAGNOSTICS: EKG reveals atrial fibrillation with controlled ventricular rate Chest xray low lung volumes with generalized hazy appearance which could represent atelectasis versus pulmonary edema Laboratory data: WBC 10.5. Hemoglobin 11.4. Platelet count 234. Sodium 134. Potassium 3.8. BUN 49. Creatinine 2.49. Troponin negative x 1. proBNP 20,100. Current home cardiac medications include carvedilol 6.25 mg at night and 12.5 mg in the morning, rosuvastatin 5 mg at night, nifedipine 30 mg daily, metoprolol succinate 50 mg daily, Imdur 60 mg daily, Plavix 75 mg daily, Bumex 1 mg twice a day, and aspirin 81 mg daily August 22, 2023 Patient examined this morning. She sitting up in the chair. There is no family present. Patient clinically appears to be improving today. She denies any chest pain or pressure. She currently denies shortness of breath. Remains on IV diuretics. Vital signs are stable. Telemetry reveals atrial fibrillation with controlled ventricular rate. Blood pressure stable. Most recent reading 101/60. She is afebrile. Echocardiogram completed revealing ejection fraction 50 to 55%, mild to moderate aortic insufficiency, moderate MR, moderate to severe TR,, and mild pulmonary hypertension. Records from patient's primary community planning technician, Dr. Mack, out of [facility] were received and have been reviewed. The patient did have an echocardiogram performed in 2021 with an EF of 35 to 40%, akinetic inferior septal and anterior septal wall, hypokinetic apex, and mild MR. She underwent cardiac catheterization in May 11, 2021 with PCI to the proximal LAD and ostial LAD. She also underwent stenting to the circumflex. She underwent repeat heart catheterization on May 13, 2021 with successful shockwave and PCI of the RCA. She underwent Watchman procedure in November 2022. She underwent MELISSA in December 2022 which revealed well-seated Watchman device questionable leak that was later ruled out. Ejection fraction 45%. March 24, 2023 Patient examined this morning at the bedside. Patient currently denies chest pain or pressure. She denies shortness of breath at the time examination. She continues to report a frequent nonproductive cough. Bedside telemetry reveals atrial fibrillation with a heart in the 80s. Creatinine today 3.07. PHYSICAL EXAM: VITAL SIGNS: Reviewed. GENERAL: Well-developed in no acute distress. HEENT: Head is normocephalic. Pupils are equal, round. Sclerae anicteric. Mucous membranes of the mouth are moist. Neck supple. No JVD or thyromegaly LUNGS: Respirations even and unlabored. Lungs diminished bilaterally. HEART: Irregular rate and rhythm. S1 and S2 heard. ABDOMEN: Soft. Nondistended. Nontender. EXTREMITIES: Normal range of motion. No clubbing or cyanosis. Peripheral pulses intact. 1-2+ bilateral lower extremity edema, improved from yesterday. NEUROLOGIC: Awake and alert. Oriented x 3. 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 Patient does not require anticoa gulation due to recent Watchman procedure performed at [facility] Further recommendations pending patient course Nurse practitioner note has been reviewed by physician. Signing provider agrees with the documented findings, assessment, and plan of care documented by PLANT OPERATIONS MANAGER as a scribe. Objective - Vital Signs Vital signs: Vital Signs Temp 97.5 F L 03/24/23 09:39 Pulse 74 03/24/23 13:14 Resp 16 03/24/23 12:02 BP 131/64 03/24/23 12:02 Pulse Ox 99 03/24/23 12:02 FiO2 Intake & Output 03/23/23 03/24/23 03/24/23 18:59 06:59 18:59 Intake Total 364 100 240 Output Total 600 Balance 364 -500 240 Weight 86.5 kg Intake: IV 10 Invasive Line 2 10 Oral 354 100 240 Output: Urine 600 Other: Voiding Method Toilet Toilet Toilet - Labs CBC & Chem 7: 03/24/23 08:45 03/24/23 08:45 Labs: Abnormal Lab Results - Last 24 Hours (Table) 03/23/23 03/23/23 03/24/23 Range/Units 16:57 20:13 08:45 RBC (3.80-5.40) m/uL Hgb (11.4-16.0) gm/dL Hct (34.0-46.0) % RDW (11.5-15.5) % Lymphocytes # (1.0-4.8) k/uL Sodium 136 L (137-145) mmol/L BUN 48 H (7-17) mg/dL Creatinine 3.07 H (0.52-1.04) mg/dL Glucose 198 H (74-99) mg/dL POC Glucose (mg/dL) 261 H 294 H (70-110) mg/dL Calcium 7.5 L (8.4-10.2) mg/dL 03/24/23 03/24/23 Range/Units 08:45 11:45 RBC 3.52 L (3.80-5.40) m/uL Hgb 10.6 L (11.4-16.0) gm/dL Hct 33.5 L (34.0-46.0) % RDW 15.8 H (11.5-15.5) % Lymphocytes # 0.7 L (1.0-4.8) k/uL Sodium (137-145) mmol/L BUN (7-17) mg/dL Creatinine (0.52-1.04) mg/dL Glucose (74-99) mg/dL POC Glucose (mg/dL) 217 H (70-110) mg/dL Calcium (8.4-10.2) mg/dL
[2023-03-24 16:45] LABS: Glucose,Whole Blood 83 mg/dL (70-110)
[2023-03-24 17:04] LABS: Glucose,Whole Blood 247 mg/dL (70-110)
--- NOTE | 2023-03-24 19:08 | P.PN ---
Subjective Patient is seen for follow-up for chronic kidney disease and Stage IV. She is admitted to the hospital with weakness, shortness of breath and volume overload. Patient was maintained on IV Lasix. She has diuresed with improvement in volume status. Shortness of breath has improved. Weight is down. Serum creatinine has increased to 3.0 mg/dL. It was lower on initial admission secondary to significant volume overload. Patient's serum creatinine as outpatient was around 3 mg/dL prior to admission. Overall feeling much better with improvement in fatigue as well. Objective - Vital Signs Vital signs: Vital Signs Temp 97.5 F L 03/24/23 09:39 Pulse 95 03/24/23 16:53 Resp 17 03/24/23 16:08 BP 130/60 03/24/23 16:08 Pulse Ox 98 03/24/23 16:08 FiO2 Intake & Output 03/24/23 03/24/23 03/25/23 06:59 18:59 06:59 Intake Total 100 480 Output Total 600 Balance -500 480 Weight 86.5 kg Intake: Oral 100 480 Output: Urine 600 Other: Voiding Method Toilet Toilet - Exam Patient is awake, comfortable, no acute distress Examination of the heart S1 and S2 Examination of the lungs bilateral breath sounds are heard Abdomen is soft nontender Examination lower extremity shows edema 1+ bilaterally MECHANIC CHIEF exam grossly intact - Labs CBC & Chem 7: 03/24/23 08:45 03/24/23 08:45 Labs: Abnormal Lab Results - Last 24 Hours (Table) 03/23/23 03/24/23 03/24/23 Range/Units 20:13 08:45 08:45 RBC 3.52 L (3.80-5.40) m/uL Hgb 10.6 L (11.4-16.0) gm/dL Hct 33.5 L (34.0-46.0) % RDW 15.8 H (11.5-15.5) % Lymphocytes # 0.7 L (1.0-4.8) k/uL Sodium 136 L (137-145) mmol/L BUN 48 H (7-17) mg/dL Creatinine 3.07 H (0.52-1.04) mg/dL Glucose 198 H (74-99) mg/dL POC Glucose (mg/dL) 294 H (70-110) mg/dL Calcium 7.5 L (8.4-10.2) mg/dL 03/24/23 03/24/23 Range/Units 11:45 16:57 RBC (3.80-5.40) m/uL Hgb (11.4-16.0) gm/dL Hct (34.0-46.0) % RDW (11.5-15.5) % Lymphocytes # (1.0-4.8) k/uL Sodium (137-145) mmol/L BUN (7-17) mg/dL Creatinine (0.52-1.04) mg/dL Glucose (74-99) mg/dL POC Glucose (mg/dL) 217 H 247 H (70-110) mg/dL Calcium (8.4-10.2) mg/dL Assessment and Plan Assessment: 1. Chronic kidney disease and Stage IV with baseline creatinine recently around 3 mg/dL with plans for preparation for renal replacement therapy as outpatient. Currently being diuresed. Diuretics have been switched to oral. 2. Component of acute kidney injury mostly cardiorenal. 3. Status post recent hospitalization for lip cellulitis and urinary tract infection. Maintained on Keflex. 4. CKD mineral bone disorder 5. Hypertension with CKD stage IV 6. Volume overload 7. CHF acute on chronic with ejection fraction of 50 to 55% 8. Influenza A infection Plan: Continue current dose of Bumex Continue calcitriol Repeat labs in a.m. Monitor urine output closely Can hold renal replacement therapy as volume status has improved with improvement in overall status. Serum creatinine is at baseline.
[2023-03-24 20:20] LABS: Glucose,Whole Blood 166 mg/dL (70-110)
[2023-03-24] MEDS: DULoxetine HCL 60 MG CAPSULE.DR PO SCH (21:34)
[2023-03-24] MEDS: INSULIN DETEMIR (LEVEMIR) 100 UNIT/ML SYR SQ SCH (21:34)
[2023-03-24] MEDS: LATANOPROST 0.005% OPHTH DROPS 2.5 ML BTL BOTH EYES SCH (21:35)
[2023-03-24] MEDS: OSELTAMIVIR 60 MG/10 ML ORAL SYRINGE PO SCH (21:55)
[2023-03-24] MEDS: NON FORMULARY DRUG (Rosuvastatin Calcium [Rosuvastatin Calcium] 5 MG Tablet) PO SCH (22:08)
--- NOTE | 2023-03-25 01:45 | P.PN ---
Subjective Progress Note Date: 03/23/23 Patient is a 77-year-old female with a past medical history of coronary artery disease status post stent placement, hypertension, diabetes type 2 insulin- dependent, history of GI bleed, osteoarthritis, chronic back pain, depression prior history of smoking presents to ER with complaints of generalized weakness and shortness of breath. Patient states that she was released from [facility] yesterday. She was admitted overnight for lip cellulitis as well as urinary tract infection. Patient is currently on Keflex for urinary tract infection. Patient went home and felt very weak and unable to get out of the bed With the help of her daughter. She became more short of breath especially with exertion. Denies any chest pain or palpitations. No nausea vomiting or diarrhea. No fever no chills. Chest x-ray showed low lung volumes with generalized hazy appearance which could represent atelectasis versus pulmonary edema correlate with serum BNP. EKG showed atrial fibrillation with low voltage QRS. Ventricular rate 88. Laboratory data showed WBC 10.8 hemoglobin 11.5 and platelets 306 D-dimer 2.41, sodium 135 potassium 4.5 chloride 103 BUN 53 and creatinine 2.61 and blood sugar 177 AST 38 ALT 47 alk phos 101 troponin x 1 [place] [id number] Influenza A detected. 03/22/2023 Patient is lying in the bed. Awake and alert seems to be lethargic. Able to open her eyes with verbal stimuli and follows simple commands. No complaints of chest pain. Shortness of breath is improving. Currently on room air. Otherwise patient has been afebrile. No nausea or vomiting.. Oral input is minimal. Leg swelling is much improved. Repeat chest x-ray this morning showed hypoventilatory changes with ongoing mild pulmonary vascular congestion. Patchy densities have increased at the lung base. CT head showed suggestion of mild chronic appearing periventricular white matter ischemic changes. No acute intracranial process. Laboratory showed WBC 10.5 hemoglobin 11.4 and platelets 234 BUN 49 creatinine 2.49, A1c 7.9 and calcium 7.8. Patient is being continued on IV Lasix changed to twice daily. 03/23/2023 Patient is currently able to sit in the chair. Seems to be more awake and oriented. No complaints of chest pain. Patient's pain is improving. No leg swelling. No nausea vomiting or abdominal pain or diarrhea. IV Lasix changed to Bumex p.o. Patient has been afebrile. Cough did improve. Patient remains on antibiotics and also on Tamiflu. Laboratory data showed WBC 6.1 hemoglobin 10.5 and platelets 217 BUN 49 creatinine 2.87 and calcium 7.7. Cardiology and nephrology is on board. 2D echocardiogram showed technically difficult study with normal LV systolic function. Moderate MR, mild to moderate AR and mild pulmonary hypertension and dilated right ventricle and moderate TR. Current medications reviewed. Objective - Vital Signs Vital signs: Vital Signs Temp 96 F L 03/23/23 16:00 Pulse 80 03/23/23 21:11 Resp 11 L 03/23/23 16:00 BP 128/70 03/23/23 16:00 Pulse Ox 96 03/23/23 16:00 FiO2 Intake & Output 03/23/23 03/23/23 03/24/23 06:59 18:59 06:59 Intake Total 10 364 100 Output Total 400 300 Balance -390 364 -200 Weight 88.5 kg Intake: IV 10 10 Invasive Line 2 10 10 Oral 0 354 100 Output: Urine 400 300 Other: Voiding Method Toilet Toilet External Catheter - Exam PHYSICAL EXAMINATION: Patient is lying in the bed , no acute distress, awake alert and oriented.. HEENT: Normocephalic. Neck is supple. Pupils reactive. Nostrils clear. Oral cavity is moist. Neck reveals no JVD, carotid bruits, or thyromegaly. CHEST EXAMINATION: Trachea is central. Symmetrical expansion. Bilateral improved air entry. Scattered coarse breath sounds... Nonlabored breathing. CARDIAC: Normal S1, S2 with no gallops. No murmurs ABDOMEN: Soft. Bowel sounds present. Nontender. No organomegaly. No abdominal bruits. Extremities: reveal no edema. No clubbing or cyanosis Neurologically awake, alert, oriented x2-3. No gross focal deficits noted Skin: No rash or skin lesions. Psychiatric: Coperative. , Musculoskeletal: No joint swelling or deformity. - Labs CBC & Chem 7: 03/24/23 08:45 03/24/23 08:45 Labs: Abnormal Lab Results - Last 24 Hours (Table) 03/23/23 03/23/23 03/23/23 Range/Units 06:05 07:05 07:05 RBC 3.53 L (3.80-5.40) m/uL Hgb 10.5 L (11.4-16.0) gm/dL Hct 33.2 L (34.0-46.0) % RDW 15.6 H (11.5-15.5) % Lymphocytes # 0.5 L (1.0-4.8) k/uL Sodium 134 L (137-145) mmol/L BUN 49 H (7-17) mg/dL Creatinine 2.87 H (0.52-1.04) mg/dL POC Glucose (mg/dL) 113 H (70-110) mg/dL Calcium 7.7 L (8.4-10.2) mg/dL 03/23/23 03/23/23 03/23/23 Range/Units 11:47 16:57 20:13 RBC (3.80-5.40) m/uL Hgb (11.4-16.0) gm/dL Hct (34.0-46.0) % RDW (11.5-15.5) % Lymphocytes # (1.0-4.8) k/uL Sodium (137-145) mmol/L BUN (7-17) mg/dL Creatinine (0.52-1.04) mg/dL POC Glucose (mg/dL) 192 H 261 H 294 H (70-110) mg/dL Calcium (8.4-10.2) mg/dL Assessment and Plan Assessment: Acute influenza A infection Possible bacterial pneumonia. Chest x-ray showed patchy densities have increased to the lung base. Procalcitonin level 0.22. Acute CHF preserved EF. Paroxysmal Atrial fibrillation. Heart rate controlled.Recent history of Watchman procedure Acute on chronic renal disease stage IV. Baseline creatinine 1.8 and creatinine 2.61 on admission History of GI bleed in June 2022 Coronary artery disease with history of stent placement on 05/11/2021 Diabetes type 2 insulin-dependent Uncontrolled hypertension GERD History of [place] Osteoarthritis Depression Prior history of smoking Chronic back pain DVT prophylaxis with heparin subcu. GI prophylax with PPI Plan: Patient will be continued on telemonitoring. Patient was continued on IV diuresis with Lasix and changed to Bumex 1 mg p.o. twice daily. Patient was started back on blood pressure medications Coreg, nifedipine. Currently insulin sliding scale and Levemir. Patient was started on Tamiflu 30 mg. Day 2 out of 5 Continue with antibiotics ceftriaxone azithromycin for 2/5 days. Encourage incentive spirometry Patient does not want to be anticoagulated due to history of prior GI bleed. Patient did have Watchman procedure recently. Cardiology and nephrology is on board. Continue to follow closely. Prognosis is guarded. Time with Patient: Greater than 30
--- NOTE | 2023-03-25 01:48 | P.PN ---
Subjective Progress Note Date: 03/24/23 Patient is a 77-year-old female with a past medical history of coronary artery disease status post stent placement, hypertension, diabetes type 2 insulin- dependent, history of GI bleed, osteoarthritis, chronic back pain, depression prior history of smoking presents to ER with complaints of generalized weakness and shortness of breath. Patient states that she was released from [facility] yesterday. She was admitted overnight for lip cellulitis as well as urinary tract infection. Patient is currently on Keflex for urinary tract infection. Patient went home and felt very weak and unable to get out of the bed With the help of her daughter. She became more short of breath especially with exertion. Denies any chest pain or palpitations. No nausea vomiting or diarrhea. No fever no chills. Chest x-ray showed low lung volumes with generalized hazy appearance which could represent atelectasis versus pulmonary edema correlate with serum BNP. EKG showed atrial fibrillation with low voltage QRS. Ventricular rate 88. Laboratory data showed WBC 10.8 hemoglobin 11.5 and platelets 306 D-dimer 2.41, sodium 135 potassium 4.5 chloride 103 BUN 53 and creatinine 2.61 and blood sugar 177 AST 38 ALT 47 alk phos 101 troponin x 1 [place] [address] Influenza A detected. 03/22/2023 Patient is lying in the bed. Awake and alert seems to be lethargic. Able to open her eyes with verbal stimuli and follows simple commands. No complaints of chest pain. Shortness of breath is improving. Currently on room air. Otherwise patient has been afebrile. No nausea or vomiting.. Oral input is minimal. Leg swelling is much improved. Repeat chest x-ray this morning showed hypoventilatory changes with ongoing mild pulmonary vascular congestion. Patchy densities have increased at the lung base. CT head showed suggestion of mild chronic appearing periventricular white matter ischemic changes. No acute intracranial process. Laboratory showed WBC 10.5 hemoglobin 11.4 and platelets 234 BUN 49 creatinine 2.49, A1c 7.9 and calcium 7.8. Patient is being continued on IV Lasix changed to twice daily. 03/23/2023 Patient is currently able to sit in the chair. Seems to be more awake and oriented. No complaints of chest pain. Patient's pain is improving. No leg swelling. No nausea vomiting or abdominal pain or diarrhea. IV Lasix changed to Bumex p.o. Patient has been afebrile. Cough did improve. Patient remains on antibiotics and also on Tamiflu. Laboratory data showed WBC 6.1 hemoglobin 10.5 and platelets 217 BUN 49 creatinine 2.87 and calcium 7.7. Cardiology and nephrology is on board. 2D echocardiogram showed technically difficult study with normal LV systolic function. Moderate MR, mild to moderate AR and mild pulmonary hypertension and dilated right ventricle and moderate TR. 03/24/2023 Patient is currently sitting in the bed. Awake alert and oriented. Was able to walk with walker. No complaints of chest pain or shortness of breath. Patient does have cough without any sputum production. Continued on breathing treatments and Pulmicort was added. Otherwise patient is maintained on Tamiflu and antibiotics for possible bacterial pneumonia also. Patient has been afebrile. No nausea vomiting or abdominal pain or diarrhea. Laboratory data showed WBC 4.7 hemoglobin 10.6 and platelets 190, BUN 48 and creatinine slightly increasing to 3.07 and blood sugar 198. Calcium 7.5. Cardiology and nephrology is on board. Current medications reviewed. Objective - Vital Signs Vital signs: Vital Signs Temp 97.9 F 03/24/23 19:50 Pulse 93 03/24/23 19:50 Resp 18 03/24/23 19:50 BP 141/64 03/24/23 19:50 Pulse Ox 100 03/24/23 19:50 FiO2 Intake & Output 03/24/23 03/24/23 03/25/23 06:59 18:59 06:59 Intake Total 100 480 10 Output Total 600 Balance -500 480 10 Weight 86.5 kg Intake: IV 10 Invasive Line 3 10 Oral 100 480 Output: Urine 600 Other: Voiding Method Toilet Toilet Toilet - Exam PHYSICAL EXAMINATION: Patient is lying in the bed , no acute distress, awake alert and oriented.. HEENT: Normocephalic. Neck is supple. Pupils reactive. Nostrils clear. Oral cavity is moist. Neck reveals no JVD, carotid bruits, or thyromegaly. CHEST EXAMINATION: Trachea is central. Symmetrical expansion. Bilateral improved air entry. Scattered coarse breath sounds... Nonlabored breathing. CARDIAC: Normal S1, S2 with no gallops. No murmurs ABDOMEN: Soft. Bowel sounds present. Nontender. No organomegaly. No abdominal bruits. Extremities: reveal no edema. No clubbing or cyanosis Neurologically awake, alert, oriented x2-3. No gross focal deficits noted Skin: No rash or skin lesions. Psychiatric: Coperative. , Musculoskeletal: No joint swelling or deformity. - Labs CBC & Chem 7: 03/24/23 08:45 03/24/23 08:45 Labs: Abnormal Lab Results - Last 24 Hours (Table) 03/24/23 03/24/23 03/24/23 Range/Units 08:45 08:45 11:45 RBC 3.52 L (3.80-5.40) m/uL Hgb 10.6 L (11.4-16.0) gm/dL Hct 33.5 L (34.0-46.0) % RDW 15.8 H (11.5-15.5) % Lymphocytes # 0.7 L (1.0-4.8) k/uL Sodium 136 L (137-145) mmol/L BUN 48 H (7-17) mg/dL Creatinine 3.07 H (0.52-1.04) mg/dL Glucose 198 H (74-99) mg/dL POC Glucose (mg/dL) 217 H (70-110) mg/dL Calcium 7.5 L (8.4-10.2) mg/dL 03/24/23 03/24/23 Range/Units 16:57 20:18 RBC (3.80-5.40) m/uL Hgb (11.4-16.0) gm/dL Hct (34.0-46.0) % RDW (11.5-15.5) % Lymphocytes # (1.0-4.8) k/uL Sodium (137-145) mmol/L BUN (7-17) mg/dL Creatinine (0.52-1.04) mg/dL Glucose (74-99) mg/dL POC Glucose (mg/dL) 247 H 166 H (70-110) mg/dL Calcium (8.4-10.2) mg/dL Assessment and Plan Assessment: Acute influenza A infection Possible bacterial pneumonia. Chest x-ray showed patchy densities have increased to the lung base. Procalcitonin level 0.22. Acute CHF preserved EF. Paroxysmal Atrial fibrillation. Heart rate controlled.Recent history of Watchman procedure Acute on chronic renal disease stage IV. Baseline creatinine 1.8 and creatinine 2.61 on admission History of GI bleed in June 2022 Coronary artery disease with history of stent placement on 05/11/2021 Diabetes type 2 insulin-dependent Uncontrolled hypertension GERD History of [place] Osteoarthritis Depression Prior history of smoking Chronic back pain DVT prophylaxis with heparin subcu. GI prophylax with PPI Plan: Patient will be continued on telemonitoring. Patient was continued on IV diuresis with Lasix and changed to Bumex 1 mg p.o. twice daily. Patient was started back on blood pressure medications Coreg, nifedipine. Currently insulin sliding scale and Levemir. Patient was started on Tamiflu 30 mg. Day 3 out of 5 Continue with antibiotics ceftriaxone azithromycin for 3/5 days. Encourage incentive spirometry Patient does not want to be anticoagulated due to history of prior GI bleed. Patient did have Watchman procedure recently. Cardiology and nephrology is on board. Follow-up renal function. Anticipate discharge in the next 24 to 48 hours. Continue to follow closely. Prognosis is guarded. Time with Patient: Greater than 30
[2023-03-25 06:41] LABS: Glucose,Whole Blood 108 mg/dL (70-110)
[2023-03-25] MEDS: INSULIN ASPART (NovoLOG) 100 UNIT/ML VIAL SQ SCH ×7 (06:47→21:01)
[2023-03-25] MEDS: PANTOPRAZOLE 40 MG TABLET PO SCH (07:01)
[2023-03-25] MEDS: carvediloL 12.5 MG TAB PO SCH ×2 (07:01→16:31)
[2023-03-25] MEDS: BUDESONIDE 0.5 MG/2 ML NEBU INHALATION SCH ×2 (09:07→22:21)
[2023-03-25] MEDS: IPRATROPIUM-ALBUTEROL 3 ML NEB INHALATION PRN ×3 (09:07→22:21)
[2023-03-25 09:32] LABS: African American GFR (CKD) 18 (>60 ml/min/1.73 sqM); Anion Gap 7 mmol/L; Blood Urea Nitrogen 45 mg/dL (7-17); Carbon Dioxide 28 mmol/L (22-30); Chloride 103 mmol/L (98-107); Glucose 99 mg/dL (74-99); Non-African American GFR(CKD) 16 (>60 ml/min/1.73 sqM); Potassium 4.1 mmol/L (3.5-5.1); Sodium 138 mmol/L (137-145)
[2023-03-25] MEDS: hydrALAZINE HCL 25 MG TAB PO SCH ×3 (10:02→21:00)
[2023-03-25] MEDS: BUMETANIDE 1 MG TAB PO SCH ×2 (10:02→16:31)
[2023-03-25] MEDS: NIFEdipine XL 30 MG TAB.ER.24 PO SCH (10:02)
[2023-03-25] MEDS: ISOSORBIDE MONONITRATE ER 60 MG TAB.ER.24H PO SCH (10:03)
[2023-03-25] MEDS: ASPIRIN 81 MG PO SCH (10:03)
[2023-03-25] MEDS: CLOPIDOGREL 75 MG TAB PO SCH (10:03)
[2023-03-25] MEDS: LORATADINE 10 MG TAB PO SCH (10:03)
[2023-03-25] MEDS: GABAPENTIN 100 MG CAP PO SCH ×2 (10:03→21:00)
[2023-03-25] MEDS: HEPARIN SODIUM,PORCINE 5,000 UNIT/ML 1 ML VIAL SQ SCH ×2 (10:03→21:00)
[2023-03-25] MEDS: TIMOLOL 0.25% OPHTH DROPS 5 ML BTL BOTH EYES SCH ×2 (10:04→21:01)
--- NOTE | 2023-03-25 11:23 | P.PN ---
Subjective Patient is seen for follow-up for chronic kidney disease and Stage IV. She is admitted to the hospital with weakness, shortness of breath and volume overload. Patient was maintained on IV Lasix, currently switched to oral Bumex. She has diuresed with improvement in volume status. Shortness of breath has improved. Weight is down. Serum creatinine has decreased to 2.8 mg/dL. It was lower on initial admission secondary to significant volume overload. Patient's serum creatinine as outpatient was around 3 mg/dL prior to admission. Overall feeling much better with improvement in fatigue as well. Objective - Vital Signs Vital signs: Vital Signs Temp 97.8 F 03/25/23 08:00 Pulse 84 03/25/23 09:22 Resp 16 03/25/23 08:00 BP 151/61 03/25/23 08:00 Pulse Ox 99 03/25/23 08:00 FiO2 Intake & Output 03/24/23 03/25/23 03/25/23 18:59 06:59 18:59 Intake Total 480 10 128 Output Total 800 Balance 480 10 -672 Weight 88.4 kg Intake: IV 10 10 Invasive Line 3 10 10 Oral 480 118 Output: Urine 800 Other: Voiding Method Toilet Toilet Toilet - Exam Patient is awake, comfortable, no acute distress Examination of the heart S1 and S2 Examination of the lungs bilateral breath sounds are heard Abdomen is soft nontender Examination lower extremity shows edema 1+ bilaterally, improved [employer] exam grossly intact - Labs CBC & Chem 7: 03/24/23 08:45 03/25/23 07:40 Labs: Abnormal Lab Results - Last 24 Hours (Table) 03/24/23 03/24/23 03/24/23 Range/Units 11:45 16:57 20:18 BUN (7-17) mg/dL Creatinine (0.52-1.04) mg/dL POC Glucose (mg/dL) 217 H 247 H 166 H (70-110) mg/dL Calcium (8.4-10.2) mg/dL 03/25/23 Range/Units 07:40 BUN 45 H (7-17) mg/dL Creatinine 2.80 H (0.52-1.04) mg/dL POC Glucose (mg/dL) (70-110) mg/dL Calcium 8.0 L (8.4-10.2) mg/dL Assessment and Plan Assessment: 1. Chronic kidney disease and Stage IV with baseline creatinine recently around 3 mg/dL with plans for preparation for renal replacement therapy as outpatient. Currently being diuresed. Diuretics have been switched to oral. 2. Component of acute kidney injury mostly cardiorenal. 3. Status post recent hospitalization for lip cellulitis and urinary tract infection. Maintained on Keflex. 4. CKD mineral bone disorder 5. Hypertension with CKD stage IV 6. Volume overload 7. CHF acute on chronic with ejection fraction of 50 to 55% 8. Influenza A infection Plan: Continue current dose of Bumex Continue calcitriol Repeat labs in a.m. Monitor urine output closely Can hold renal replacement therapy as volume status has improved with improvement in overall status. Serum creatinine is at baseline.
[2023-03-25 11:39] LABS: Glucose,Whole Blood 330 mg/dL (70-110)
--- NOTE | 2023-03-25 11:47 | P.PN ---
Subjective HISTORY OF PRESENT ILLNESS: This is a 77-year-old female with a past medical history significant for hypertension, hyperlipidemia, atrial fibrillation, congestive heart failure, GI bleed, coronary artery disease with previous stenting, and recent Watchman device. Patient follows with a pain management specialist at [facility]. We have been asked to see the patient in consultation for congestive heart failure. Patient examined at the bedside. Patient's daughter is at the bedside and providing the majority of the history as the patient is feeling unwell this morning. Patient's daughter states that she was hospitalized at [facility] a couple days ago for cellulitis of the lip versus angioedema. She was treated with antibiotic therapy. She also reports she had altered mental status at that time and was treated for urinary tract infection. She was discharged home in stable condition. The daughter states yesterday the patient became very weak and lethargic and was feeling generally unwell. They state that she was complaining of shortness of breath. She was brought to the emergency room for further evaluation. She was found to be positive for influenza A. Patient does report shortness of breath this morning. She denies any chest pain or pressure. Telemetry reveals atrial fibrillation with controlled ventricular rate. Patien t's blood pressures have been elevated since admission with systolics ranging between [id number]. The patient's daughter reports that she had a Watchman procedure performed at [facility] approximately 5 months ago. She states that she was told to continue her Aspirin and Plavix for 1 more month by her pain management specialist. She denies ever having an ablation or cardioversion. She does report having stents in her heart with the last one being placed in 2021. She denies any history of cardiomyopathy to her knowledge. DIAGNOSTICS: EKG reveals atrial fibrillation with controlled ventricular rate Chest xray low lung volumes with generalized hazy appearance which could represent atelectasis versus pulmonary edema Laboratory data: WBC 10.5. Hemoglobin 11.4. Platelet count 234. Sodium 134. Potassium 3.8. BUN 49. Creatinine 2.49. Troponin negative x 1. proBNP 20,100. Current home cardiac medications include carvedilol 6.25 mg at night and 12.5 mg in the morning, rosuvastatin 5 mg at night, nifedipine 30 mg daily, metoprolol succinate 50 mg daily, Imdur 60 mg daily, Plavix 75 mg daily, Bumex 1 mg twice a day, and aspirin 81 mg daily August 22, 2023 Patient examined this morning. She sitting up in the chair. There is no family present. Patient clinically appears to be improving today. She denies any chest pain or pressure. She currently denies shortness of breath. Remains on IV diuretics. Vital signs are stable. Telemetry reveals atrial fibrillation with controlled ventricular rate. Blood pressure stable. Most recent reading 101/60. She is afebrile. Echocardiogram completed revealing ejection fraction 50 to 55%, mild to moderate aortic insufficiency, moderate MR, moderate to severe TR,, and mild pulmonary hypertension. Records from patient's primary pain management specialist, Dr. Mack, out of [facility] were received and have been reviewed. The patient did have an echocardiogram performed in 2021 with an EF of 35 to 40%, akinetic inferior septal and anterior septal wall, hypokinetic apex, and mild MR. She underwent cardiac catheterization in May 11, 2021 with PCI to the proximal LAD and ostial LAD. She also underwent stenting to the circumflex. She underwent repeat heart catheterization on May 13, 2021 with successful shockwave and PCI of the RCA. She underwent Watchman procedure in November 2022. She underwent MELISSA in December 2022 which revealed well-seated Watchman device questionable leak that was later ruled out. Ejection fraction 45%. March 24, 2023 Patient examined this morning at the bedside. Patient currently denies chest pain or pressure. She denies shortness of breath at the time examination. She continues to report a frequent nonproductive cough. Bedside telemetry reveals atrial fibrillation with a heart in the 80s. Creatinine today 3.07. March 25, 2023 Patient examined this morning at the bedside. Patient currently denies chest pain or pressure. She denies shortness of breath. She continues to report a frequent nonproductive cough. Creatinine today is down to 2.80. She remains on oral diuretic therapy. Telemetry reveals atrial fibrillation with controlled ventricular rate. Blood pressure stable. PHYSICAL EXAM: VITAL SIGNS: Reviewed. GENERAL: Well-developed in no acute distress. HEENT: Head is normocephalic. Pupils are equal, round. Sclerae anicteric. Mucous membranes of the mouth are moist. Neck supple. No JVD or thyromegaly LUNGS: Respirations even and unlabored. Lungs diminished bilaterally with mild expiratory wheezing and rhonchi noted. HEART: Irregular rate and rhythm. S1 and S2 heard. ABDOMEN: Soft. Nondistended. Nontender. EXTREMITIES: Normal range of motion. No clubbing or cyanosis. Peripheral pulses intact. 1-2+ bilateral lower extremity edema, improved from yesterday. NEUROLOGIC: Awake and alert. Oriented x 3. 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 Nephrology is following. Continue additional cardiac medications Would benefit from Farxiga when AUDREY improves Continue with aspirin and Plavix at this time. Patient does not require anticoagulation due to recent Watchman procedure performed at [facility] Further recommendations pending patient course Nurse practitioner note has been reviewed by physician. Signing provider agrees with the documented findings, assessment, and plan of care documented by AERIAL CROP DUSTER as a scribe. Objective - Vital Signs Vital signs: Vital Signs Temp 97.8 F 03/25/23 08:00 Pulse 84 03/25/23 09:22 Resp 16 03/25/23 08:00 BP 151/61 03/25/23 08:00 Pulse Ox 99 03/25/23 08:00 FiO2 Intake & Output 03/24/23 03/25/23 03/25/23 18:59 06:59 18:59 Intake Total 480 10 128 Output Total 800 Balance 480 10 -672 Weight 88.4 kg Intake: IV 10 10 Invasive Line 3 10 10 Oral 480 118 Output: Urine 800 Other: Voiding Method Toilet Toilet Toilet - Labs CBC & Chem 7: 03/24/23 08:45 03/25/23 07:40 Labs: Abnormal Lab Results - Last 24 Hours (Table) 03/24/23 03/24/23 03/24/23 Range/Units 11:45 16:57 20:18 BUN (7-17) mg/dL Creatinine (0.52-1.04) mg/dL POC Glucose (mg/dL) 217 H 247 H 166 H (70-110) mg/dL Calcium (8.4-10.2) mg/dL 03/25/23 03/25/23 Range/Units 07:40 11:37 BUN 45 H (7-17) mg/dL Creatinine 2.80 H (0.52-1.04) mg/dL POC Glucose (mg/dL) 330 H (70-110) mg/dL Calcium 8.0 L (8.4-10.2) mg/dL
[2023-03-25 16:22] LABS: Glucose,Whole Blood 124 mg/dL (70-110)
[2023-03-25 20:01] LABS: Glucose,Whole Blood 182 mg/dL (70-110)
[2023-03-25] MEDS: OSELTAMIVIR 60 MG/10 ML ORAL SYRINGE PO SCH (21:00)
[2023-03-25] MEDS: DULoxetine HCL 60 MG CAPSULE.DR PO SCH (21:00)
[2023-03-25] MEDS: LATANOPROST 0.005% OPHTH DROPS 2.5 ML BTL BOTH EYES SCH (21:01)
[2023-03-25] MEDS: INSULIN DETEMIR (LEVEMIR) 100 UNIT/ML SYR SQ SCH (21:01)
[2023-03-25] MEDS ORDERED: INSULIN DETEMIR (LEVEMIR) 100 UNIT/ML SYR SQ SCH ×2 (21:30→22:45)
[2023-03-25] MEDS: NON FORMULARY DRUG (Rosuvastatin Calcium [Rosuvastatin Calcium] 5 MG Tablet) PO SCH (22:45)
[2023-03-25] MEDS ORDERED: INSULIN DETEMIR (LEVEMIR) 100 UNIT/ML SYR SQ ONE (22:45)
[2023-03-25] MEDS: oxyCODONE-APAP 10-325MG 1 EACH TAB PO PRN (23:15)
[2023-03-26 06:14] LABS: Glucose,Whole Blood 78 mg/dL (70-110)
[2023-03-26] MEDS: INSULIN ASPART (NovoLOG) 100 UNIT/ML VIAL SQ SCH ×7 (06:15→21:09)
[2023-03-26] MEDS: carvediloL 12.5 MG TAB PO SCH ×2 (07:06→16:41)
[2023-03-26] MEDS: PANTOPRAZOLE 40 MG TABLET PO SCH (07:06)
[2023-03-26] MEDS: BUDESONIDE 0.5 MG/2 ML NEBU INHALATION SCH ×2 (08:29→21:35)
[2023-03-26] MEDS: IPRATROPIUM-ALBUTEROL 3 ML NEB INHALATION PRN ×4 (08:29→21:35)
--- NOTE | 2023-03-26 08:33 | XR ---
EXAMINATION TYPE: XR chest 1V DATE OF EXAM: 03/26/2023 COMPARISON: 03/22/2023 INDICATION: TECHNIQUE: Single frontal view of the chest is obtained. FINDINGS: The heart size is normal. The pulmonary vasculature is normal. The lungs are clear. IMPRESSION: 1. No acute pulmonary process.
[2023-03-26 09:28] LABS: Basophils % (A) 1 %; Eosinophils # (A) 0.4 k/uL (0-0.7); Eosinophils % (A) 9 %; HCT 33.3 % (34.0-46.0); HGB 10.6 gm/dL (11.4-16.0); Hypochromasia Moderate; Lymphocytes # (A) 1.2 k/uL (1.0-4.8); Lymphocytes % (A) 26 %; MCH 29.8 pg (25.0-35.0); MCHC 31.9 g/dL (31.0-37.0); MCV 93.6 fL (80.0-100.0); Mean Platelet Volume 7.6; Monocytes # (A) 0.3 k/uL (0-1.0); Monocytes % (A) 6 %; Neutrophils # (A) 2.5 k/uL (1.3-7.7); Neutrophils % (A) 56 %; Platelet Count 200 k/uL (150-450); RBC 3.56 m/uL (3.80-5.40); RDW 15.6 % (11.5-15.5); WBC 4.5 k/uL (3.8-10.6)
[2023-03-26 09:46] LABS: African American GFR (CKD) 19 (>60 ml/min/1.73 sqM); Anion Gap 8 mmol/L; Blood Urea Nitrogen 41 mg/dL (7-17); Calcium 7.9 mg/dL (8.4-10.2); Carbon Dioxide 25 mmol/L (22-30); Chloride 105 mmol/L (98-107); Glucose 106 mg/dL (74-99); Non-African American GFR(CKD) 16 (>60 ml/min/1.73 sqM); Potassium 3.5 mmol/L (3.5-5.1); Sodium 138 mmol/L (137-145)
--- NOTE | 2023-03-26 09:57 | P.PN ---
Subjective HISTORY OF PRESENT ILLNESS: This is a 77-year-old female with a past medical history significant for hypertension, hyperlipidemia, atrial fibrillation, congestive heart failure, GI bleed, coronary artery disease with previous stenting, and recent Watchman device. Patient follows with a attendance clerk at [facility]. We have been asked to see the patient in consultation for congestive heart failure. Patient examined at the bedside. Patient's daughter is at the bedside and providing the majority of the history as the patient is feeling unwell this morning. Patient's daughter states that she was hospitalized at [facility] a couple days ago for cellulitis of the lip versus angioedema. She was treated with antibiotic therapy. She also reports she had altered mental status at that time and was treated for urinary tract infection. She was discharged home in stable condition. The daughter states yesterday the patient became very weak and lethargic and was feeling generally unwell. They state that she was complaining of shortness of breath. She was brought to the emergency room for further evaluation. She was found to be positive for influenza A. Patient does report shortness of breath this morning. She denies any chest pain or pressure. Telemetry reveals atrial fibrillation with controlled ventricular rate. Patien t's blood pressures have been elevated since admission with systolics ranging between [id number]. The patient's daughter reports that she had a Watchman procedure performed at [facility] approximately 5 months ago. She states that she was told to continue her Aspirin and Plavix for 1 more month by her attendance clerk. She denies ever having an ablation or cardioversion. She does report having stents in her heart with the last one being placed in 2021. She denies any history of cardiomyopathy to her knowledge. DIAGNOSTICS: EKG reveals atrial fibrillation with controlled ventricular rate Chest xray low lung volumes with generalized hazy appearance which could represent atelectasis versus pulmonary edema Laboratory data: WBC 10.5. Hemoglobin 11.4. Platelet count 234. Sodium 134. Potassium 3.8. BUN 49. Creatinine 2.49. Troponin negative x 1. proBNP 20,100. Current home cardiac medications include carvedilol 6.25 mg at night and 12.5 mg in the morning, rosuvastatin 5 mg at night, nifedipine 30 mg daily, metoprolol succinate 50 mg daily, Imdur 60 mg daily, Plavix 75 mg daily, Bumex 1 mg twice a day, and aspirin 81 mg daily August 22, 2023 Patient examined this morning. She sitting up in the chair. There is no family present. Patient clinically appears to be improving today. She denies any chest pain or pressure. She currently denies shortness of breath. Remains on IV diuretics. Vital signs are stable. Telemetry reveals atrial fibrillation with controlled ventricular rate. Blood pressure stable. Most recent reading 101/60. She is afebrile. Echocardiogram completed revealing ejection fraction 50 to 55%, mild to moderate aortic insufficiency, moderate MR, moderate to severe TR,, and mild pulmonary hypertension. Records from patient's primary attendance clerk, Dr. Mack, out of [facility] were received and have been reviewed. The patient did have an echocardiogram performed in 2021 with an EF of 35 to 40%, akinetic inferior septal and anterior septal wall, hypokinetic apex, and mild MR. She underwent cardiac catheterization in May 11, 2021 with PCI to the proximal LAD and ostial LAD. She also underwent stenting to the circumflex. She underwent repeat heart catheterization on May 13, 2021 with successful shockwave and PCI of the RCA. She underwent Watchman procedure in November 2022. She underwent MELISSA in December 2022 which revealed well-seated Watchman device questionable leak that was later ruled out. Ejection fraction 45%. March 24, 2023 Patient examined this morning at the bedside. Patient currently denies chest pain or pressure. She denies shortness of breath at the time examination. She continues to report a frequent nonproductive cough. Bedside telemetry reveals atrial fibrillation with a heart in the 80s. Creatinine today 3.07. March 25, 2023 Patient examined this morning at the bedside. Patient currently denies chest pain or pressure. She denies shortness of breath. She continues to report a frequent nonproductive cough. Creatinine today is down to 2.80. She remains on oral diuretic therapy. Telemetry reveals atrial fibrillation with controlled ventricular rate. Blood pressure stable. March 26, 2023 Patient examined this morning at the bedside. Patient currently denies chest p ain or pressure. She denies shortness of breath. She continues to report a frequent nonproductive cough. Creatinine today is down to 2.68. She remains on oral diuretic therapy. Telemetry reveals atrial fibrillation with controlled ventricular rate. Blood pressure stable. PHYSICAL EXAM: VITAL SIGNS: Reviewed. GENERAL: Well-developed in no acute distress. HEENT: Head is normocephalic. Pupils are equal, round. Sclerae anicteric. Mucous membranes of the mouth are moist. Neck supple. No JVD or thyromegaly LUNGS: Respirations even and unlabored. Lungs diminished bilaterally with mild expiratory wheezing and rhonchi noted. HEART: Irregular rate and rhythm. S1 and S2 heard. ABDOMEN: Soft. Nondistended. Nontender. EXTREMITIES: Normal range of motion. No clubbing or cyanosis. Peripheral p ulses intact. Trace bilateral lower extremity edema, improved from yesterday. NEUROLOGIC: Awake and alert. Oriented x 3. 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 Nephrology is following. Continue additional cardiac medications Continue with aspirin and Plavix at this time. Patient does not require anticoagulation due to recent Watchman procedure performed at [facility] Further recommendations pending patient course Nurse practitioner note has been reviewed by physician. Signing provider agrees with the documented findings, assessment, and plan of care documented by CHIEF DRAFTER as a scribe. Objective - Vital Signs Vital signs: Vital Signs Temp 97.8 F 03/26/23 04:22 Pulse 88 03/26/23 08:39 Resp 18 03/26/23 04:22 BP 139/73 03/26/23 04:22 Pulse Ox 97 03/26/23 04:22 FiO2 Intake & Output 03/25/23 03/26/23 03/26/23 18:59 06:59 18:59 Intake Total 904 994 590 Output Total 1900 1800 200 Balance -996 -806 390 Weight 88.7 kg Intake: IV 10 10 Invasive Line 3 10 10 Intake, IV Titration 540 540 Amount cefTRIAXone 1 gm In 540 540 Sodium Chloride 0.9% 50 ml @ 100 mls/hr IVPB Q24HR [facility] Rx#:[id number] Oral 894 444 50 Output: Urine 1900 1800 200 Other: Voiding Method Toilet Toilet # Voids 1 1 - Labs CBC & Chem 7: 03/26/23 08:49 03/26/23 08:49 Labs: Abnormal Lab Results - Last 24 Hours (Table) 03/25/23 03/25/23 03/25/23 Range/Units 11:37 16:21 20:00 RBC (3.80-5.40) m/uL Hgb (11.4-16.0) gm/dL Hct (34.0-46.0) % RDW (11.5-15.5) % BUN (7-17) mg/dL Creatinine (0.52-1.04) mg/dL Glucose (74-99) mg/dL POC Glucose (mg/dL) 330 H 124 H 182 H (70-110) mg/dL Calcium (8.4-10.2) mg/dL 03/26/23 03/26/23 Range/Units 08:49 08:49 RBC 3.56 L (3.80-5.40) m/uL Hgb 10.6 L (11.4-16.0) gm/dL Hct 33.3 L (34.0-46.0) % RDW 15.6 H (11.5-15.5) % BUN 41 H (7-17) mg/dL Creatinine 2.68 H (0.52-1.04) mg/dL Glucose 106 H (74-99) mg/dL POC Glucose (mg/dL) (70-110) mg/dL Calcium 7.9 L (8.4-10.2) mg/dL
[2023-03-26] MEDS: ASPIRIN 81 MG PO SCH (10:10)
[2023-03-26] MEDS: ISOSORBIDE MONONITRATE ER 60 MG TAB.ER.24H PO SCH (10:10)
[2023-03-26] MEDS: HEPARIN SODIUM,PORCINE 5,000 UNIT/ML 1 ML VIAL SQ SCH ×2 (10:10→21:19)
[2023-03-26] MEDS: hydrALAZINE HCL 25 MG TAB PO SCH ×3 (10:11→21:19)
[2023-03-26] MEDS: BUMETANIDE 1 MG TAB PO SCH ×2 (10:11→16:41)
[2023-03-26] MEDS: CLOPIDOGREL 75 MG TAB PO SCH (10:11)
[2023-03-26] MEDS: GABAPENTIN 100 MG CAP PO SCH ×2 (10:11→21:19)
[2023-03-26] MEDS: LORATADINE 10 MG TAB PO SCH (10:11)
[2023-03-26] MEDS: TIMOLOL 0.25% OPHTH DROPS 5 ML BTL BOTH EYES SCH ×2 (10:11→21:19)
[2023-03-26] MEDS: NIFEdipine XL 30 MG TAB.ER.24 PO SCH (10:11)
--- NOTE | 2023-03-26 11:05 | P.PN ---
Subjective Patient is seen for follow-up for chronic kidney disease and Stage IV. She is admitted to the hospital with weakness, shortness of breath and volume overload. Tested positive for influenza A. Patient was maintained on IV Lasix, currently switched to oral Bumex. She has diuresed with improvement in volume status. Shortness of breath has improved. Weight is down. Serum creatinine has decreased to 2.6 mg/dL. Patient's serum creatinine as outpatient was around 3 mg/dL prior to admission. Overall feeling much better with improvement in fatigue as well. Objective - Vital Signs Vital signs: Vital Signs Temp 97.9 F 03/26/23 08:00 Pulse 88 03/26/23 08:39 Resp 18 03/26/23 08:00 BP 146/63 03/26/23 08:00 Pulse Ox 95 03/26/23 08:00 FiO2 Intake & Output 03/25/23 03/26/23 03/26/23 18:59 06:59 18:59 Intake Total 904 994 600 Output Total 1900 1800 200 Balance -996 -806 400 Weight 88.7 kg Intake: IV 10 10 10 Invasive Line 3 10 10 10 Intake, IV Titration 540 540 Amount cefTRIAXone 1 gm In 540 540 Sodium Chloride 0.9% 50 ml @ 100 mls/hr IVPB Q24HR [facility] Rx#:[id number] Oral 894 444 50 Output: Urine 1900 1800 200 Other: Voiding Method Toilet Toilet Toilet # Voids 1 1 - Exam Patient is awake, comfortable, no acute distress Examination of the heart S1 and S2 Examination of the lungs bilateral breath sounds are heard Abdomen is soft nontender Examination lower extremity shows edema 1+ bilaterally, improved [employer] exam grossly intact - Labs CBC & Chem 7: 03/26/23 08:49 03/26/23 08:49 Labs: Abnormal Lab Results - Last 24 Hours (Table) 03/25/23 03/25/23 03/25/23 Range/Units 11:37 16:21 20:00 RBC (3.80-5.40) m/uL Hgb (11.4-16.0) gm/dL Hct (34.0-46.0) % RDW (11.5-15.5) % BUN (7-17) mg/dL Creatinine (0.52-1.04) mg/dL Glucose (74-99) mg/dL POC Glucose (mg/dL) 330 H 124 H 182 H (70-110) mg/dL Calcium (8.4-10.2) mg/dL 03/26/23 03/26/23 Range/Units 08:49 08:49 RBC 3.56 L (3.80-5.40) m/uL Hgb 10.6 L (11.4-16.0) gm/dL Hct 33.3 L (34.0-46.0) % RDW 15.6 H (11.5-15.5) % BUN 41 H (7-17) mg/dL Creatinine 2.68 H (0.52-1.04) mg/dL Glucose 106 H (74-99) mg/dL POC Glucose (mg/dL) (70-110) mg/dL Calcium 7.9 L (8.4-10.2) mg/dL Assessment and Plan Assessment: 1. Chronic kidney disease and Stage IV with baseline creatinine recently around 3 mg/dL with plans for preparation for renal replacement therapy as outpatient. Currently being diuresed. Diuretics have been switched to oral. 2. Component of acute kidney injury mostly cardiorenal. 3. Status post recent hospitalization for lip cellulitis and urinary tract infection. Maintained on Keflex. 4. CKD mineral bone disorder 5. Hypertension with CKD stage IV 6. Volume overload 7. CHF acute on chronic with ejection fraction of 50 to 55% 8. Influenza A infection Plan: Continue current dose of Bumex Continue calcitriol Repeat labs in a.m. Monitor urine output closely Can hold renal replacement therapy as volume status has improved with improvement in overall status. Serum creatinine is better prior to admission.
[2023-03-26 11:47] LABS: Glucose,Whole Blood 111 mg/dL (70-110)
[2023-03-26] MEDS ORDERED: POTASSIUM CHLORIDE ER 20 MEQ TAB.ER PO STA (14:25)
[2023-03-26] MEDS: oxyCODONE-APAP 10-325MG 1 EACH TAB PO PRN ×2 (14:48→23:39)
[2023-03-26 16:30] LABS: Glucose,Whole Blood 115 mg/dL (70-110)
[2023-03-26 19:32] LABS: Glucose,Whole Blood 147 mg/dL (70-110)
[2023-03-26] MEDS ORDERED: INSULIN DETEMIR (LEVEMIR) 100 UNIT/ML SYR SQ SCH (21:00)
[2023-03-26] MEDS: OSELTAMIVIR 60 MG/10 ML ORAL SYRINGE PO SCH (21:19)
[2023-03-26] MEDS: DULoxetine HCL 60 MG CAPSULE.DR PO SCH (21:19)
[2023-03-26] MEDS: LATANOPROST 0.005% OPHTH DROPS 2.5 ML BTL BOTH EYES SCH (21:19)
[2023-03-26] MEDS: NON FORMULARY DRUG (Rosuvastatin Calcium [Rosuvastatin Calcium] 5 MG Tablet) PO SCH (21:28)
[2023-03-27 06:00] LABS: Glucose,Whole Blood 117 mg/dL (70-110)
[2023-03-27] MEDS: INSULIN ASPART (NovoLOG) 100 UNIT/ML VIAL SQ SCH ×2 (06:26→06:52)
[2023-03-27] MEDS: carvediloL 12.5 MG TAB PO SCH (06:52)
[2023-03-27] MEDS: PANTOPRAZOLE 40 MG TABLET PO SCH (06:52)
[2023-03-27] MEDS: IPRATROPIUM-ALBUTEROL 3 ML NEB INHALATION PRN (08:24)
[2023-03-27] MEDS: BUDESONIDE 0.5 MG/2 ML NEBU INHALATION SCH (08:24)
--- NOTE | 2023-03-27 09:40 | P.PN ---
Subjective Patient is seen in follow-up for chronic kidney disease. GFR near baseline. On oral diuretics. On room air. Admits to good urine output. Vital signs are stable. General: No acute distress. HEENT: Head exam is unremarkable. LUNGS: No audible rhonchi or wheezes. HEART: Rate and Rhythm are regular. ABDOMEN: Nontender. EXTREMITITES: 1+ edema. Objective - Vital Signs Vital signs: Vital Signs Temp 97.7 F 03/27/23 04:37 Pulse 80 03/27/23 08:34 Resp 16 03/27/23 04:37 BP 140/69 03/27/23 04:37 Pulse Ox 99 03/27/23 04:37 FiO2 Intake & Output 03/26/23 03/27/23 03/27/23 18:59 06:59 18:59 Intake Total 720 550 118 Output Total 700 1600 500 Balance 20 -7600 -382 Weight 87.9 kg Intake: IV 10 10 Invasive Line 3 10 10 Oral 710 540 118 Output: Urine 700 1600 500 Other: Voiding Method Toilet Toilet # Voids 1 - Labs CBC & Chem 7: 03/26/23 08:49 03/26/23 08:49 Labs: Abnormal Lab Results - Last 24 Hours (Table) 03/26/23 03/26/23 03/26/23 Range/Units 08:49 11:45 16:28 BUN 41 H (7-17) mg/dL Creatinine 2.68 H (0.52-1.04) mg/dL Glucose 106 H (74-99) mg/dL POC Glucose (mg/dL) 111 H 115 H (70-110) mg/dL Calcium 7.9 L (8.4-10.2) mg/dL 03/26/23 03/27/23 Range/Units 19:26 05:58 BUN (7-17) mg/dL Creatinine (0.52-1.04) mg/dL Glucose (74-99) mg/dL POC Glucose (mg/dL) 147 H 117 H (70-110) mg/dL Calcium (8.4-10.2) mg/dL Assessment and Plan Plan: Assessment: 1. Chronic kidney disease stage IV baseline creatinine near 3 secondary to diabetic kidney disease. Being prepared for renal replacement therapy outpatient. 2. Influenza A infection. 3. Diabetes mellitus. 4. Volume overload. Improved with diuresis. 5. Hypertension with chronic kidney disease. 6. Acute on chronic diastolic CHF with mild to moderate aortic insufficiency, moderate mitral regurgitation, moderate to severe tricuspid regurgitation. 7. Chronic kidney disease mineral bone disease maintained on calcitriol. Plan: Maintain oral Bumex. Advised patient to maintain low-salt diet and fluid restriction of less than 50 ounces per day. Avoid nephrotoxins. Follow-up outpatient 1 week postdischarge. Follow-up morning labs.
[2023-03-27] MEDS: GABAPENTIN 100 MG CAP PO SCH (09:57)
[2023-03-27] MEDS: BUMETANIDE 1 MG TAB PO SCH (09:57)
[2023-03-27] MEDS: NIFEdipine XL 30 MG TAB.ER.24 PO SCH (09:57)
[2023-03-27] MEDS: HEPARIN SODIUM,PORCINE 5,000 UNIT/ML 1 ML VIAL SQ SCH (09:58)
[2023-03-27] MEDS: ISOSORBIDE MONONITRATE ER 60 MG TAB.ER.24H PO SCH (09:58)
[2023-03-27] MEDS: ASPIRIN 81 MG PO SCH (09:58)
[2023-03-27] MEDS: hydrALAZINE HCL 25 MG TAB PO SCH (09:58)
[2023-03-27] MEDS: CLOPIDOGREL 75 MG TAB PO SCH (09:58)
[2023-03-27] MEDS: LORATADINE 10 MG TAB PO SCH (09:58)
[2023-03-27] MEDS: TIMOLOL 0.25% OPHTH DROPS 5 ML BTL BOTH EYES SCH (10:03)
[2023-03-27] MEDS ORDERED: METOPROLOL SUCCINATE (ER) 25 MG TAB.ER.24H PO SCH (10:30)
[2023-03-27 11:18] LABS: African American GFR (CKD) 20 (>60 ml/min/1.73 sqM); Anion Gap 9 mmol/L; Blood Urea Nitrogen 38 mg/dL (7-17); Calcium 8.2 mg/dL (8.4-10.2); Carbon Dioxide 25 mmol/L (22-30); Chloride 105 mmol/L (98-107); Glucose 158 mg/dL (74-99); Magnesium 2.1 mg/dL (1.6-2.3); Non-African American GFR(CKD) 17 (>60 ml/min/1.73 sqM); Potassium 3.8 mmol/L (3.5-5.1); Sodium 139 mmol/L (137-145)
[2023-03-27 11:32] VITALS: BP 130/61; PULSE 90; RESP 20; TEMP 97.4
[2023-03-27 11:52] LABS: Glucose,Whole Blood 208 mg/dL (70-110)
--- NOTE | 2023-03-27 12:07 | P.PN ---
Progress Note - Text Progress Note Date: 03/27/23 Patient will require nebulizer on discharge to manage interstitial lung disease. Patient continued on DuoNeb treatments 4 times daily.
--- NOTE | 2023-03-27 14:15 | P.PN ---
Progress Note - Text Progress Note Date: 03/27/23 Patient will require nebulizer on discharge as patient is continued on DuoNeb treatments 4 times daily secondary to influenza
--- NOTE | 2023-03-27 14:23 | P.PN ---
Subjective Progress Note Date: 03/27/23 HISTORY OF PRESENT ILLNESS: This is a 77-year-old female with a past medical history significant for hyp ertension, hyperlipidemia, atrial fibrillation, congestive heart failure, GI bleed, coronary artery disease with previous stenting, and recent Watchman device. Patient follows with a measurement psychologist at [facility]. We have been asked to see the patient in consultation for congestive heart failure. Patient examined at the bedside. Patient's daughter is at the bedside and providing the majority of the history as the patient is feeling unwell this morning. Patient's daughter states that she was hospitalized at [facility] a couple days ago for cellulitis of the lip versus angioedema. She was treated with antibiotic therapy. She also reports she had altered mental status at that time and was treated for urinary tract infection. She was discharged home in stable condition. The daughter states yesterday the patient became very weak and lethargic and was feeling generally unwell. They state that she was complaining of shortness of breath. She was brought to the emergency room for further evaluation. She was found to be positive for influenza A. Patient does report shortness of breath this morning. She denies any chest pain or pressure. Telemetry reveals atrial fibrillation with controlled ventricular rate. Patient's blood pressures have been elevated since admission with systolics ranging between [id number]. The patient's daughter reports that she had a Watchman procedure performed at [facility] approximately 5 months ago. She states that she was told to continue her Aspirin and Plavix for 1 more month by her measurement psychologist. She denies ever having an ablation or cardioversion. She does report having stents in her heart with the last one being placed in 2021. She denies any history of cardiomyopathy to her knowledge. DIAGNOSTICS: EKG reveals atrial fibrillation with controlled ventricular rate Chest xray low lung volumes with generalized hazy appearance which could represent atelectasis versus pulmonary edema Laboratory data: WBC 10.5. Hemoglobin 11.4. Platelet count 234. Sodium 134. Potassium 3.8. BUN 49. Creatinine 2.49. Troponin negative x 1. proBNP 20,100. Current home cardiac medications include carvedilol 6.25 mg at night and 12.5 mg in the morning, rosuvastatin 5 mg at night, nifedipine 30 mg daily, metoprolol succinate 50 mg daily, Imdur 60 mg daily, Plavix 75 mg daily, Bumex 1 mg twice a day, and aspirin 81 mg daily August 22, 2023 Patient examined this morning. She sitting up in the chair. There is no family present. Patient clinically appears to be improving today. She denies any chest pain or pressure. She currently denies shortness of breath. Remains on IV diuretics. Vital signs are stable. Telemetry reveals atrial fibrillation with controlled ventricular rate. Blood pressure stable. Most recent reading 101/60. She is afebrile. Echocardiogram completed revealing ejection fraction 50 to 55%, mild to moderate aortic insufficiency, moderate MR, moderate to severe TR,, and mild pulmonary hypertension. Records from patient's primary measurement psychologist, Dr. Mack, out of [facility] were received and have been reviewed. The patient did have an echocardiogram performed in 2021 with an EF of 35 to 40%, akinetic inferior septal and anterior septal wall, hypokinetic apex, and mild MR. She underwent cardiac catheterization in May 11, 2021 with PCI to the proximal LAD and ostial LAD. She also underwent stenting to the circumflex. She underwent repeat heart catheterization on May 13, 2021 with successful shockwave and PCI of the RCA. She underwent Watchman procedure in November 2022. She underwent MELISSA in December 2022 which revealed well-seated Watchman device questionable leak that was later ruled out. Ejection fraction 45%. March 24, 2023 Patient examined this morning at the bedside. Patient currently denies chest pain or pressure. She denies shortness of breath at the time examination. She continues to report a frequent nonproductive cough. Bedside telemetry reveals atrial fibrillation with a heart in the 80s. Creatinine today 3.07. March 25, 2023 Patient examined this morning at the bedside. Patient currently denies chest pain or pressure. She denies shortness of breath. She continues to report a frequent nonproductive cough. Creatinine today is down to 2.80. She remains on oral diuretic therapy. Telemetry reveals atrial fibrillation with controlled ventricular rate. Blood pressure stable. March 26, 2023 Patient examined this morning at the bedside. Patient currently denies chest pain or pressure. She denies shortness of breath. She continues to report a frequent nonproductive cough. Creatinine today is down to 2.68. She remains on oral diuretic therapy. Telemetry reveals atrial fibrillation with controlled ventricular rate. Blood pressure stable. 03/27 Patient states that she is feeling well. She is not on oxygen. She remains in isolation for influenza. Blood pressure is 130/61, pulse ox 99% on room air, heart rate between 79 and 96. She still has some minor lower extremity edema but better. Repeat blood work reveals BUN 38 creatinine 2.6. Potassium 3.8, sodium 139. Patient states that she is anticipating discharge home today. PHYSICAL EXAM: VITAL SIGNS: Reviewed. GENERAL: Well-developed in no acute distress. HEENT: Head is normocephalic. Pupils are equal, round. Sclerae anicteric. Mucous membranes of the mouth are moist. Neck supple. No JVD or thyromegaly LUNGS: Respirations even and unlabored. Lungs diminished bilaterally with mild expiratory wheezing and rhonchi noted. HEART: Irregular rate and rhythm. S1 and S2 heard. ABDOMEN: Soft. Nondistended. Nontender. EXTREMITIES: Normal range of motion. No clubbing or cyanosis. Peripheral pulses intact. Trace bilateral lower extremity edema, improved from yesterday. NEUROLOGIC: Awake and alert. Oriented x 3. 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 Nephrology is following. Continue additional cardiac medications Continue with aspirin and Plavix at this time. Patient does not require anticoagulation due to recent Watchman procedure performed at [facility] Patient is cleared for discharge from cardiology and may follow-up in the office with her measurement psychologist in [place]. Nurse practitioner note has been reviewed by physician. Signing provider agrees with the documented findings, assessment, and plan of care documented by EVENING ANCHOR as a scribe. Objective - Vital Signs Vital signs: Vital Signs Temp 97.4 F L 03/27/23 09:55 Pulse 90 03/27/23 09:55 Resp 20 03/27/23 09:55 BP 130/61 03/27/23 09:55 Pulse Ox 99 03/27/23 09:55 FiO2 Intake & Output 03/26/23 03/27/23 03/27/23 18:59 06:59 18:59 Intake Total 720 550 118 Output Total 700 1600 500 Balance 20 -1050 -382 Weight 87.9 kg Intake: IV 10 10 Invasive Line 3 10 10 Oral 710 540 118 Output: Urine 700 1600 500 Other: Voiding Method Toilet Toilet Toilet # Voids 1 - Labs CBC & Chem 7: 03/26/23 08:49 03/27/23 10:21 Labs: Abnormal Lab Results - Last 24 Hours (Table) 03/26/23 03/26/23 03/26/23 Range/Units 11:45 16:28 19:26 BUN (7-17) mg/dL Creatinine (0.52-1.04) mg/dL Glucose (74-99) mg/dL POC Glucose (mg/dL) 111 H 115 H 147 H (70-110) mg/dL Calcium (8.4-10.2) mg/dL 03/27/23 03/27/23 Range/Units 05:58 10:21 BUN 38 H (7-17) mg/dL Creatinine 2.60 H (0.52-1.04) mg/dL Glucose 158 H (74-99) mg/dL POC Glucose (mg/dL) 117 H (70-110) mg/dL Calcium 8.2 L (8.4-10.2) mg/dL
== END 2023-03-27 14:08 | disposition home or self-care (01) | DRG 193 ==
LOC: EC 13:02 → 3SCARD 15:01
PROVIDERS: ADMIT Internal Medicine; ATTEND Internal Medicine
DX: J10.08 Influenza due to other identified influenza virus with other specified pneumonia (principal); I50.33 Acute on chronic diastolic (congestive) heart failure; I13.0 Hypertensive heart and chronic kidney disease with heart failure and stage 1 through stage 4 chronic kidney disease, or unspecified chronic kidney disease; N18.4 Chronic kidney disease, stage 4 (severe); N17.9 Acute kidney failure, unspecified; N39.0 Urinary tract infection, site not specified; Z11.52 Encounter for screening for COVID-19; J15.9 Unspecified bacterial pneumonia; E11.22 Type 2 diabetes mellitus with diabetic chronic kidney disease; F32.A Depression, unspecified; I48.0 Paroxysmal atrial fibrillation; I25.10 Atherosclerotic heart disease of native coronary artery without angina pectoris; I25.5 Ischemic cardiomyopathy; E78.5 Hyperlipidemia, unspecified; K21.9 Gastro-esophageal reflux disease without esophagitis; I25.2 Old myocardial infarction; G89.29 Other chronic pain; M54.9 Dorsalgia, unspecified; I08.3 Combined rheumatic disorders of mitral, aortic and tricuspid valves; I27.20 Pulmonary hypertension, unspecified; K13.0 Diseases of lips; M19.90 Unspecified osteoarthritis, unspecified site; M89.8X9 Other specified disorders of bone, unspecified site; Z79.02 Long term (current) use of antithrombotics/antiplatelets; Z79.4 Long term (current) use of insulin; Z79.82 Long term (current) use of aspirin; Z95.5 Presence of coronary angioplasty implant and graft; Z95.818 Presence of other cardiac implants and grafts; Z96.653 Presence of artificial knee joint, bilateral; Z79.899 Other long term (current) drug therapy; Z82.49 Family history of ischemic heart disease and other diseases of the circulatory system; Z88.0 Allergy status to penicillin; Z91.018 Allergy to other foods; Z87.19 Personal history of other diseases of the digestive system
CPT/HCPCS: 36415; 70450; 71045; 71046; 80048; 80053; 81001; 83036; 83605; 83735; 83880; 84145; 84484; 85025; 85379; 85610; 85730; 87636; 93005; 93306; 94640; 94760; 96374; 99291

== ENCOUNTER → 2023-06-16 | Outpatient (CLI) | payer MEDICARE ==
[2023-06-16 18:24] LABS: Basophils # (A) 0.05 X 10*3/uL (0.00-0.10); Basophils % (A) 0.7 %; Eosinophils % (A) 3.9 %; HCT 39.8 % (37.2-46.3); HGB 12.4 g/dL (12.0-15.0); Lymphocytes # (A) 1.67 X 10*3/uL (0.90-5.00); Lymphocytes % (A) 21.7 %; MCH 29.8 pg (27.0-32.0); MCHC 31.2 g/dL (32.0-37.0); MCV 95.7 FL (80.0-97.0); Mean Platelet Volume 9.9 FL (9.5-12.2); Monocytes # (A) 0.73 X 10*3/uL (0.20-1.00); Monocytes % (A) 9.5 %; NRBC Per 100 WBC 0 X 10*3/uL (0.00-0.01); Neutrophils # (A) 4.91 X 10*3/uL (1.80-7.70); Neutrophils % (A) 63.9 %; Platelet Count 240 X 10*3/uL (140-440); RBC 4.16 X 10*6/uL (4.10-5.20); RDW 14.8 % (11.5-14.5); WBC 7.68 X 10*3/uL (4.50-10.00)
== END | disposition home or self-care (01) ==
LOC: LABWHC1 14:11
PROVIDERS: ATTEND Internal Medicine Interventional Cardiology
DX: D64.9 Anemia, unspecified (principal)
CPT/HCPCS: 36415; 85025

== ENCOUNTER → 2024-04-30 | Outpatient (CLI) | payer MEDICARE ==
[2024-04-30 18:17] LABS: HCT 36.9 % (37.2-46.3); MCH 31.2 pg (27.0-32.0); MCHC 32.5 g/dL (32.0-37.0); MCV 95.8 FL (80.0-97.0); Mean Platelet Volume 10.2 FL (9.5-12.2); NRBC Per 100 WBC 0 X 10*3/uL (0.00-0.01); Platelet Count 262 X 10*3/uL (140-440); RBC 3.85 X 10*6/uL (4.10-5.20); RDW 13.1 % (11.5-14.5); WBC 7.28 X 10*3/uL (4.50-10.00)
[2024-04-30 18:30] LABS: % Iron Saturation 20.66 (12.00-45.00); Albumin 4.4 g/dL (3.8-4.9); BUN/Creat Ratio 14.41 Ratio (12.00-20.00); Blood Urea Nitrogen 59.1 mg/dL (9.0-27.0); Calcium 9.4 mg/dL (8.7-10.3); Carbon Dioxide 28.3 mmol/L (21.6-31.8); Chloride 95 mmol/L (96-109); Glucose 193 mg/dL (70-110); Iron 63 UG/DL (50-170); Magnesium 2.1 mg/dL (1.5-2.4); Phosphorus 4.3 mg/dL (2.4-5.1); Potassium 3.8 mmol/L (3.5-5.5); Sodium 139 mmol/L (135-145); Total Iron Binding Capacity 305 UG/DL (228-460)
== END | disposition home or self-care (01) ==
LOC: LABWHC1 14:31
PROVIDERS: ATTEND Internal Medicine Nephrology
DX: E55.9 Vitamin D deficiency, unspecified (principal); D63.1 Anemia in chronic kidney disease; N18.4 Chronic kidney disease, stage 4 (severe); N25.81 Secondary hyperparathyroidism of renal origin
CPT/HCPCS: 36415; 80048; 82040; 82652; 82728; 83540; 83550; 83735; 83970; 84100; 85027